=== PATIENT | male | born 1970 | race Hispanic/Latino ===

== ENCOUNTER 2018-10-13 21:24 | Inpatient (IN) | payer OTHER ==
[~2018-10-13] VITALS: Ht 177.8 cm; Wt 108.9 kg
--- OUTSIDE RECORDS SUMMARY | 2018-10-13 21:26 | XMS REPORT | Clinical Summary ---
Author Author KEVIN [facility] Address Unknown Phone Unavailable Care Team Providers Care Music Artist Name Role Phone PCP Unavailable Allergies No Known Allergies Medications End Date Status Medication Sig Dispensed Refills Start Date Active insulin glargine Inject 100 0 (BASAGLAR KWIKPEN U-100 Units INSULIN) 100 unit/mL (3 subcutaneousl mL) InPn y nightly. Active insulin aspart U-100 Inject 0 (NOVOLOG) 100 unit/mL (3 subcutaneousl mL) InPn y 3 (three) times daily before meals 20-50 Units DAILY . Active simvastatin (ZOCOR) 40 MG Take 40 mg by 0 tablet mouth daily. Active HYDROCHLOROTHIAZIDE ORAL Take 25 mg by 0 mouth daily. Active aspirin 81 MG EC tablet Take 81 mg by 0 mouth daily. Active amLODIPine (NORVASC) 10 Take 10 mg by 0 MG tablet mouth daily. Active Problems Not on file Encounters Care Team Description Date Type Specialty Ephraim Horton MD 09/08/2018 Hospital Encounter 09/08/2018 Orders Only General Internal Medicine after 10/12/2017 Social History Date Tobacco Use Types Packs/Day Years Used Never Smoker Smokeless Tobacco: Never Used Alcohol Use Drinks/Week oz/Week Comments Yes 2 Cans of 1.2 Occasional beer Alcohol Habits Answer Date Recorded How often do you have a drink containing alcohol? Never 09/08/2018 How many drinks containing alcohol do you have on Not asked a typical day when you are drinking? How often do you have six or more drinks on one Not asked occasion? Sex Assigned at Date Recorded Not on file Industry Job Start Date Occupation Not on file Not on file Not on file Travel End Travel History Travel Start No recent travel history available. Last Filed Vital Signs Time Taken Vital Sign Reading 09/08/2018 11:05 AM CDT Blood Pressure 175/79 09/08/2018 11:05 AM CDT Pulse 83 09/08/2018 11:05 AM CDT Temperature 36.4 C (97.5 F) 09/08/2018 11:05 AM CDT Respiratory Rate 16 09/08/2018 11:05 AM CDT Oxygen Saturation 99% - Inhaled Oxygen - Concentration 09/08/2018 11:05 AM CDT Weight 106 kg (233 lb 11.2 oz) 09/08/2018 11:05 AM CDT Height 177.8 cm (5' 10") 09/08/2018 11:05 AM CDT Body Mass Index 33.53 Plan of Treatment Not on file Procedures Comments Procedure Name Priority Date/Time Associated Diagnosis CBC W/PLT COUNT & AUTO Routine 09/08/2018 DIFFERENTIAL 11:22 AM CDT BASIC METABOLIC PANEL (7) Routine 09/08/2018 11:22 AM CDT CBC W/PLT COUNT & AUTO Routine 09/08/2018 DIFFERENTIAL 11:22 AM CDT ECG 12-LEAD Routine 09/08/2018 11:05 AM CDT Procedure Note - Interface, External Ris In - 09/08/2018 12:17 PM CDT Ventricula r Rate 83 BPM Atrial Rate 83 BPM P-R Interval 180 ms QRS Duration 84 ms Q-T Interval 374 ms QTC Calculatio n(Bazett) [address] [place] 31 degrees R [place] 17 degrees T [place] -41 degrees Normal sinus rhythm Left ventricula r hypertroph y with repolariza tion abnormalit y Abnormal ECG When compared with ECG of 1 14:55, T wave inversion more evident in Lateral leads ECG 12-LEAD Routine 09/08/2018 11:05 AM CDT after 10/12/2017 Results * CBC with platelet count + automated diff (09/08/2018 11:22 AM CDT) WBC 6.7 3.5 - 10.5 K/L [facility] RBC 5.59 4.63 - 6.08 M/L [facility] Hemoglobin 14.3 13.7 - 17.5 GM/DL [facility] Hematocrit 45.2 40.1 - 51.0 % [facility] MCV 80.9 79.0 - 92.2 fL [facility] MCH 25.6 (L) 25.7 - 32.2 pg [facility] MCHC 31.6 (L) 32.3 - 36.5 GM/DL [facility] RDW 13.4 11.6 - 14.4 % [facility] Platelets 125 (L) 150 - 450 K/CU MM [facility] MPV 13.4 (H) 9.4 - 12.4 fL [facility] nRBC 0 0 - 0 /100 WBC [facility] % Neutros 70 % [facility] % Lymphs 22 % [facility] % Monos 6 % [facility] % Eos 2 % [facility] % Baso 0 % [facility] # Neutros 4.68 1.78 - 5.38 K/L [facility] # Lymphs 1.46 1.32 - 3.57 K/L [facility] # Monos 0.41 0.30 - 0.82 K/L [facility] # Eos 0.11 0.04 - 0.54 K/L [facility] # Baso 0.01 0.01 - 0.08 K/L [facility] Immature 0 0 - 1 % [facility] Granulocytes-[facility] Specimen Blood Performing Organization Address City/State/Zipcode Phone Number [facility] [address] [place] [address] MEDICAL CENTER * Basic Metabolic Panel (09/08/2018 11:22 AM CDT) Sodium 135 (L) 136 - 145 meq/L [facility] Potassium 4.6 3.5 - 5.1 meq/L [facility] Chloride 100 98 - 107 meq/L [facility] CO2 29 22 - 29 meq/L [facility] BUN 11 7 - 21 mg/dL [facility] Creatinine 1.03 0.57 - 1.25 mg/dL [facility] Glucose 446 (HH) 70 - 105 mg/dL [facility] Calcium 9.0 8.4 - 10.2 mg/dL [facility] EGFR 77Comment: ESTIMATED GFR IS mL/min/1.73 sq m [facility] NOT ACCURATE CREATININE [facility] CLEARANCE IN PREDICTING GLOMERULAR FILTRATION RATE. ESTIMATED GFR IS NOT APPLICABLE FOR DIALYSIS PATIENTS. Specimen Blood Performing Organization Address City/State/Zipcode Phone Number [facility] [address] [place] [address] [facility] * ECG 12 lead (09/08/2018 11:05 AM CDT) Specimen Narrative Performed At Ventricular Rate 83 BPM GE MUSE Atrial Rate 83 BPM P-R Interval 180 ms QRS Duration 84 ms Q-T Interval 374 ms QTC Calculation(Bazett) [address] [place] 31 degrees R [place] 17 degrees T [place] -41 degrees Normal sinus rhythm Left ventricular hypertrophy with repolarization abnormality Abnormal ECG When compared with ECG of 29-JAN-2011 14:55, T wave inversion more evident in Lateral leads Confirmed by MD Gauthier Roberto ([id number]) on 09/08/2018 1:48:30 PM Procedure Note Interface, External Ris In - 09/08/2018 1:48 PM CDT Ventricular Rate 83 BPM Atrial Rate 83 BPM P-R Interval 180 ms QRS Duration 84 ms Q-T Interval 374 ms QTC Calculation(Bazett) 439 ms [address] [place] 31 degrees R [place] 17 degrees T [place] -41 degrees Normal sinus rhythm Left ventricular hypertrophy with repolarization abnormality Abnormal ECG When compared with ECG of 29-JAN-2011 14:55, T wave inversion more evident in Lateral leads Confirmed by MD Gauthier Roberto ([id number]) on 09/08/2018 1:48:30 PM Performing Organization Address City/State/Zipcode Phone Number GE MUSE after 10/12/2017 Insurance Payer Benefit Subscriber ID Type Phone Address Plan / Group AETNA - [employer]GD CARE AETNA xxxxxxxxxx HMO/POS [employer] ACCESS
--- OUTSIDE RECORDS SUMMARY | 2018-10-13 21:27 | XMS REPORT ---
Author Author [facility] Address Unknown Phone Unavailable Care Team Providers Care Sales And Production Manager Name Role Phone ANGEL KIDD Unavailable Unavailable Problems This patient has no known problems. Allergies, Adverse Reactions, Alerts This patient has no known allergies or adverse reactions. Medications This patient has no known medications. Results Test Description Test Time Test Comments Text Results Atomic Results Result Comments BASIC METABOLIC PANEL 2018-09-08 12:14:00 SODIUM (BEAKER) (test wzqn=070) 135 meq/L 136-145 POTASSIUM (BEAKER) (test fryq=106) 4.6 meq/L 3.5-5.1 CHLORIDE (BEAKER) (test sbaw=659) 100 meq/L 98-107 CO2 (BEAKER) (test feks=343) 29 meq/L 22-29 BLOOD UREA NITROGEN (BEAKER) (test bzlt=996) 11 mg/dL 7-21 CREATININE (BEAKER) (test rdsd=779) 1.03 mg/dL 0.57-1.25 GLUCOSE RANDOM (BEAKER) (test lmfg=394) 446 mg/dL 70-105 CALCIUM (BEAKER) (test lasl=121) 9.0 mg/dL 8.4-10.2 EGFR (BEAKER) (test uugs=6020) 77 mL/min/1.73 sq m ESTIMATED GFR IS NOT ACCURATE CREATININE CLEARANCE IN PREDICTING GLOMERULAR FILTRATION RATE. ESTIMATED GFR IS NOT APPLICABLE FOR DIALYSIS PATIENTS. CBC W/PLT COUNT & AUTO [id number] 11:35:00* Test Item Value Reference Range Comments WHITE BLOOD CELL COUNT (BEAKER) (test ftcs=744) 6.7 K/ L 3.5-10.5 RED BLOOD CELL COUNT (BEAKER) (test zenn=230) 5.59 M/ L 4.63-6.08 HEMOGLOBIN (BEAKER) (test vvrn=809) 14.3 GM/DL 13.7-17.5 HEMATOCRIT (BEAKER) (test noum=642) 45.2 % 40.1-51.0 MEAN CORPUSCULAR VOLUME (BEAKER) (test iuhl=145) 80.9 fL 79.0-92.2 MEAN CORPUSCULAR HEMOGLOBIN (BEAKER) (test oajq=947) 25.6 pg 25.7-32.2 MEAN CORPUSCULAR HEMOGLOBIN CONC (BEAKER) (test cxjw=665) 31.6 GM/DL 32.3-36.5 RED CELL DISTRIBUTION WIDTH (BEAKER) (test pghy=179) 13.4 % 11.6-14.4 PLATELET COUNT (BEAKER) (test xkhq=061) 125 K/CU MM 150-450 MEAN PLATELET VOLUME (BEAKER) (test mkjb=155) 13.4 fL 9.4-12.4 NUCLEATED RED BLOOD CELLS (BEAKER) (test ymuz=883) 0 /100 WBC 0-0 NEUTROPHILS RELATIVE PERCENT (BEAKER) (test xwed=827) 70 % LYMPHOCYTES RELATIVE PERCENT (BEAKER) (test nrmj=794) 22 % MONOCYTES RELATIVE PERCENT (BEAKER) (test jzvq=122) 6 % EOSINOPHILS RELATIVE PERCENT (BEAKER) (test poou=426) 2 % BASOPHILS RELATIVE PERCENT (BEAKER) (test tans=801) 0 % NEUTROPHILS ABSOLUTE COUNT (BEAKER) (test dvbj=877) 4.68 K/ L 1.78-5.38 LYMPHOCYTES ABSOLUTE COUNT (BEAKER) (test vlyw=322) 1.46 K/ L 1.32-3.57 MONOCYTES ABSOLUTE COUNT (BEAKER) (test saor=960) 0.41 K/ L 0.30-0.82 EOSINOPHILS ABSOLUTE COUNT (BEAKER) (test lygm=124) 0.11 K/ L 0.04-0.54 BASOPHILS ABSOLUTE COUNT (BEAKER) (test rgru=200) 0.01 K/ L 0.01-0.08 IMMATURE GRANULOCYTES-RELATIVE PERCENT (BEAKER) (test vgfw=4772) 0 % 0-1
[2018-10-13] MEDS ORDERED: CLONIDINE HCL 0.2 MG TAB PO ONE (21:45)
[2018-10-13] MEDS ORDERED: AMLODIPINE BESYLATE 10 MG TAB PO ONE (21:45)
[2018-10-13 21:54] LABS: BASOPHILS % 0.3 % (0.0-1.0); EOSINOPHILS # (AUTO) 0.1 (0.0-0.4); EOSINOPHILS % 1.5 % (0.0-6.0); HEMOGLOBIN 13.7 g/dL (14.0-18.0); LYMPHOCYTES # (AUTO) 1.4 (1.0-3.2); LYMPHOCYTES % 22.3 % (18.0-39.1); MEAN CORPUSCULAR HEMOGLOBIN 25.4 pg (28-32); MEAN CORPUSCULAR HGB CONC 32.6 g/dL (31-35); MEAN CORPUSCULAR VOLUME 77.8 fL (81-99); MONOCYTES # (AUTO) 0.4 (0.2-0.8); MONOCYTES % 6.2 % (4.4-11.3); NEUTROPHILS # (AUTO) 4.2 (2.1-6.9); NEUTROPHILS % 69.4 % (38.7-80.0); PLATELET COUNT 154 x10e3/uL (140-360); RED CELL DISTRIBUTION WIDTH 14.3 % (11.7-14.4)
--- NOTE | 2018-10-13 21:58 | NUR ---
RADIOLOGY AT BEDSIDE FOR CXR AT THIS TIME.
[2018-10-13 22:10] LABS: ALANINE AMINOTRANSFERASE 21 IU/L (0-55); ALBUMIN 3.1 g/dL (3.5-5.0); ALBUMIN/GLOBULIN RATIO 0.9 (0.8-2.0); ALKALINE PHOSPHATASE 68 IU/L (40-150); ANION GAP 14.3 mmol/L (8-16); BLOOD UREA NITROGEN 14 mg/dL (7-26); BUN/CREATININE RATIO 12 (6-25); CALCIUM 9.1 mg/dL (8.4-10.2); CARBON DIOXIDE 26 mmol/L (22-29); CHLORIDE 97 mmol/L (98-107); CREATINE KINASE 80 IU/L (30-200); CREATININE, SERUM 1.15 mg/dL (0.72-1.25); EST GLOMERULAR FILTRATION RATE > 60 ML/MIN (60-); POTASSIUM 4.3 mmol/L (3.5-5.1); SODIUM 133 mmol/L (136-145)
[2018-10-13 22:11] LABS: GLUCOSE 548 mg/dL (74-118)
--- NOTE | 2018-10-13 22:13 | NUR ---
DR. VILLALTA AND RN NOTIFIED AND AWARE OF CRIAL LAB VALUE; GLUCOSE 548.
[2018-10-13] MEDS ORDERED: INSULIN REGULAR, HUMAN 100 UNIT/1 ML 3ML VIAL SQ ONE (22:15)
--- NOTE | 2018-10-13 22:29 | Diagnostic Imaging Report ---
Examination: Single AP view of the chest. COMPARISON: None. INDICATION: Shortness of breath DISCUSSION: Lines/tubes: Sternotomy wires. Lungs: Pulmonary edema. Pleura: There is no pleural effusion or pneumothorax. Heart and mediastinum: Cardiomegaly. Bones and soft tissues: No acute bony abnormalities. IMPRESSION: 1. Cardiomegaly with edema Signed by: Dr. Jaden Sahni M.D. on 10/13/2018 10:25 PM
--- NOTE | 2018-10-13 22:40 | NUR ---
DR. VILLALTA AT BEDSIDE UPDATING PATIENT AND FAMILY ON PLAN OF CARE, BASED ON DIAGNOSTICS AND ASSESSMENT, AND INTENT TO ADMIT PT FOR MANAGEMENT OF CARE. PT VERBALIZES UNDERSTANDING, NO NEEDS VOICED AT THIS TIME.
[2018-10-13] MEDS ORDERED: FUROSEMIDE INJ 10 MG/ML 4 ML VIAL IV ONE (22:45)
--- NOTE | 2018-10-13 22:45 | NUR ---
PT GIVEN URINAL FOR VOIDING AND I&O.
[2018-10-13] MEDS: NITROGLYCERIN 2% OINT 1 GM PKT TOP SCH (22:52)
--- OUTSIDE RECORDS SUMMARY | 2018-10-13 22:59 | XMS REPORT | Clinical Summary ---
Author Author KEVIN [facility] Address Unknown Phone Unavailable Care Team Providers Care Fiberglass Model Maker Name Role Phone PCP Unavailable Allergies No [...] ms QTC Calculatio n(Bazett) 439 ms P [place] 31 degrees R [place] 17 degrees T [place] -41 degrees Normal sinus rhythm Left ventricula r hypertroph y with repolariza tion abnormalit y Abnormal ECG When compared with ECG of 1 14:55, T wave inversion more evident in Lateral leads ECG 12-LEAD Routine 09/08/2018 11:05 AM CDT after 10/12/2017 Results * CBC with platelet count + automated diff (09/08/2018 11:22 AM CDT) WBC 6.7 3.5 - 10.5 K/L [facility] RBC 5.59 4.63 - 6.08 M/L [facility] Hemoglobin 14.3 13.7 - 17.5 GM/DL [facility] Hematocrit 45.2 40.1 - 51.0 % [facility] MCV 80.9 79.0 - 92.2 fL [facility] MCH 25.6 (L) 25.7 - 32.2 pg [facility] MCHC 31.6 (L) 32.3 - 36.5 GM/DL [facility] RDW 13.4 11.6 - 14.4 % [facility] Platelets 125 (L) 150 - 450 K/CU MM [facility] MPV 13.4 (H) 9.4 - 12.4 fL [facility] nRBC 0 0 - 0 /100 WBC [facility] % Neutros 70 % [facility] % Lymphs 22 % [facility] % Monos 6 % [facility] % Eos 2 % [facility] % Baso 0 % [facility] # Neutros 4.68 1.78 - 5.38 K/L [facility] # Lymphs 1.46 1.32 - 3.57 K/L [facility] # Monos 0.41 0.30 - 0.82 K/L [facility] # Eos 0.11 0.04 - 0.54 K/L [facility] # Baso 0.01 0.01 - 0.08 K/L [facility] Immature 0 0 - 1 % [facility] Granulocytes-[facility] Specimen Blood Performing Organization Address City/State/Zipcode Phone Number [facility] [address] [place] [address] MEDICAL CENTER * Basic Metabolic Panel (09/08/2018 11:22 AM CDT) Sodium 135 (L) 136 - 145 meq/L [facility] Potassium 4.6 3.5 - 5.1 meq/L [facility] Chloride 100 98 - 107 meq/L [facility] CO2 29 22 - 29 meq/L [facility] BUN 11 7 - 21 mg/dL [facility] Creatinine 1.03 0.57 - 1.25 mg/dL [facility] Glucose 446 (HH) 70 - 105 mg/dL [facility] Calcium 9.0 8.4 - 10.2 mg/dL [facility] EGFR 77Comment: ESTIMATED GFR IS mL/min/1.73 sq m [facility] NOT ACCURATE CREATININE [facility] CLEARANCE IN PREDICTING GLOMERULAR FILTRATION RATE. ESTIMATED GFR IS NOT APPLICABLE FOR DIALYSIS PATIENTS. Specimen Blood Performing Organization Address City/State/Zipcode Phone Number [facility] [address] [place] [address] [facility] * ECG 12 lead (09/08/2018 11:05 AM CDT) Specimen Narrative Performed At Ventricular Rate 83 BPM GE MUSE Atrial Rate 83 BPM P-R Interval 180 ms QRS Duration 84 ms Q-T Interval 374 ms QTC Calculation(Bazett) 439 ms P [place] 31 degrees R Sebastian 17 degrees T [place] -41 degrees Normal sinus rhythm Left ventricular [...] 374 ms QTC Calculation(Bazett) 439 ms P [place] 31 degrees R Sebastian 17 degrees T [place] -41 degrees Normal sinus rhythm Left ventricular [...]
[2018-10-13] MEDS ORDERED: HYDRALAZINE HCL 20 MG/ML VIAL IV PRN (23:00)
[2018-10-13] MEDS ORDERED: DEXTROSE 50% SYRINGE 50 ML IV PRN (23:00)
[2018-10-14] VITALS (10 sets, daily range): BP systolic 153–204; BP diastolic 72–97
[2018-10-14] MEDS ORDERED: SIMVASTATIN40 MG PO (00:40)
[2018-10-14] MEDS ORDERED: NOVOLOG100 UNIT/1 SQ (00:40)
[2018-10-14] MEDS ORDERED: HYDROCHLOROTHIA25 MG (00:40)
[2018-10-14] MEDS ORDERED: basaglar SQ (00:40)
[2018-10-14] MEDS ORDERED: AMLODIPINE BESY10 MG PO (00:40)
--- NOTE | 2018-10-14 01:17 | NUR ---
I checked the blood pressure for the patient when he arrived to the unit and it was 183/81. Patient stated he started feeling a little dizzy and told him it was a common side effect of the blood pressure medication that were administered earlier in ER. I checked the blood pressure again at 0115 and it decrease to 169/78. Blood glucose decreased from 385 (reported by ER Nurse after insulin was administered) to 359. I advice the patient to use call light and to notify me of any changes in his condition. Will continue monitoring.
[2018-10-14] MEDS ORDERED: ONDANSETRON HCL INJ 2MG/ML 2ML 2 MG/ML VIAL IV PRN (03:00)
[2018-10-14] MEDS ORDERED: ACETAMINOPHEN 325 MG TAB PO PRN (03:00)
[2018-10-14 05:59] LABS: BASOPHILS % 0.2 % (0.0-1.0); EOSINOPHILS # (AUTO) 0.1 (0.0-0.4); EOSINOPHILS % 0.8 % (0.0-6.0); HEMATOCRIT 41.8 % (38.2-49.6); HEMOGLOBIN 13.8 g/dL (14.0-18.0); LYMPHOCYTES # (AUTO) 1.3 (1.0-3.2); LYMPHOCYTES % 14.6 % (18.0-39.1); MEAN CORPUSCULAR HEMOGLOBIN 25.9 pg (28-32); MEAN CORPUSCULAR VOLUME 78.6 fL (81-99); MONOCYTES # (AUTO) 0.6 (0.2-0.8); MONOCYTES % 6.4 % (4.4-11.3); NEUTROPHILS # (AUTO) 6.8 (2.1-6.9); NEUTROPHILS % 77.5 % (38.7-80.0); PLATELET COUNT 178 x10e3/uL (140-360); RED BLOOD COUNT 5.32 x10e6/uL (4.3-5.7); RED CELL DISTRIBUTION WIDTH 14.3 % (11.7-14.4)
[2018-10-14 06:15] LABS: CREATINE KINASE MB 1.8 ng/mL (0-5.0)
[2018-10-14] MEDS: NITROGLYCERIN 2% OINT 1 GM PKT TOP SCH ×3 (06:15→17:27)
[2018-10-14 06:36] LABS: ALANINE AMINOTRANSFERASE 21 IU/L (0-55); ALBUMIN 3.1 g/dL (3.5-5.0); ALBUMIN/GLOBULIN RATIO 0.9 (0.8-2.0); ALKALINE PHOSPHATASE 66 IU/L (40-150); ANION GAP 14.6 mmol/L (8-16); BLOOD UREA NITROGEN 19 mg/dL (7-26); BUN/CREATININE RATIO 16 (6-25); CALCIUM 9.4 mg/dL (8.4-10.2); CARBON DIOXIDE 28 mmol/L (22-29); CHLORIDE 96 mmol/L (98-107); CREATININE, SERUM 1.16 mg/dL (0.72-1.25); EST GLOMERULAR FILTRATION RATE > 60 ML/MIN (60-); GLUCOSE 354 mg/dL (74-118); POTASSIUM 4.6 mmol/L (3.5-5.1); SODIUM 134 mmol/L (136-145)
--- NOTE | 2018-10-14 06:36 | NUR ---
The patient is sleeping on the recliner as he starts experiencing SOB when laying flat. Reports no pain/discomfort at this time. Room air at the moment, but has O2 protocol. RAC IV intact. Nitro patch placed on his left upper arm. Recliner wheels locked. awaiting for Lab results/cardiac markers.
--- NOTE | 2018-10-14 07:33 | NUR ---
RECEIVED PATIENT RESTING IN RECLINER. NO SIGNS OF DISTRESS. RECLINER WHEELS LOCKED, CALL LIGHT IN REACH, WILL CONTINUE TO MONITOR PATIENT.
[2018-10-14] MEDS: FAMOTIDINE 20 MG TAB PO SCH ×2 (08:16→17:27)
[2018-10-14] MEDS: FUROSEMIDE INJ 10 MG/ML 4 ML VIAL IV SCH ×2 (08:16→17:27)
[2018-10-14] MEDS: LORATADINE 10 MG TAB PO SCH (08:16)
[2018-10-14] MEDS: HYDROCHLOROTHIAZIDE 25 MG TAB PO SCH (08:16)
[2018-10-14] MEDS: INSULIN REGULAR, HUMAN 100 UNIT/1 ML 3ML VIAL SQ SCH ×4 (08:36→20:03)
[2018-10-14] MEDS ORDERED: AMLODIPINE BESYLATE 10 MG TAB PO SCH (09:00)
--- NOTE | 2018-10-14 09:57 | NUR ---
PATIENT A/O X3, EVEN RESPIRATIONS ON RA. BOWEL SOUNDS ACTIVE, SKIN INTACT, 2+ PITTING BLE EDEMA. PATIENT AMBULATES AND VOIDS VIA TOILET. RIGHT AC 18 [address]. IV INTACT AND PATENT. NO PAIN OR DISCOMFORT AT THIS TIME. CALL LIGHT IN REACH WILL CONTINUE TO MONITOR PATIENT.
[2018-10-14] MEDS: HYDRALAZINE HCL 20 MG/ML VIAL IV PRN ×3 (11:36→21:40)
--- NOTE | 2018-10-14 12:40 | NUR ---
NOTIFIED NEURO OPHTHALMOLOGIST СЕРГЕЙ OF BP 202/92 AFTER PRN HYDRALAZINE GIVEN. ORDER TO DC AMLODIPINE AND START NIFEDIPINE 30 MG DAILY. NEW ORDERS IMPLEMENTED.
[2018-10-14] MEDS ORDERED: NIFEDIPINE CR 30 MG TAB PO ONE (13:00)
--- NOTE | 2018-10-14 19:29 | NUR ---
Report taken from am rn .walking rounds done.lyeing quietly in the bed.
[2018-10-14] MEDS ORDERED: BASAGLAR SQ SCH (21:00)
[2018-10-14] MEDS: BASAGLAR SQ SCH (21:00)
[2018-10-14] MEDS: SIMVASTATIN 40 MG TAB PO SCH (21:19)
--- NOTE | 2018-10-14 23:34 | NUR ---
Assessment done.no resp.distress.no pain voiced.voided.bed locked and in lowest position.phone and call light within reach.instructed to call for assistance as needed.
[2018-10-15] VITALS (8 sets, daily range): BP systolic 132–175; BP diastolic 61–79
[2018-10-15] MEDS: NITROGLYCERIN 2% OINT 1 GM PKT TOP SCH ×4 (00:18→17:44)
--- NOTE | 2018-10-15 03:18 | NUR ---
Blood main and sent to the lab.pt tolerated well.
[2018-10-15 03:30] LABS: BASOPHILS % 0.2 % (0.0-1.0); EOSINOPHILS # (AUTO) 0.1 (0.0-0.4); HEMATOCRIT 43.2 % (38.2-49.6); HEMOGLOBIN 14.3 g/dL (14.0-18.0); LYMPHOCYTES # (AUTO) 1.3 (1.0-3.2); LYMPHOCYTES % 14.2 % (18.0-39.1); MEAN CORPUSCULAR HEMOGLOBIN 25.6 pg (28-32); MEAN CORPUSCULAR HGB CONC 33.1 g/dL (31-35); MEAN CORPUSCULAR VOLUME 77.3 fL (81-99); MONOCYTES # (AUTO) 0.6 (0.2-0.8); NEUTROPHILS # (AUTO) 7.3 (2.1-6.9); NEUTROPHILS % 78.3 % (38.7-80.0); PLATELET COUNT 169 x10e3/uL (140-360); RED BLOOD COUNT 5.59 x10e6/uL (4.3-5.7); RED CELL DISTRIBUTION WIDTH 14.5 % (11.7-14.4)
[2018-10-15 03:47] LABS: ANION GAP 15.1 mmol/L (8-16); CALCIUM 9.1 mg/dL (8.4-10.2); CARBON DIOXIDE 27 mmol/L (22-29); CHLORIDE 96 mmol/L (98-107); CREATININE, SERUM 0.83 mg/dL (0.72-1.25); EST GLOMERULAR FILTRATION RATE > 60 ML/MIN (60-); GLUCOSE 199 mg/dL (74-118); MAGNESIUM 1.8 MG/DL (1.3-2.1); SODIUM 135 mmol/L (136-145)
[2018-10-15 04:07] LABS: POTASSIUM 3.1 mmol/L (3.5-5.1)
[2018-10-15 04:14] LABS: BLOOD UREA NITROGEN 18 mg/dL (7-26); BUN/CREATININE RATIO 22 (6-25)
[2018-10-15] MEDS ORDERED: POTASSIUM CHLORIDE 20 MEQ TAB CR PO STA (04:18)
[2018-10-15 04:27] LABS: CHOL/HDL RATIO 3.6 (3.9-4.7)
[2018-10-15 04:47] LABS: FREE T4 (FREE THYROXINE) 1.1 ng/dL (0.8-1.8); THYROID STIMULATING HORMONE 1.598 uIU/mL (0.350-4.940)
--- NOTE | 2018-10-15 06:19 | NUR ---
Certified Activities Director Delia into the unit.ordered consults with .informed to .
--- NOTE | 2018-10-15 07:00 | NUR ---
BEDSIDE REPORT RECEIVED FROM KORI AU. PT DENIES NEEDS AT THIS TIME.
[2018-10-15] MEDS: FAMOTIDINE 20 MG TAB PO SCH ×2 (08:25→16:40)
[2018-10-15] MEDS: LORATADINE 10 MG TAB PO SCH (08:25)
[2018-10-15] MEDS: HYDROCHLOROTHIAZIDE 25 MG TAB PO SCH (08:25)
[2018-10-15] MEDS: FUROSEMIDE INJ 10 MG/ML 4 ML VIAL IV SCH ×2 (08:25→16:40)
[2018-10-15] MEDS: INSULIN REGULAR, HUMAN 100 UNIT/1 ML 3ML VIAL SQ SCH ×4 (08:27→20:46)
[2018-10-15] MEDS ORDERED: LOSARTAN POTASSIUM 25 MG TAB PO SCH (09:00)
[2018-10-15] MEDS ORDERED: NIFEDIPINE CR 30 MG TAB PO SCH ×2 (09:00)
--- NOTE | 2018-10-15 13:48 | NUR ---
Nutrition Screen Note RD Recommendation for Physician: 1.Continue with ADA diet , add cardiac restrictions Plan of Care: RD following, monitoring for tolerance and adequacy, diet education Nutrition reason for involvement: New CHF diagnosis Primary Diagnose(s): CHF, Dyspnea, and Diabetes Type 2 PMH: CHF, Dyspnea, Diabetes Type 2 Ht: 70 in Wt: 240 lbs BMI: 34.5 kg/m2 IBW: 166lbs RD Assessment: (10/15) Chart reviewed. Labs and meds reviewed. Pt is a 48 y/o M with PMH of DM2 x 10 years. Reports new dx of CHF per MD. Noted no previous medical hx of heart failure. Patient reports good appetite and intake. Denies any N/V/D/C and any difficulties chewing or swallowing. Per pt, no recent significant weight changes . Noted following diabetic diet at home. Agreed to dietary education. Current Diet: ADA diet Malnutrition Evaluation (10/15) The patient does not meet criteria for a specified degree of malnutrition at this time. Will re-evaluate at follow-up as appropriate. Diet Education Needs Assessment: Diet education indicated, pt was agreeable Learner(s): pt Time spent: 15-20 min Barriers: No barriers identified. Cultural/Language Modifications: No cultural/language modifications noted. Readiness: Pt eager to learn. Method:Verbal and written education provided Topics: Choosing low sodium foods, limited added sodium in diet, fluid restriction, limiting carbohydrate rich foods with diabetic MyPlate method Understanding/Compliance: Expect good understanding from pt. Will benefit from reinforcement. All questions have been answered. Nutrition Care Level: Low Signed: Mary Anne Simpson MS, RDN, LD
[2018-10-15] MEDS: POTASSIUM CHLORIDE 20 MEQ TAB CR PO SCH (16:41)
[2018-10-15] MEDS: CARVEDILOL 12.5 MG TAB PO SCH (16:41)
--- NOTE | 2018-10-15 19:00 | Consultation ---
DATE OF CONSULTATION: 10/15/2018 Cardiology Consultation HISTORY OF PRESENT ILLNESS: This is a 48-year-old man with history of coronary artery disease, status post coronary artery bypass graft surgery in 2011/2012, hypertension, hyperlipidemia, diabetes mellitus, and obesity. The patient presented with progressively worsening shortness of breath, dyspnea on exertion, and lower extremity swelling, symptoms were moderate intensity, progressively worsening, worse with exertion, associated with some congestion in his chest. No typical angina. REVIEW OF SYSTEMS: Twelve-point review of system was conducted, is negative otherwise as stated above in the HPI. PAST MEDICAL HISTORY: As stated above in the HPI. PAST SURGICAL HISTORY: Coronary artery bypass graft surgery. PAST FAMILY HISTORY: No premature coronary artery disease and cardiac . SOCIAL HISTORY: No illicit drug, alcohol, or tobacco use. ALLERGIES: NO KNOWN DRUG ALLERGIES. MEDICATIONS: See medications reconciliation form. PHYSICAL EXAMINATION: VITAL SIGNS: Temperature is 97.3, heart rate is 82, respirations are 18, blood pressure is 165/72, and oxygen saturation is 96% on room air. GENERAL: He is a well-appearing, well-built, in no apparent distress. Alert and oriented x3. HEAD: Normocephalic, atraumatic. Eyes, extraocular muscles are intact. Conjunctivae clear. NECK: No JVD. No bruits. CARDIOVASCULAR: Regular rate and rhythm. LUNGS: Clear to auscultation. ABDOMEN: Soft, nontender, nondistended. EXTREMITIES: No clubbing, cyanosis, 1+ pitting edema. NEUROLOGIC: No focal deficits noted. CARDIOVASCULAR MEDICATIONS: Reviewed. LABORATORY DATA: Hemoglobin is 14. Creatinine 0.8 and potassium 3.1. Total cholesterol 226. Hemoglobin A1c is 14. RADIOGRAPHIC DATA: Echocardiogram showed left ventricular ejection fraction of 35% to 40%. Chest x-ray shows cardiomegaly with pulmonary edema. IMPRESSION: 1. Acute systolic congestive heart failure. 2. Coronary artery disease, status post prior coronary artery bypass graft surgery. 3. Uncontrolled diabetes mellitus. 4. Hypertension. RECOMMENDATIONS: Discontinue nifedipine. Increase losartan to 50 mg daily. Start carvedilol. Continue Lasix 40 mg IV b.i.d. for diuresis. Start aspirin and continue high-dose statin. The patient will require cardiac catheterization with possible intervention. Philipp [place], DO BM/JAREDL /[id number]
[2018-10-15] MEDS: SIMVASTATIN 40 MG TAB PO SCH (20:45)
[2018-10-15] MEDS: BASAGLAR SQ SCH (20:45)
[2018-10-16] VITALS (12 sets, daily range): BP systolic 124–161; BP diastolic 59–73
[2018-10-16] MEDS: NITROGLYCERIN 2% OINT 1 GM PKT TOP SCH ×4 (00:16→17:30)
[2018-10-16 03:46] LABS: BASOPHILS % 0.1 % (0.0-1.0); EOSINOPHILS # (AUTO) 0.1 (0.0-0.4); HEMOGLOBIN 13.6 g/dL (14.0-18.0); LYMPHOCYTES # (AUTO) 1.3 (1.0-3.2); LYMPHOCYTES % 18.5 % (18.0-39.1); MEAN CORPUSCULAR HEMOGLOBIN 25.3 pg (28-32); MEAN CORPUSCULAR HGB CONC 32.4 g/dL (31-35); MEAN CORPUSCULAR VOLUME 78.1 fL (81-99); MONOCYTES # (AUTO) 0.6 (0.2-0.8); MONOCYTES % 8.8 % (4.4-11.3); NEUTROPHILS # (AUTO) 4.9 (2.1-6.9); NEUTROPHILS % 70.3 % (38.7-80.0); PLATELET COUNT 180 x10e3/uL (140-360); RED BLOOD COUNT 5.38 x10e6/uL (4.3-5.7); RED CELL DISTRIBUTION WIDTH 14.5 % (11.7-14.4)
[2018-10-16 04:06] LABS: ANION GAP 15.2 mmol/L (8-16); BLOOD UREA NITROGEN 21 mg/dL (7-26); BUN/CREATININE RATIO 25 (6-25); CARBON DIOXIDE 28 mmol/L (22-29); CHLORIDE 99 mmol/L (98-107); CREATININE, SERUM 0.85 mg/dL (0.72-1.25); EST GLOMERULAR FILTRATION RATE > 60 ML/MIN (60-); GLUCOSE 104 mg/dL (74-118); POTASSIUM 3.2 mmol/L (3.5-5.1); SODIUM 139 mmol/L (136-145)
[2018-10-16] MEDS ORDERED: POTASSIUM CHLORIDE 20 MEQ TAB CR PO STA (04:43)
--- NOTE | 2018-10-16 06:54 | NUR ---
RECEIVED PATIENT RESTING IN BED. NO ACUTE DISTRESS NOTED. DENIES PAIN OR DISCOMFORT AT THIS TIME. CALL LIGHT WITHIN REACH. BED IN THE LOWEST POSITION.
[2018-10-16] MEDS: FUROSEMIDE INJ 10 MG/ML 4 ML VIAL IV SCH ×2 (08:36→16:37)
[2018-10-16] MEDS: LORATADINE 10 MG TAB PO SCH (08:36)
[2018-10-16] MEDS: FAMOTIDINE 20 MG TAB PO SCH ×2 (08:36→16:37)
[2018-10-16] MEDS: CARVEDILOL 12.5 MG TAB PO SCH ×2 (08:37→16:37)
[2018-10-16] MEDS: INSULIN REGULAR, HUMAN 100 UNIT/1 ML 3ML VIAL SQ SCH ×4 (08:37→20:44)
[2018-10-16] MEDS: HYDROCHLOROTHIAZIDE 25 MG TAB PO SCH (08:37)
[2018-10-16] MEDS: POTASSIUM CHLORIDE 20 MEQ TAB CR PO SCH ×2 (08:38→16:38)
[2018-10-16] MEDS ORDERED: LOSARTAN POTASSIUM 25 MG TAB PO SCH (09:00)
[2018-10-16] MEDS ORDERED: ONDANSETRON HCL 4 MG ORAL DISINTEGRATING TAB PO PRN (11:00)
[2018-10-16] MEDS ORDERED: LOSARTAN POTASSIUM 25 MG TAB PO NR (14:30)
--- NOTE | 2018-10-16 17:28 | Progress Note ---
DATE: 10/16/2018 Cardiology Progress Note SUBJECTIVE: The patient is feeling better, still with some lower extremity swelling. OBJECTIVE: VITAL SIGNS: Temperature is 97.2, heart rate 74, respirations are 19, blood pressure is 161/73, and oxygen saturation is 97% on room air. GENERAL: Well appearing, well built, in no apparent distress. CARDIOVASCULAR: Regular rate and rhythm. LUNGS: Clear to auscultation. ABDOMEN: Soft, nontender, and nondistended. EXTREMITIES: 1+ edema. CARDIOVASCULAR MEDICATIONS: Reviewed. LABORATORY DATA: Reviewed. TELEMETRY: Monitoring revealed normal sinus rhythm. IMPRESSION: 1. Acute systolic congestive heart failure. 2. Coronary artery disease, status post prior coronary artery bypass graft surgery. 3. Uncontrolled diabetes mellitus. 4. Hypertension. RECOMMENDATIONS: Increase losartan to 100 mg daily. Continue carvedilol. Continue Lasix intravenously for diuresis. Continue aspirin and statin. The patient will require cardiac catheterization tomorrow with possible intervention. Philipp Shelley DO BM/MODL /[id number]
--- NOTE | 2018-10-16 19:05 | NUR ---
REPORT GIVEN TO ONCOMING NURSE. PATIENT IS IN STABLE CONDITION. PATIENT DENIES PAIN OR DISCOMFORT AT THIS TIME. CALL LIGHT WITHIN REACH. BED IN THE LOWEST POSITION.
[2018-10-16] MEDS: BASAGLAR SQ SCH (20:43)
[2018-10-16] MEDS: SIMVASTATIN 40 MG TAB PO SCH (20:43)
[2018-10-17] VITALS (7 sets, daily range): BP systolic 127–173; BP diastolic 60–83
[2018-10-17] MEDS: NITROGLYCERIN 2% OINT 1 GM PKT TOP SCH ×4 (00:06→18:28)
[2018-10-17 04:17] LABS: BASOPHILS % 0.3 % (0.0-1.0); EOSINOPHILS # (AUTO) 0.2 (0.0-0.4); EOSINOPHILS % 2.6 % (0.0-6.0); HEMATOCRIT 41.6 % (38.2-49.6); HEMOGLOBIN 13.4 g/dL (14.0-18.0); LYMPHOCYTES # (AUTO) 1.7 (1.0-3.2); LYMPHOCYTES % 27.5 % (18.0-39.1); MEAN CORPUSCULAR HEMOGLOBIN 25.4 pg (28-32); MEAN CORPUSCULAR HGB CONC 32.2 g/dL (31-35); MEAN CORPUSCULAR VOLUME 78.9 fL (81-99); MONOCYTES # (AUTO) 0.6 (0.2-0.8); MONOCYTES % 9.2 % (4.4-11.3); NEUTROPHILS # (AUTO) 3.7 (2.1-6.9); NEUTROPHILS % 60.1 % (38.7-80.0); PLATELET COUNT 178 x10e3/uL (140-360); RED BLOOD COUNT 5.27 x10e6/uL (4.3-5.7); RED CELL DISTRIBUTION WIDTH 14.3 % (11.7-14.4)
[2018-10-17 04:35] LABS: ANION GAP 10.4 mmol/L (8-16); BLOOD UREA NITROGEN 22 mg/dL (7-26); BUN/CREATININE RATIO 25 (6-25); CALCIUM 9.1 mg/dL (8.4-10.2); CARBON DIOXIDE 30 mmol/L (22-29); CHLORIDE 98 mmol/L (98-107); CREATININE, SERUM 0.87 mg/dL (0.72-1.25); EST GLOMERULAR FILTRATION RATE > 60 ML/MIN (60-); GLUCOSE 177 mg/dL (74-118); MAGNESIUM 1.8 MG/DL (1.3-2.1); POTASSIUM 3.4 mmol/L (3.5-5.1); SODIUM 135 mmol/L (136-145)
[2018-10-17] MEDS ORDERED: POTASSIUM CHLORIDE 20 MEQ TAB CR PO STA (05:27)
--- NOTE | 2018-10-17 07:08 | NUR ---
Pt received resting in bed. Alert and oriented x3. Pt is NPO for Angiogram. Oriented to staff and surroundings. Encouraged to press call varela if help needed. Pt verbalized understanding of teaching. Will monitor
[2018-10-17] MEDS: INSULIN REGULAR, HUMAN 100 UNIT/1 ML 3ML VIAL SQ SCH ×4 (07:30→21:23)
[2018-10-17] MEDS: FUROSEMIDE INJ 10 MG/ML 4 ML VIAL IV SCH ×2 (08:46→18:28)
[2018-10-17] MEDS ORDERED: MIDAZOLAM HCL 2 MG/2 ML VIAL ONE (10:36)
[2018-10-17] MEDS ORDERED: IOPAMIDOL 300MG/ML 100 ML INFUS..BTL IV ONE (10:37)
[2018-10-17] MEDS ORDERED: HEPARIN SOD/SOD CHLORIDE 0 ML ONE (10:37)
[2018-10-17] MEDS ORDERED: FENTANYL CITRATE/PF 100MCG/2 ML INJ ONE (10:37)
[2018-10-17] MEDS ORDERED: SODIUM CHLORIDE 0.9% 1000ML 1,000 ML ONE (10:37)
[2018-10-17] MEDS ORDERED: LIDOCAINE HCL 1% LOCAL INJ 20 ML VIAL ONE (10:38)
--- NOTE | 2018-10-17 10:45 | NUR ---
Pt left for [facility] in laboratory technology teacher
[2018-10-17] MEDS ORDERED: LIDOCAINE HCL 2% LOCAL 20 ML VIAL ONE (10:47)
[2018-10-17] MEDS ORDERED: HEPARIN SOD/SOD CHLORIDE 2,000 ML ONE (10:47)
[2018-10-17] MEDS ORDERED: IOPAMIDOL 370 MG/ML 200 ML INFUS..BTL INJ ONE ×2 (10:47→11:31)
[2018-10-17] MEDS ORDERED: HYDRALAZINE HCL 20 MG/ML VIAL ONE (11:23)
--- NOTE | 2018-10-17 11:51 | NUR ---
Pt returned from [facility] via right groin. Emotional support given. Call varela within reach. Will monitor
[2018-10-17] MEDS: FAMOTIDINE 20 MG TAB PO SCH ×2 (13:27→18:28)
[2018-10-17] MEDS: HYDROCHLOROTHIAZIDE 25 MG TAB PO SCH (13:27)
[2018-10-17] MEDS: CARVEDILOL 12.5 MG TAB PO SCH ×2 (13:27→18:28)
[2018-10-17] MEDS: LOSARTAN POTASSIUM 100 MG TAB PO SCH (13:27)
[2018-10-17] MEDS: POTASSIUM CHLORIDE 20 MEQ TAB CR PO SCH ×2 (13:27→18:28)
[2018-10-17] MEDS: LORATADINE 10 MG TAB PO SCH (13:27)
--- NOTE | 2018-10-17 13:32 | Progress Note ---
DATE: 10/17/2018 SUBJECTIVE: The patient is feeling better. Denies any chest pain or shortness of breath. OBJECTIVE: VITAL SIGNS: Temperature is 96.8, heart rate is 70, respirations are 18, blood pressure is 138/65, oxygen saturation is 98% on room air. GENERAL: Well appearing, well built, no apparent distress. CARDIOVASCULAR: Regular rate and rhythm. LUNGS: Clear to auscultation. ABDOMEN: Soft, nontender, nondistended. EXTREMITIES: 1+ edema. MEDICATIONS: Cardiovascular medications reviewed. LABORATORY DATA: Reviewed. Hemoglobin 13.4. Creatinine is 0.87. IMPRESSION: 1. Coronary artery disease, status post coronary artery bypass graft surgery. 2. Acute systolic congestive heart failure. 3. Uncontrolled diabetes mellitus. 4. Hypertension. RECOMMENDATIONS: Coronary angiography and graft angiography were performed today. No intervention was needed. Continue aggressive medical management. Continue optimal medical therapy for his heart failure including losartan and carvedilol. The patient's left ventricular end-diastolic pressure was elevated still today, so we will continue intravenous Lasix for 1 more day. Philipp Shelley DO BM/MODL /[id number]
--- NOTE | 2018-10-17 14:38 | Operative Report ---
DATE OF PROCEDURE: 10/17/2018 SURGEON: Philipp Shelley DO PROCEDURES PERFORMED: 1. Conscious sedation, 30 minutes. 2. Selective coronary angiography x2. 3. Left heart catheterization. 4. Selective graft angiography x3. PREPROCEDURE DIAGNOSES: 1. Congestive heart failure. 2. Coronary artery disease, status post coronary artery bypass graft surgery. POSTPROCEDURE DIAGNOSES: 1. Congestive heart failure. 2. Coronary artery disease, status post coronary artery bypass graft surgery. ESTIMATED BLOOD LOSS: Less than 20 mL. SPECIMENS REMOVED: None. PROCEDURE IN DETAIL: After informed consent was obtained, the patient was brought to the cardiac catheterization laboratory in a fasting and nonsedated state. Bilateral groins were prepped and draped in the usual sterile fashion. A 2% lidocaine was infiltrated over the right anterior groin for local anesthesia. Using micropuncture needle, the right common femoral artery was accessed via modified Seldinger technique and a 5-Lao sheath was placed. Next, diagnostic coronary angiography and selective graft angiography was performed using a JL4 and JR4 catheters. The same JR catheter was used to enter the left ventricle and hemodynamic parameters were obtained. The patient tolerated the procedure well with no immediate complications, transported back to his room in stable condition. Hemostasis was achieved via Vascade device. PROCEDURE FINDINGS: 1. Left main coronary artery is patent with luminal irregularities. 2. The proximal LAD is patent and provides flow into a small 1st diagonal vessel. After the takeoff of the first diagonal, the LAD is 100% occluded. 3. Left circumflex coronary artery is a small vessel and provides flow into a 1st obtuse marginal vessel. The OM itself has a 70% stenosis. The caliber of this vessel is approximately 1.5 mm. Just after the takeoff of this OM, the circumflex is occluded. 4. Right coronary artery is a dominant vessel and provides the posterior descending coronary artery. The RCA itself has mild diffuse disease. 5. There is one saphenous vein graft anastomosed to the 2nd obtuse marginal vessel and is patent. 6. There is a saphenous vein graft attached to the 2nd diagonal branch with mild diffuse disease distally. The SVG itself is patent. 7. The left internal mammary artery is seen anastomosed to the mid LAD and is patent. 8. Left ventricular end-diastolic pressure is 38 mmHg with no aortic valve gradient present upon pullback. IMPRESSION: Coronary artery disease with patent grafts. RECOMMENDATIONS: Continue aggressive medical therapy. DO JOSEP Guajardo/EMMA /[id number]
--- NOTE | 2018-10-17 15:38 | NUR ---
CM SPOKE TO ERICA WITH [facility] REGARDING PATIENT PLAN OF CARE AND DISCHARGE PLAN. ERICA INFORMED OF PATIENT LACE SCORE OF 16 AND HISTORY OF CHF, DIABETES AND COPD. PATIENT NEEDS EDUCATION BUT MAY NOT BE A CANDIDATE FOR HOME HEALTH DUE TO NOT BEING HOME BOUND. CM TO FOLLOW UP WITH PATIENT PRIOR TO DISCHARGE AND GIVE HIM INSURANCE CM NAME AND NUMBER [employer] IF HE DOES NOT QUALIFY FOR HOME HEALTH. ERICA TO FOLLOW UP WITH COURT ONCE PATIENT IS DISCHARGED. ERICA WITH [facility]: [phone]
--- NOTE | 2018-10-17 15:42 | NUR ---
YOU HAVE A DESIGNATED SHAFT SINKER THAT HANDLES YOUR CASE THROUGH YOUR INSURANCE. BELOW IS HER NAME AND PHONE NUMBER SO YOU CAN CONTACT HER WHEN YOU HAVE QUESTIONS OR NEEDING RESOURCES WHEN AT HOME. ERICA RAMOS INSURANCE: [phone]
--- NOTE | 2018-10-17 19:31 | NUR ---
Pt resting comfortably in bed. Handoff given to oncoming nurse.
[2018-10-17] MEDS: SIMVASTATIN 40 MG TAB PO SCH (20:41)
[2018-10-17] MEDS: BASAGLAR SQ SCH (21:00)
[2018-10-18] VITALS: BP 137/65
[2018-10-18] MEDS: NITROGLYCERIN 2% OINT 1 GM PKT TOP SCH ×2 (00:41→06:44)
[2018-10-18 02:24] VITALS: BP 137/65
[2018-10-18 04:00] VITALS: BP 150/67
[2018-10-18] MEDS ORDERED: FUROSEMIDE40 MG PO (04:54)
[2018-10-18] MEDS ORDERED: COREG12.5 MG PO (04:54)
[2018-10-18] MEDS ORDERED: COZAAR100 MG PO (04:54)
[2018-10-18] MEDS ORDERED: KLOR-CON M2020 MEQ PO (04:54)
[2018-10-18] MEDS ORDERED: ASPIRIN325 MG PO (04:57)
--- NOTE | 2018-10-18 07:07 | NUR ---
pt alert resp even and unlabored at this time no distress noted, pt able to make needs known,no c/o pain when asked,pt call light in reach. will cont to monitor.
[2018-10-18 09:04] VITALS: BP 154/72
[2018-10-18] MEDS: FUROSEMIDE INJ 10 MG/ML 4 ML VIAL IV SCH (09:07)
[2018-10-18] MEDS: LORATADINE 10 MG TAB PO SCH (09:07)
[2018-10-18] MEDS: LOSARTAN POTASSIUM 100 MG TAB PO SCH (09:08)
[2018-10-18] MEDS: HYDROCHLOROTHIAZIDE 25 MG TAB PO SCH (09:08)
[2018-10-18] MEDS: CARVEDILOL 12.5 MG TAB PO SCH (09:08)
[2018-10-18] MEDS: POTASSIUM CHLORIDE 20 MEQ TAB CR PO SCH (09:08)
[2018-10-18] MEDS: FAMOTIDINE 20 MG TAB PO SCH (09:12)
--- NOTE | 2018-10-18 10:18 | Progress Note ---
DATE: 10/18/2018 Cardiology Progress Note SUBJECTIVE: Mr. Bay has no further chest pain. He feels much better since admission. PHYSICAL EXAMINATION: VITAL SIGNS: Heart rate 67, blood pressure 154/72, and O2 saturation 98%. CARDIOVASCULAR: Regular rhythm, S3 gallop, systolic murmur. LUNGS: Clear to auscultation bilaterally. TELEMETRY: Telemetry shows sinus rhythm. MEDICATIONS: Reviewed. DIAGNOSTIC DATA: Coronary angiography was reviewed. ASSESSMENT: 1. Coronary artery disease. 2. Acute systolic heart failure. RECOMMENDATIONS: Current medical therapy is appropriate. The patient is well compensated. He can be discharged home with close followup in the office. MD MAGGY Rodriguez/EMMA /[id number]
--- NOTE | 2018-10-18 10:31 | NUR ---
pt discharged home with family member, pt and family member where educated on his medication and new prescription, pt verbalized understanding. pt iv site removed cath tip intact, no swelling no redness to site.
--- NOTE | 2018-10-19 21:10 | Discharge Summary ---
ADMISSION DIAGNOSES: Hypertensive urgency, elevated BNP with no known congestive heart failure history, hyperlipidemia, uncontrolled type 2 diabetes, obesity. DISCHARGE DIAGNOSES: Hypertensive urgency, elevated BNP with no known congestive heart failure history, hyperlipidemia, uncontrolled type 2 diabetes, obesity, systolic congestive heart failure. HISTORY: The patient has a history of hypertension, hyperlipidemia, type 2 diabetes, CVA. 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 FAMILY HISTORY: Grandmother and aunt had diabetes. SOCIAL HISTORY: Occasional alcohol use. HOSPITAL COURSE: A 48-year-old male, complains of orthopnea, shortness of breath, dyspnea on exertion, bilateral lower extremity edema, dry cough, and chest congestion x3 days. He denies fever, productive cough, and sick contacts. His blood pressure was 230/122 in the ER. The patient says he forgot to take his home medications including his insulin, so his blood sugar was also 548 in the ER. On admission, the patient's home medicines were resumed. Due to the elevated BNP, an echo was ordered. The patient also resumed his home medications for diabetes. Chest x-ray on admission showed cardiomegaly with edema. BNP on admission was 572. The patient was started on Lasix. The echo came back with EF of around 35% to 40%. Cardiology was consulted for newly diagnosed CHF. The patient then had a heart catheterization on 10/17/2018, which showed coronary artery disease with patent grafts. Medical management will continue per Cardiology. The patient will now discharge home with aspirin, Coreg, Lasix, losartan, potassium, and his home medicines. He was instructed to keep better control of his diabetes as his A1c was elevated. He was also instructed to monitor his fluid intake to manage his CHF. He will follow up with primary care in 1 to 2 weeks and Cardiology as discussed. The patient understands discharge instructions and agrees to plan. Vital signs stable, the patient afebrile. Dictated by Delia Flores NP MD CLEOPATRA Woodward/EMMA /[id number]
== END 2018-10-18 10:25 | disposition home or self-care (01) | DRG 286 ==
LOC: ER 21:24 → ERHOLD 22:56 → MED/SURG 10-14 00:05
PROVIDERS: ADMIT Internal Medicine; ATTEND Internal Medicine
PROC: 4A023N7 Measurement of Cardiac Sampling and Pressure, Left Heart, Percutaneous Approach (ICD-10-PCS; principal; 2018-10-17)
PROC: B2111ZZ Fluoroscopy of Multiple Coronary Arteries using Low Osmolar Contrast (ICD-10-PCS; 2018-10-17)
PROC: B2131ZZ Fluoroscopy of Multiple Coronary Artery Bypass Grafts using Low Osmolar Contrast (ICD-10-PCS; 2018-10-17)
PROC: B2181ZZ Fluoroscopy of Left Internal Mammary Bypass Graft using Low Osmolar Contrast (ICD-10-PCS; 2018-10-17)
DX: I11.0 Hypertensive heart disease with heart failure (principal); I50.21 Acute systolic (congestive) heart failure; E78.5 Hyperlipidemia, unspecified; E11.65 Type 2 diabetes mellitus with hyperglycemia; E66.9 Obesity, unspecified; Z68.32 Body mass index [BMI] 32.0-32.9, adult; I25.10 Atherosclerotic heart disease of native coronary artery without angina pectoris; I25.82 Chronic total occlusion of coronary artery; Z95.1 Presence of aortocoronary bypass graft; Z86.73 Personal history of transient ischemic attack (TIA), and cerebral infarction without residual deficits; Z89.421 Acquired absence of other right toe(s); Z83.3 Family history of diabetes mellitus; T38.3X6A Underdosing of insulin and oral hypoglycemic [antidiabetic] drugs, initial encounter; Z91.138 Patient's unintentional underdosing of medication regimen for other reason; Z79.82 Long term (current) use of aspirin; Z79.4 Long term (current) use of insulin
CPT/HCPCS: 36415; 71045; 80048; 80053; 80061; 82550; 82553; 82948; 83036; 83735; 83880; 84439; 84443; 84484; 85025; 93005; 93306; 93459; 99285; C1760; C1769; J0360; J1817; J1940; J2001; J2250; J3010; J7030; Q9967

== ENCOUNTER 2019-06-07 20:55 | Emergency (ER) | payer OTHER ==
[~2019-06-07] VITALS: Ht 177.8 cm; Wt 108.9 kg
[~2019-06-07 20:55] MED LIST: AMLODIPINE BESY10 MG PO; ASPIRIN325 MG PO; COREG12.5 MG PO; COZAAR100 MG PO; FUROSEMIDE40 MG PO; HYDROCHLOROTHIA25 MG; KLOR-CON M2020 MEQ PO; NOVOLOG100 UNIT/1 SQ; SIMVASTATIN40 MG PO; basaglar SQ
[2019-06-07 21:26] LABS: BASOPHILS % 0.5 % (0.0-1.0); EOSINOPHILS # (AUTO) 0.2 (0.0-0.4); EOSINOPHILS % 2.5 % (0.0-6.0); HEMATOCRIT 47.4 % (38.2-49.6); HEMOGLOBIN 14.9 g/dL (14.0-18.0); LYMPHOCYTES # (AUTO) 1.3 (1.0-3.2); LYMPHOCYTES % 22.1 % (18.0-39.1); MEAN CORPUSCULAR HGB CONC 31.4 g/dL (31-35); MEAN CORPUSCULAR VOLUME 79.5 fL (81-99); MONOCYTES # (AUTO) 0.3 (0.2-0.8); MONOCYTES % 5.6 % (4.4-11.3); NEUTROPHILS # (AUTO) 4.2 (2.1-6.9); NEUTROPHILS % 69.1 % (38.7-80.0); PLATELET COUNT 191 x10e3/uL (140-360); RED BLOOD COUNT 5.96 x10e6/uL (4.3-5.7); RED CELL DISTRIBUTION WIDTH 14.4 % (11.7-14.4)
[2019-06-07 21:42] LABS: ALBUMIN 3.7 g/dL (3.5-5.0); ALBUMIN/GLOBULIN RATIO 0.9 (0.8-2.0); ANION GAP 13.7 mmol/L (8-16); CALCIUM 10.1 mg/dL (8.4-10.2); CREATININE, SERUM 1.32 mg/dL (0.72-1.25); POTASSIUM 4.7 mmol/L (3.5-5.1)
[2019-06-07 21:48] LABS: CREATINE KINASE MB 2.6 ng/mL (0-5.0)
[2019-06-07] MEDS ORDERED: SODIUM CHLORIDE 0.9% 1000ML 1,000 ML ONE (22:09)
[2019-06-07] MEDS ORDERED: INSULIN REGULAR, HUMAN 100 UNIT/1 ML 3ML VIAL ONE (22:12)
[2019-06-07] MEDS ORDERED: SODIUM CHLORIDE 0.9% 100 ML ONE (22:12)
[2019-06-07] MEDS ORDERED: IOPAMIDOL 370 MG/ML 200 ML INFUS..BTL INJ ONE (22:12)
[2019-06-07] MEDS ORDERED: INSULIN REGULAR, HUMAN 100 UNIT/1 ML 3ML VIAL IV ONE (22:15)
[2019-06-07] MEDS ORDERED: SODIUM CHLORIDE 0.9% 1000ML 1,000 ML IV SCH (22:15)
--- NOTE | 2019-06-07 22:39 | Diagnostic Imaging Report ---
EXAMINATION: Head CT HISTORY: Lightheadedness, weakness, history of prior CVA. COMPARISON: None. TECHNIQUE: Multidetector axial images were obtained without contrast from the foramen magnum to the vertex . The images were reconstructed using brain and bone algorithms. Thin section brain images were reformatted into coronal and sagittal planes. Image quality: Motion/streaking artifact limits the evaluation of the skull base and posterior cranial fossa. Dose modulation, iterative reconstruction, and/or weight based adjustment of the mA/kV was utilized to reduce the radiation dose to as low as reasonably achievable. FINDINGS: Parenchyma: 1. Cortico-subcortical encephalomalacia in the left medial occipital lobe along the lingual gyrus, right inferior cerebellum and right medial frontal lobe/genu of the corpus callosum, consistent with chronic infarcts. Tiny chronic lacunar infarct in the left putamen, right superior cerebellum and left paramedian cesar. 2. Few scattered white matter hypodensities, most likely nonspecific chronic microvascular ischemic changes. 3. No mass or hemorrhage. No CT evidence of acute territorial vascular insult. Extra-axial spaces:No abnormal density. No extra-axial fluid collections Brain volume: Normal for age. Ventricles: No hydrocephalus or displacement. Arteries: No density suggestive of thrombus. Dural sinuses: No abnormal density. Foramen magnum: No mass, Chiari malformation, or basilar invagination. Sella: No obvious mass. Paranasal/mastoid sinuses: Imaged portions unremarkable. Skull/Scalp: No lytic or blastic lesions. No fractures. Right frontoparietal scalp swelling. IMPRESSION: 1. No acute intracranial abnormalities, particularly no hemorrhage or cortical infarcts. 2. Multiple chronic infarcts as detailed above. Signed by: Dr. Leah Richards M.D. on 06/07/2019 10:36 PM
--- NOTE | 2019-06-08 00:37 | Diagnostic Imaging Report ---
EXAMINATION: CT angiogram of the [place] and neck with contrast CLINICAL HISTORY: Left-sided numbness, lightheadedness, weakness, mini stroke. COMPARISON: Head CT performed earlier on the same day TECHNIQUE: The head and neck was scanned utilizing a multidetector helical scanner from the thoracic inlet to the vertex after the I.V contrast administration of 100 mL of Isovue-370. Multiplanar sagittal and coronal reconstructions were performed as well. For optimization of of anatomic evaluation, multi-planar reconstructions, maximum intensity projections, and advanced 3D off-line post-processing was obtained and performed on a dedicated stand-alone workstation under the direct supervision of the interpreting physician. Dose modulation, iterative reconstruction, and/or weight based adjustment of the mA/kV was utilized to reduce the radiation dose to as low as reasonably achievable. CT ANGIOGRAM OF THE [place] FINDINGS: Atherosclerotic calcification of the bilateral cavernous ICAs with mild to moderate narrowing. The right intracranial vertebral artery is not visualized, likely related to chronic occlusion. The right PICA is not visualized either. Atherosclerotic calcification of the left intracranial vertebral artery with moderate stenoses near the foramen magnum level. Otherwise the internal carotid artery segments as well as the middle cerebral and anterior cerebral arteries are normal in caliber. The vertebro-basilar circulation is otherwise normal. No vascular malformation or aneurysmal dilatation is seen. The draining venous structures are normal and patent. Anatomic variation: Anterior Communicating Artery: Patent. Posterior Communicating Arteries: Not well visualized. Vertebral arteries: The left is dominant and patent. The right vertebral artery is occluded. CT ANGIOGRAM OF THE NECK FINDINGS: If present, stenosis of the carotid bulbs is measured based on NASCET criteria i.e area of maximum stenosis compared to the cervical ICA distal to the bulb. Nonspecific partially visualized linear hyperdensities, probable contrast material anterior to the aortic arch may correspond to artifact versus draining veins, less likely contrast extravasation. Atherosclerotic calcification of the origin of the left vertebral artery without significant stenoses. Otherwise the origin of the vessels is patent bilaterally. Right Carotid Artery: Soft and calcified atherosclerotic plaque at the carotid bifurcation without associated stenoses. Otherwise the common carotid, internal and external carotid arteries at the level of the neck are normal in caliber, and patent, no evidence of stenoses. Left carotid artery: Soft and calcified plaque at the carotid bifurcation without significant stenoses. Otherwise the common carotid, internal and external carotid arteries at the level of the neck are normal in caliber, and patent, no evidence of stenoses. Vertebral Arteries: Complete occlusion of the right vertebral artery. The left vertebral artery is patent and normal in caliber in the neck. IMPRESSION: 1. 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 2. Prominent atherosclerosis of the left intracranial vertebral artery with moderate stenosis. 3. Otherwise the carotid arteries are patent bilaterally and the head and neck. 4. Partially visualized nonspecific linear hyperdensities anterior to the aortic arch as detailed above, if clinically indicated consider chest CT with contrast for further evaluation. Signed by: Dr. Leah Richards M.D. on 06/08/2019 12:34 AM
[2019-06-08] MEDS ORDERED: HYDRALAZINE HCL 20 MG/ML VIAL IV STA (01:00)
[2019-06-08] MEDS ORDERED: HYDRALAZINE HCL 20 MG/ML VIAL ONE (01:05)
== END 2019-06-08 01:25 | disposition home or self-care (01) ==
LOC: ER 20:55
DX: R42 Dizziness and giddiness (principal); R53.1 Weakness; I10 Essential (primary) hypertension; E11.9 Type 2 diabetes mellitus without complications; I25.10 Atherosclerotic heart disease of native coronary artery without angina pectoris; E78.5 Hyperlipidemia, unspecified; Z95.1 Presence of aortocoronary bypass graft; Z86.73 Personal history of transient ischemic attack (TIA), and cerebral infarction without residual deficits; Z79.82 Long term (current) use of aspirin; Z79.4 Long term (current) use of insulin
CPT/HCPCS: 36415; 70450; 70496; 70498; 80053; 82550; 82553; 84484; 85025; 93005; 99284; J0360; J1817; J7030; J7050; Q9967

== ENCOUNTER 2019-09-18 05:30 | Inpatient (IN) | payer OTHER ==
[~2019-09-18] VITALS: Ht 177.8 cm; Wt 113.4 kg
--- OUTSIDE RECORDS SUMMARY | 2019-09-18 05:32 | XMS REPORT | Clinical Summary ---
Author Author [facility] Address Unknown Phone Unavailable Care Team Providers Care Epidemiology Internship Name Role Phone PCP Unavailable Allergies No [...] mouth daily. Active Problems Not on file Social History Date Tobacco Use Types Packs/Day Years Used Never Smoker Smokeless Tobacco: Never Used Alcohol Use Drinks/Week oz/Week Comments Yes 2 Cans of 1.2 Occasional beer Alcohol Habits Answer Date Recorded How often do you have a drink containing alcohol? Never 09/08/2018 How many drinks containing alcohol do you have on No t asked a typical day when you are drinking? How often do you have six or more drinks on one Not asked occasion? Sex Assigned at Date Recorded Not on file Industry Job Start Date Occupation Not on file Not on file Not on file Travel End Travel History Travel Start No recent travel history available. Last Filed Vital Signs Not on file Plan of Treatment Not on file Results Not on fileafter 09/17/2018 Insurance Payer Benefit Subscriber ID Type Phone Address Plan / Group [employer] - [employer] C[employer] xxxxxxxxxx HMO/POS [place] [id number]
--- OUTSIDE RECORDS SUMMARY | 2019-09-18 05:33 | XMS REPORT ---
Author Author [facility] t Organization [facility] Address [address] [place] [address] Phone Unavailable Care Team Providers Care Administrative Services Director Name Role Phone Shamir MOSELEY DO PCP MARY CLARKE Attphys Unavailable Jerod VILLALTA Attphys Unavailable ANGEL KIDD Attphys Unavailable Payers Payer Name Policy Type Policy Number Effective Date Expiration Date Damion Patterson [facility] [id number] 2011 00:00:00 [facility] Problems Condition Name Condition Details Condition Category Status Onset Date Resolution Date Last Treatment Date Treating Clinician Comments Source Congestive heart failure CHF (congestive heart failure) Problem Active [facility] Dyspnea Dyspnea Problem Active [facility] Allergies, Adverse Reactions, Alerts This patient has no known allergies or adverse reactions. Medications Ordered Medication Name Filled Medication Name Start Date Stop Da te Current Medication? Ordering Clinician Indication Dosage Frequency Signature (SIG) Comments Components Source Aspirin 325 Mg Tablet Aspirin 325 Mg Tablet 2018-10-18 00:00:00 Yes Delia M Mark Carpenter Mold 325 Daily [facility] Carvedilol (Coreg) 12.5 Mg Tab Carvedilol (Coreg) 12.5 Mg Ta b 2018-10-18 00:00:00 Yes Delia M Hughson Carpenter Mold 12.5 Twice A Day [facility] Furosemide 40 Mg Tablet Furosemide 40 Mg Tablet 2018-10-18 00:00:00 Yes Delia M Mark Carpenter Mold 40 Twice A Day [facility] Losartan Potassium (Cozaar) 100 Mg Tablet Losartan Pot assium (Cozaar) 100 Mg Tablet 2018-10-18 00:00:00 Yes Delia M Hughson Carpenter Mold 100 Daily [facility] Potassium Chloride (Klor-Con M20) 20 Meq Tabcr Potassi um Chloride (Klor-Con M20) 20 Meq Tabcr 2018-10-18 00:00:00 Yes Delia Khan Mark Carpenter Mold 20 Twice A Day [facility] Basaglar Basaglar Yes 100 Bedtime [facility] Hydrochlorothiazide 25 Mg Tablet Hydrochlorothiazide 25 Mg Tablet Yes 25 Daily [facility] Insulin Aspart (Novolog) 100 Unit/1 Ml Cartridge Insul in Aspart (Novolog) 100 Unit/1 Ml Cartridge Yes 20 Daily [facility] Simvastatin 40 Mg Tablet Simvastatin 40 Mg Tablet Yes 40 Today At 9:00PM [facility] Amlodipine Besylate 10 Mg Tablet, 10 Mg Oral Amlodipin e Besylate 10 Mg Tablet, 10 Mg Oral 2018-10-18 00:00:00 No 10 Daily [facility] Procedures Procedure Date / Time Performed Performing Clinician [facility] e Computed tomography of brain without radiopaque contrast 00:00:00 VINCE [facility] Computed tomography angiography of brain 2019-06-07 00:00:00 MARILYN BLACKMAN [facility] CT angiography of neck 2019-06-07 00:00:00 [facility] MEASURE OF CARDIAC SAMPL & PRESSURE, L HEART, PERC APPROACH 2018-10-17 00:00:00 SHANTEL MAC [facility] FLUOROSCOPY OF MULT COR ART USING L OSM CONTRAST 2018-10-17 00:00:00 SHANTEL MAC [facility] FLUOROSCOPY OF MULT COR A GRAFT USING L OSM CONTRAST 2018-10 00:00:00 SHANTEL MAC [facility] FLUOROSCOPY OF L INT MAMM GRAFT USING L OSM CONTRAST 2018-10 00:00:00 ESTEFANIA [facility] Encounters Start Date/Time End Date/Time Encounter Type Admission Type [facility] Facility Care Department Encounter ID Source 2019-06-07 20:55:00 2019-06-08 01:25:00 Departed Emergency Room 1 MARY CLARKE [facility] [id number] [facility] 2018-10-13 22:56:00 2018-10-18 10:25:00 Discharged Inpatient 1 RIRI VILLALTA [facility] [id number] [facility] Results Test Description Test Time Test Comments Results Result Comments Source CTA NECK 2019-06-08 00:17:00 [facility] [address] [address] Patient Name: SHOAIB JOHANSEN MR #: [id number] : 1970 Age/Sex: 48/M Req #: [id number] Adm Physician: Ordered by: MARY CLARKE DO Report #: [id number] Location: ER Room/Bed: Procedure: [id number] CT/CTA NECK Exam Date: Exam Time: REPORT STATUS: Signed EXAMINATION: CT angiogram of the pilot station of [place] and neck with contrast CLINICAL HISTORY: Left-sided numbness, lightheadedness, weakness, mini stroke. COMPARISON: Head CT performed earlier on the same day TECHNIQUE: The head and neck was scanned utilizing a multidetector helical scanner from the thoracic inlet to the vertex after the I.V contrast administration of 100 mL of Isovue-370. Multiplanar sagittal and coronal reconstructions were performed as well. For optimization of of anatomic evaluation, multi-planar reconstructions, maximum intensity projections, and advanced 3D off-line post-processing was obtained and performed on a dedicated stand-alone workstation under the direct supervision of the interpreting physician. Dose modulation, iterative reconstruction, and/or weight based adjustment of the mA/kV was utilized to reduce the radiation dose to as low as reasonably achievable. CT ANGIOGRAM OF [place] FINDINGS: Atherosclerotic calcification of the bilateral cavernous ICAs with mild to moderate narrowing. The right intracranial vertebral artery is not visualized, likely related to chronic occlusion. The right PICA is not visualized either. Atherosclerotic calcification of the left intracranial vertebral artery with moderate stenoses near the foramen magnum level. Otherwise the internal carotid artery segments as well as the middle cerebral and anterior cerebral arteries are normal in caliber. The vertebro-basilar circulation is otherwise normal. No vascular malformation or aneurysmal dilatation is seen. The draining venous structures are normal and patent. Anatomic variation: Anterior Communicating Artery: Patent. Posterior Communicating Arteries: Not well visualized. Vertebral arteries: The left is dominant and patent. The right vertebral artery is occluded. CT ANGIOGRAM OF THE NECK FINDINGS: If present, stenosis of the carotid bulbs is measured based on NASCET criteria i.e area of maximum stenosis compared to the cervical ICA distal to the bulb. Nonspecific partially visualized linear hyperdensities, probable contrast material anterior to the aortic arch may correspond to artifact versus draining veins, less likely contrast extravasati on. Atherosclerotic calcification of the origin of the left vertebral artery without significant stenoses. Otherwise the origin of the vessels is patent bilaterally. Right Carotid Artery: Soft and calcified atherosclerotic plaque at the carotid bifurcation without associated stenoses. Otherwise the common carotid, internal and external carotid arteries at the level of the neck are normal in caliber, and patent, no evidence of stenoses. Left carotid artery: Soft and calcified plaque at the carotid bifurcation without significant stenoses. Otherwise the common carotid, internal and external carotid arteries at the level of the neck are normal in caliber, and patent, no evidence of stenoses. Vertebral Arteries: Complete occlusion of the right vertebral artery. The left vertebral artery is patent and normal in caliber in the neck. IMPRESSION: 1. 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 2. Prominent atherosclerosis of the left intracranial vertebral artery with moderate stenosis. 3. Otherwise the carotid arteries are patent bilaterally and the head and neck. 4. Partially visualized nonspecific linear hyperdensities anterior to the aortic arch as detailed above, if clinically indicated consider chest CT with contrast for further evaluation. Signed by: Dr. Juan Richards M.D. on 06/08/2019 12:34 AM Dictated By: JUAN RICHARDS MD Transcribed By: JUAN on 06/08/1934 COPY TO: MARY CLARKE DO CTA BRAIN 2019-06-08 00:17:[address] [address] Patient Name: SHOAIB JOHANSEN MR #: [id number] : 1970 Age/Sex: 48/M Req #: [id number] Adm Physician: Ordered by: MARY CLARKE DO Report #: [id number] Location: ER Room/Bed: Procedure: [id number] CT/CTA BRAIN Exam Date: Exam Time: REPORT STATUS: Signed EXAMINATION: CT angiogram of the pilot station of [place] and neck with contrast CLINICAL HISTORY: Left-sided numbness, lightheadedness, weakness, mini stroke. COMPARISON: Head CT performed earlier on the same day TECHNIQUE: The head and neck was scanned utilizing a multidetector helical scanner from the thoracic inlet to the vertex after the I.V contrast administration of 100 mL of Isovue-370. Multiplanar sagittal and coronal reconstructions were performed as well. For optimization of of anatomic evaluation, multi-planar reconstructions, maximum intensity projections, and advanced 3D off-line post-processing was obtained and performed on a dedicated stand-alone workstation under the direct supervision of the interpreting physician. Dose modulation, iterative reconstruction, and/or weight based adjustment of the mA/kV was utilized to reduce the radiation dose to as low as reasonably achievable. CT ANGIOGRAM OF THE [place] FINDINGS: Atherosclerotic calcification of the bilateral cavernous ICAs with mild to moderate narrowing. The right intracranial vertebral artery is not visualized, likely related to chronic occlusion. The right PICA is not visualized either. Atherosclerotic calcification of the left intracranial vertebral artery with moderate stenoses near the foramen magnum level. Otherwise the internal carotid artery segments as well as the middle cerebral and anterior cerebral arteries are normal in caliber. The vertebro-basilar circulation is otherwise normal. No vascular malformation or aneurysmal dilatation is seen. The draining venous structures are normal and patent. Anatomic variation: Anterior Communicating Artery: Patent. Posterior Communicating Arteries: Not well visualized. Vertebral arteries: The left is dominant and patent. The right vertebral artery is occluded. CT ANGIOGRAM OF THE NECK FINDINGS: If present, stenosis of the carotid bulbs is measured based on NASCET criteria i.e area of maximum stenosis compared to the cervical ICA distal to the bulb. Nonspecific partially visualized linear hyperdensities, probable contrast material anterior to the aortic arch may correspond to artifact versus draining veins, less likely contrast extravasat ion. Atherosclerotic calcification of the origin of the left vertebral artery without significant stenoses. Otherwise the origin of the vessels is patent bilaterally. Right Carotid Artery: Soft and calcified atherosclerotic plaque at the carotid bifurcation without associated stenoses. Otherwise the common carotid, internal and external carotid arteries at the level of the neck are normal in caliber, and patent, no evidence of stenoses. Left carotid artery: Soft and calcified plaque at the carotid bifurcation without significant stenoses. Otherwise the common carotid, internal and external carotid arteries at the level of the neck are normal in caliber, and patent, no evidence of stenoses. Vertebral Arteries: Complete occlusion of the right vertebral artery. The left vertebral artery is patent and normal in caliber in the neck. IMPRESSION: 1. 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 2. Prominent atherosclerosis of the left intracranial vertebral artery with moderate stenosis. 3. Otherwise the carotid arteries are patent bilaterally and the head and neck. 4. Partially visualized nonspecific linear hyperdensities anterior to the aortic arch as detailed above, if clinically indicated consider chest CT with contrast for further evaluation. Signed by: Dr. Juan Richards M.D. on 06/08/2019 12:34 AM Dictated By: JUAN RICHARDS MD Transcribed By: JUAN on 06/08/1934 COPY TO: MARY CLARKE DO CT BRAIN WO 2019-06-07 22:26:[address] [address] Patient Name: SHOAIB JOHANSEN MR #: [id number] : 1970 Age/Sex: 48/M Req #: [id number] [facility] Physician: Ordered by: MARY CLARKE DO Report #: [id number] Location: Room/Bed: Procedure: [id number] CT/CT BRAIN WO Exam Date: 06/07/19 Exam Time: 2135 REPORT STATUS: Signed EXAMINATION: Head CT HISTORY: Lightheadedness, weakness, history of prior CVA. COMPARISON: None. TECHNIQUE: Multidetector axial images were obtained without contrast from the foramen magnum to the vertex . The images were reconstructed using brain and bone algorithms. Thin section brain images were reformatted into coronal and sagittal planes. Image quality: Motion/streaking artifact limits the evaluation of the skull base and posterior cranial fossa. Dose modulation, iterative reconstruction, and/or weight based adjustment of the mA/kV was utilized to reduce the radiation dose to as low as reasonably achievable. FINDINGS: Parenchyma: 1. Cortico-subcortical encephalomalacia in the left medial occipital lobe along the lingual gyrus, right inferior cerebellum and right medial frontal lobe/genu of the corpus callosum, consistent with chronic infarcts. Tiny chronic lacunar infarct in the left putamen, right superior cerebellum and left paramedian cesar. 2. Few scattered white matter hypodensities, most likely nonspecific chronic microvascular ischemic changes. 3. No mass or hemorrhage. No CT evidence of acute territorial vascular insult. Extra-axial spaces:No abnormal density. No extra-axial fluid collections Brain volume: Normal for age. Ventricles: No hydrocephalus or displacement. Arteries: No density suggestive of thrombus. Dural sinuses: No abnormal density. Foramen magnum: No mass, Chiari malformation, or basilar invagination. Sella: No obvious mass. Paranasal/mastoid sinuses: Imaged portions unremarkable. Skull/Scalp: No lytic or blastic lesions. No fractures. Right frontoparietal scalp swelling. IMPRESSION: 1. No acute intracranial abnormalities, particularly no hemorrhage or cortical infarcts. 2. Multiple chronic infarcts as detailed above. Signed by: Dr. Juan Richards M.D. on 06/07/2019 10:36 PM Dictated By: JUAN RICHARDS MD 35 Transcribed By: JUAN on 06/07/192235 COPY TO: MARY CLARKE DO Creatine Kinase MB 2019-06-07 21:49:00 Test Item Creatine Kinase MB (test code = 99116-8) 2.60 0-5.0 [facility]roponin [id number] 21:49:00* Test Item Value Reference Range Interpretation Comments Troponin I (test code = XBY7022) 0.007 0-0.300 [facility] Yhbst3449-04-18 21:47:00* Test Item Value Reference Range Interpretation Comments Sodium Level (test code = 2951-2) 136 136-145 [facility]hamPotassium Sxmkb1829-85-52 21:47:00* Test Item Value Reference Range Interpretation Comments Potassium Level (test code = 2823-3) 4.7 3.5-5.1 [facility]hamChloride Husap2229-20-85 21:47:00* Test Item Value Reference Range Interpretation Comments Chloride Level (test code = 2075-0) 96 98-107 L [facility]hamCarbon Dioxide Dqfad0844-12-48 21:47:00* Test Item Value Reference Range Interpretation Comments Carbon Dioxide Level (test code = 2028-9) 31 22-29 H [facility]hamAnion Dph7673-59-81 21:47:00* Test Item Value Reference Range Interpretation Comments Anion Gap (test code = 21500-6) 13.7 8-16 [facility]hamBlood Urea Rrolewth6174-30-30 21:47:00* Test Item Value Reference Range Interpretation Comments Blood Urea Nitrogen (test code = 3094-0) 15 7-26 [facility]hamCreatinine2020-02-19 21:47:00* Test Item Value Reference Range Interpretation Comments Creatinine (test code = 2160-0) 1.32 0.72-1.25 H [facility]hamBUN/Creatinine Zhvri6302-04-28 21:47:00* Test Item Value Reference Range Interpretation Comments BUN/Creatinine Ratio (test code = 3097-3) 11 6-25 [facility] BrenhamEstimat Glomerular Filtration Rate 2019-06-07 21:47:00* Test Item Value Reference Range Interpretation Comments Estimat Glomerular Filtration Rate (test code = 818548103) 58 >60 L Ranges were taken from the National Kidney Disease Education Program and the [facility] literature.Reference ranges:60 or greater: Tiwzip15-81 ( for 3 consecutive months): Chronic kidney disease 15 or less: Kidney failureBaylor Scott & White Medical Center – BrenhamGlucose Qabms8740-17-31 21:47:00* Test Item Value Reference Range Interpretation Comments Glucose Level (test code = WMN5767) 472 74118 Results repeated and called to DAIN VELARDE at 2146 on 06/07/19 by Cliff ruvalcaba. Read back and verified.[facility]hamCalcium Nzbzc4779-55-09 21:47:00* Test Item Value Reference Range Interpretation Comments Calcium Level (test code = 69661-6) 10.1 8.4-10.2 [facility] BrenhamTotal Buyuwfsxh3687-87-95 21:47:00* Test Item Value Reference Range Interpretation Comments Total Bilirubin (test code = 1975-2) 0.6 0.2-1.2 [facility] BrenhamAspartate Amino Transf (AST/SGOT) 2019-06-07 21:47:00* Test Item Value Reference Range Interpretation Comments Aspartate Amino Transf (AST/SGOT) (test code = Aspartate Amino Transf (AST/SGOT)) 17 5-34 [facility]hamAlanine Aminotransferase (ALT/SGPT) 2019-06-07 21:47:00* Test Item Value Reference Range Interpretation Comments Alanine Aminotransferase (ALT/SGPT) (test code = 1742-6) 23 0-55 [facility] BrenhamTotal Cglbvow7631-03-00 21:47:00* Test Item Value Reference Range Interpretation Comments Total Protein (test code = 2885-2) 8.0 6.5-8.1 [facility] BrenhamAlbumin2020-02-19 21:47:00* Test Item Value Reference Range Interpretation Comments Albumin (test code = 1751-7) 3.7 3.5-5.0 [facility]hamGlobulin2020-02-19 21:47:00* Test Item Value Reference Range Interpretation Comments Globulin (test code = 41987-3) 4.3 2.3-3.5 H [facility] BrenhamAlbumin/Globulin Kqzcn0397-01-48 21:47:00 * Test Item Value Reference Range Interpretation Comments Albumin/Globulin Ratio (test code = 1759-0) 0.9 0.8-2.0 [facility]hamAlkaline Dxfqnxxdmmm5519-27-57 21:47:00* Test Item Value Reference Range Interpretation Comments Alkaline Phosphatase (test code = 6768-6) 90 40-150 [facility]hamCreatine Ssnfjc6813-06-41 21:47:00* Test Item Value Reference Range Interpretation Comments Creatine Kinase (test code = 2157-6) 112 30-200 [facility] BrenhamWhite Blood Dmvju8292-58-15 21:26:00* Test Item Value Reference Range Interpretation Comments White Blood Count (test code = 6690-2) 6.03 4.8-10.8 [facility]hamRed Blood Pnoqn0356-14-67 21:26:00* Test Item Value Reference Range Interpretation Comments Red Blood Count (test code = 789-8) 5.96 4.3-5.7 H [facility]hamHemoglobin2020-02-19 21:26:00* Test Item Value Reference Range Interpretation Comments Hemoglobin (test code = 00516-9) 14.9 14.0-18.0 [facility]hamHematocrit2020-02-19 21:26:00* Test Item Value Reference Range Interpretation Comments Hematocrit (test code = 4544-3) 47.4 38.2-49.6 [facility] BrenhamMean Corpuscular Fhtxfq3201-98-28 21:26:00* Test Item Value Reference Range Interpretation Comments Mean Corpuscular Volume (test code = 787-2) 79.5 81-99 L [facility] BrenhamMean Corpuscular Dcmtezaikw4195-44-58 21:26:00* Test Item Value Reference Range Interpretation Comments Mean Corpuscular Hemoglobin (test code = 785-6) 25.0 28-32 L [facility] BrenhamMean Corpuscular Hemoglobin Concent 2019-06-07 21:26:00* Test Item Value Reference Range Interpretation Comments Mean Corpuscular Hemoglobin Concent (test code = 786-4) 31.4 31-35 [facility] BrenhamRed Cell Distribution Fszsp0012-67-48 21:26:00* Test Item Value Reference Range Interpretation Comments Red Cell Distribution Width (test code = 60202-1) 14.4 11.7 -14.4 [facility] BrenhamPlatelet Bxlgf4596-94-45 21:26:00* Test Item Value Reference Range Interpretation Comments Platelet Count (test code = 777-3) 191 140-360 [facility]hamNeutrophils (%) (Auto)2019-06-07 21:26:00 * Test Item Value Reference Range Interpretation Comments Neutrophils (%) (Auto) (test code = 40969-9) 69.1 38.7-80.0 [facility]hamLymphocytes (%) (Auto)2019-06-07 21:26:00 * Test Item Value Reference Range Interpretation Comments Lymphocytes (%) (Auto) (test code = 736-9) 22.1 18.0-39.1 [facility]hamMonocytes (%) (Auto)2019-06-07 21:26:00* Test Item Value Reference Range Interpretation Comments Monocytes (%) (Auto) (test code = 5905-5) 5.6 4.4-11.3 [facility]hamEosinophils (%) (Auto)2019-06-07 21:26:00 * Test Item Value Reference Range Interpretation Comments Eosinophils (%) (Auto) (test code = 713-8) 2.5 0.0-6.0 [facility]hamBasophils (%) (Auto)2019-06-07 21:26:00* Test Item Value Reference Range Interpretation Comments Basophils (%) (Auto) (test code = 706-2) 0.5 0.0-1.0 [facility] BrenhamIM GRANULOCYTES %2019-06-07 21:26:00* Test Item Value Reference Range Interpretation Comments IM GRANULOCYTES % (test code = IM GRANULOCYTES %) 0.2 0.0- 1.0 [facility]hamNeutrophils # (Auto)2019-06-07 21:26:00* Test Item Value Reference Range Interpretation Comments Neutrophils # (Auto) (test code = 751-8) 4.2 2.1-6.9 [facility]hamLymphocytes # (Auto)2019-06-07 21:26:00* Test Item Value Reference Range Interpretation Comments Lymphocytes # (Auto) (test code = 16949-1) 1.3 1.0-3.2 [facility]hamMonocytes # (Auto)2019-06-07 21:26:00* Test Item Value Reference Range Interpretation Comments Monocytes # (Auto) (test code = 742-7) 0.3 0.2-0.8 [facility]hamEosinophils # (Auto)2019-06-07 21:26:00* Test Item Value Reference Range Interpretation Comments Eosinophils # (Auto) (test code = 711-2) 0.2 0.0-0.4 [facility]hamBasophils # (Auto)2019-06-07 21:26:00* Test Item Value Reference Range Interpretation Comments Basophils # (Auto) (test code = 704-7) 0.0 0.0-0.1 [facility] BrenhamAbsolute Immature Granulocyte (auto 2019-06-07 21:26:00* Test Item Value Reference Range Interpretation Comments Absolute Immature Granulocyte (auto (audra t code = Absolute Immature Granulocyte (auto) 0.01 0-0.1 [facility] BrenhamBedside Auysnen4698-70-15 08:32:00* Test Item Value Reference Range Interpretation Comments Bedside Glucose (test code = 38053-3) 161 70-120 H Meter ID: [id number] Scott & [facility] Glucose 2018-10-18 08:32:00* Test Item Value Reference Range Interpretation Comments Bedside Glucose (test code = 35641-0) 161 70-120 H Meter ID: [id number] Scott & White Medical Center – BrenhamB-Type Natriuretic Rktdxns2070-30-68 04:49:00* Test Item Value Reference Range Interpretation Comments B-Type Natriuretic Peptide (test code = 22414-2) 178.5 0-100 H [facility] BrenhamB-Type Natriuretic Zhqxotl4312-88-24 04:49:00* Test Item Value Reference Range Interpretation Comments B-Type Natriuretic Peptide (test code = 72809-1) 178.5 0-100 [facility]odium Ftgpb6411-77-39 04:35:00* Test Item Value Reference Range Interpretation Comments Sodium Level (test code = 2951-2) 135 136-145 L [facility]hamPotassium Buhal5731-51-20 04:35:00* Test Item Value Reference Range Interpretation Comments Potassium Level (test code = 2823-3) 3.4 3.5-5.1 L [facility]hamChloride Nnblo8107-44-10 04:35:00* Test Item Value Reference Range Interpretation Comments Chloride Level (test code = 2075-0) 98 98-107 [facility]hamCarbon Dioxide Vtiwp7012-70-63 04:35:00* Test Item Value Reference Range Interpretation Comments Carbon Dioxide Level (test code = 2028-9) 30 22-29 H [facility] BrenhamAnion Lja3570-57-02 04:35:00* Test Item Value Reference Range Interpretation Comments Anion Gap (test code = 48963-4) 10.4 8-16 [facility] BrenhamBlood Urea Scyvwiaj6659-40-79 04:35:00* Test Item Value Reference Range Interpretation Comments Blood Urea Nitrogen (test code = 3094-0) 22 7-26 [facility]hamCreatinine2019-07-01 04:35:00* Test Item Value Reference Range Interpretation Comments Creatinine (test code = 2160-0) 0.87 0.72-1.25 [facility]hamBUN/Creatinine Pgazj6845-57-67 04:35:00* Test Item Value Reference Range Interpretation Comments BUN/Creatinine Ratio (test code = 3097-3) 25 6-25 [facility] BrenhamEstimat Glomerular Filtration Rate 2018-10-17 04:35:00* Test Item Value Reference Range Interpretation Comments Estimat Glomerular Filtration Rate (test code = 246010546) > 60 >60 Ranges were taken from the National Kidney Disease Education Program and the [facility] Kidney Foundation literature.Reference ranges:60 or greater: Uwjtti03-14 ( for 3 consecutive months): Chronic kidney disease 15 or less: Kidney failureBaylor Scott & [facility] – BrenhamGlucose Phqki7545-18-37 04:35:00* Test Item Value Reference Range Interpretation Comments Glucose Level (test code = TRG8095) 177 74-118 H [facility]hamCalcium Pxocd8502-53-03 04:35:00* Test Item Value Reference Range Interpretation Comments Calcium Level (test code = 72189-2) 9.1 8.4-10.2 [facility]hamMagnesium Aybmv7272-60-13 04:35:00* Test Item Value Reference Range Interpretation Comments Magnesium Level (test code = 22465-2) 1.8 1.3-2.1 [facility]hamMagnesium Zbxoc2305-33-01 04:35:00* Test Item Value Reference Range Interpretation Comments Magnesium Level (test code = 32830-4) 1.8 1.3-2.1 [facility]hamWhite Blood Xnigw0632-37-12 04:23:00* Test Item Value Reference Range Interpretation Comments White Blood Count (test code = 6690-2) 6.11 4.8-10.8 [facility]hamRed Blood Bzxtf6455-05-21 04:23:00* Test Item Value Reference Range Interpretation Comments Red Blood Count (test code = 789-8) 5.27 4.3-5.7 [facility]hamHemoglobin2019-07-01 04:23:00* Test Item Value Reference Range Interpretation Comments Hemoglobin (test code = 86476-0) 13.4 14.0-18.0 L [facility]hamHematocrit2019-07-01 04:23:00* Test Item Value Reference Range Interpretation Comments Hematocrit (test code = 4544-3) 41.6 38.2-49.6 [facility] BrenhamMean Corpuscular Snrubw0749-72-39 04:23:00* Test Item Value Reference Range Interpretation Comments Mean Corpuscular Volume (test code = 787-2) 78.9 81-99 L [facility]hamMean Corpuscular Mjnrvitbdj9406-49-21 04:23:00* Test Item Value Reference Range Interpretation Comments Mean Corpuscular Hemoglobin (test code = 785-6) 25.4 28-32 L [facility] BrenhamMean Corpuscular Hemoglobin Concent 2018-10-17 04:23:00* Test Item Value Reference Range Interpretation Comments Mean Corpuscular Hemoglobin Concent (test code = 786-4) 32.2 31-35 [facility]hamRed Cell Distribution Bablt4158-43-09 04:23:00* Test Item Value Reference Range Interpretation Comments Red Cell Distribution Width (test code = 84941-4) 14.3 11.7 -14.4 [facility] BrenhamPlatelet Hrqig0167-41-88 04:23:00* Test Item Value Reference Range Interpretation Comments Platelet Count (test code = 777-3) 178 140-360 [facility]hamNeutrophils (%) (Auto)2018-10-17 04:23:00 * Test Item Value Reference Range Interpretation Comments Neutrophils (%) (Auto) (test code = 61393-8) 60.1 38.7-80.0 [facility]hamLymphocytes (%) (Auto)2018-10-17 04:23:00 * Test Item Value Reference Range Interpretation Comments Lymphocytes (%) (Auto) (test code = 736-9) 27.5 18.0-39.1 [facility]hamMonocytes (%) (Auto)2018-10-17 04:23:00* Test Item Value Reference Range Interpretation Comments Monocytes (%) (Auto) (test code = 5905-5) 9.2 4.4-11.3 [facility]hamEosinophils (%) (Auto)2018-10-17 04:23:00 * Test Item Value Reference Range Interpretation Comments Eosinophils (%) (Auto) (test code = 713-8) 2.6 0.0-6.0 [facility]hamBasophils (%) (Auto)2018-10-17 04:23:00* Test Item Value Reference Range Interpretation Comments Basophils (%) (Auto) (test code = 706-2) 0.3 0.0-1.0 [facility] BrenhamIM GRANULOCYTES %2018-10-17 04:23:00* Test Item Value Reference Range Interpretation Comments IM GRANULOCYTES % (test code = IM GRANULOCYTES %) 0.3 0.0- 1.0 [facility]hamNeutrophils # (Auto)2018-10-17 04:23:00* Test Item Value Reference Range Interpretation Comments Neutrophils # (Auto) (test code = 751-8) 3.7 2.1-6.9 [facility] BrenhamLymphocytes # (Auto)2018-10-17 04:23:00* Test Item Value Reference Range Interpretation Comments Lymphocytes # (Auto) (test code = 14932-7) 1.7 1.0-3.2 [facility]hamMonocytes # (Auto)2018-10-17 04:23:00* Test Item Value Reference Range Interpretation Comments Monocytes # (Auto) (test code = 742-7) 0.6 0.2-0.8 [facility]hamEosinophils # (Auto)2018-10-17 04:23:00* Test Item Value Reference Range Interpretation Comments Eosinophils # (Auto) (test code = 711-2) 0.2 0.0-0.4 [facility]hamBasophils # (Auto)2018-10-17 04:23:00* Test Item Value Reference Range Interpretation Comments Basophils # (Auto) (test code = 704-7) 0.0 0.0-0.1 [facility] BrenhamAbsolute Immature Granulocyte (auto 2018-10-17 04:23:00* Test Item Value Reference Range Interpretation Comments Absolute Immature Granulocyte (auto (audra t code = Absolute Immature Granulocyte (auto) 0.02 0-0.1 [facility] BrenhamFr Xwrbjnedo1181-78-23 04:58:00* Test Item Value Reference Range Interpretation Comments Free Thyroxine (test code = 3024-7) 1.10 0.8-1.8 [facility] BrenhamThyroid Stimulating Hormone (TSH) 2018-10-15 04:58:00* Test Item Value Reference Range Interpretation Comments Thyroid Stimulating Hormone (TSH) (test code = 53985-6) 1.598 0.350-4.940 [facility] BrenhamFr Rnwaurywn2849-59-93 04:58:00* Test Item Value Reference Range Interpretation Comments Free Thyroxine (test code = 3024-7) 1.10 0.8-1.8 [facility] BrenhamThyroid Stimulating Hormone (TSH) 2018-10-15 04:58:00* Test Item Value Reference Range Interpretation Comments Thyroid Stimulating Hormone (TSH) (test code = 81322-7) 1.598 0.350-4.940 [facility] BrenhamTriglycerides Bsowf1916-94-03 04:42:00* Test Item Value Reference Range Interpretation Comments Triglycerides Level (test code = 2571-8) 87 0-149 [facility] BrenhamCholesterol Uofcl9134-46-63 04:42:00* Test Item Value Reference Range Interpretation Comments Cholesterol Level (test code = 2093-3) 226 0-199 H Less than 200 mg/dL Low Qfhl201 - 239 mg/dL Borderline Lqia031 m g/dl and greater High Risk [facility] BrenhamLDL Cqpomdxacaa6897-31-11 04:42:00* Test Item Value Reference Range Interpretation Comments LDL Cholesterol (test code = 2089-1) 146 60-130 H [facility] BrenhamHDL Awuvzvxwqks3925-75-66 04:42:00* Test Item Value Reference Range Interpretation Comments HDL Cholesterol (test code = 2085-9) 63 40-60 H [facility]hamCholesterol/HDL Krwwt5548-81-23 04:42:00 * Test Item Value Reference Range Interpretation Comments Cholesterol/HDL Ratio (test code = 9830-1) 3.6 3.9-4.7 L [facility] BrenhamTriglycerides Fyike6962-55-93 04:42:00* Test Item Value Reference Range Interpretation Comments Triglycerides Level (test code = 2571-8) 87 0-149 [facility]hamCholesterol Zxuaf9326-07-62 04:42:00* Test Item Value Reference Range Interpretation Comments Cholesterol Level (test code = 2093-3) 226 0-199 H Less than 200 mg/dL Low Xbxk618 - 239 mg/dL Borderline Cbbv795 m g/dl and greater High Risk [facility] BrenhamLDL Ttirdoicftg1101-22-78 04:42:00* Test Item Value Reference Range Interpretation Comments LDL Cholesterol (test code = 2089-1) 146 60-130 [facility] Niqmyyuebfm6035-43-79 04:42:00* Test Item Value Reference Range Interpretation Comments HDL Cholesterol (test code = 2085-9) 63 40-60 H [facility]hamCholesterol/HDL Aasod7010-99-98 04:42:00 * Test Item Value Reference Range Interpretation Comments Cholesterol/HDL Ratio (test code = 9830-1) 3.6 3.9-4.7 L [facility]hamHemoglobin A1c Bmlhhgg6998-68-71 04:08:00 * Test Item Value Reference Range Interpretation Comments Hemoglobin A1c Percent (test code = Hemoglobin A1c Percent) 14.4 4.0-7.0 H [facility]hamHemoglobin A1c Gasgmef4930-18-54 04:08:00 * Test Item Value Reference Range Interpretation Comments Hemoglobin A1c Percent (test code = Hemoglobin A1c Percent) 14.4 4.0-7.0 H [facility] BrenhamCreatine Vkvrqi6406-48-46 22:58:00* Test Item Value Reference Range Interpretation Comments Creatine Kinase (test code = 2157-6) 63 30-200 [facility] BrenhamTotal Twoyypjke7152-06-47 06:50:00* Test Item Value Reference Range Interpretation Comments Total Bilirubin (test code = 1975-2) 0.7 0.2-1.2 [facility] BrenhamAspartate Amino Transf (AST/SGOT) 2018-10-14 06:50:00* Test Item Value Reference Range Interpretation Comments Aspartate Amino Transf (AST/SGOT) (test code = Aspartate Amino Transf (AST/SGOT)) 16 5-34 [facility] BrenhamAlanine Aminotransferase (ALT/SGPT) 2018-10-14 06:50:00* Test Item Value Reference Range Interpretation Comments Alanine Aminotransferase (ALT/SGPT) (test code = 1742-6) 21 0-55 [facility] BrenhamTotal Lbtwprz4202-69-60 06:50:00* Test Item Value Reference Range Interpretation Comments Total Protein (test code = 2885-2) 6.4 6.5-8.1 L [facility] BrenhamAlbumin2019-06-28 06:50:00* Test Item Value Reference Range Interpretation Comments Albumin (test code = 1751-7) 3.1 3.5-5.0 L [facility] BrenhamGlobulin2019-06-28 06:50:00* Test Item Value Reference Range Interpretation Comments Globulin (test code = 42351-8) 3.3 2.3-3.5 [facility] BrenhamAlbumin/Globulin Svnud1838-67-41 06:50:00 * Test Item Value Reference Range Interpretation Comments Albumin/Globulin Ratio (test code = 1759-0) 0.9 0.8-2.0 [facility] BrenhamAlkaline Iawzpvketpn2814-90-37 06:50:00* Test Item Value Reference Range Interpretation Comments Alkaline Phosphatase (test code = 6768-6) 66 40-150 [facility] BrenhamCreatine Kinase IU0188-12-35 06:25:00* Test Item Value Reference Range Interpretation Comments Creatine Kinase MB (test code = 69722-7) 1.80 0-5.0 [facility] BrenhamTroponin W0282-90-93 06:25:00* Test Item Value Reference Range Interpretation Comments Troponin I (test code = PAM1180) 0.013 0-0.300 [facility] BrenhamCHES SINGLE (PORTABLE)2018-10-13 22:24:00 [place] [id number] Patient Name: SHOAIB JOHANSEN MR #: [id number] : 1970 Age/Sex: 48/M Req #: [id number] Adm Physician: Ordered by: RIRI VILLALTA MD Report #: [id number] Location: ER Room/Bed: Procedure: [id number] DX/CHEST SINGLE (PORTABLE) Exam Date: 10/13/18 Exam Time: 2199 REPORT STATUS: Si gned Examination: Single AP view of the chest. COMPARISON: None. IN DICATION: Shortness of breath DISCUSSION: Lines/tubes: Sternotom y wires. Lungs: Pulmonary edema. Pleura: There is no pleural effusio n or pneumothorax. Heart and mediastinum: Cardiomegaly. Bones and sof t tissues: No acute bony abnormalities. IMPRESSION: 1. Cardio megaly with edema Signed by: Dr. Uma Shaffer M.D. on 10/13/2018 10:25 PM Dictated By: UMA SHAFFER MD 24 Transcribed By: JUAN on 10/13/182224 COPY TO : RIRI VILLALTA MD BASIC METABOLIC GEXNJ4217-94-65 12:14:00* Test Item Value Reference Range Interpretation Comments SODIUM (BEAKER) (test code = 381) 135 meq/L 136-145 L POTASSIUM (BEAKER) (test code = 379) 4.6 meq/L 3.5-5.1 CHLORIDE (BEAKER) (test code = 382) 100 meq/L 98-107 CO2 (BEAKER) (test code = 355) 29 meq/L 22-29 BLOOD UREA NITROGEN (BEAKER) (test code = 354) 11 mg/dL 7-21 CREATININE (BEAKER) (test code = 358) 1.03 mg/dL 0.57-1.25 GLUCOSE RANDOM (BEAKER) (test code = 652) 446 mg/dL 70-105 HH CALCIUM (BEAKER) (test code = 697) 9.0 mg/dL 8.4-10.2 EGFR (BEAKER) (test code = 1092) 77 mL/min/1.73 sq m ESTIMATED GFR IS NOT ACCURATE CREATININE CLEARANCE IN PREDICTING GLOMERULAR FILTRATION RATE. ESTIMATED GFR IS NOT APPLICABLE FOR DIALYSIS PATIENTS. CBC W/PLT COUNT & AUTO DCHGCXSMLHQP2232-51-84 11:35:00* Test Item Value Reference Range Interpretation Comments WHITE BLOOD CELL COUNT (BEAKER) (test code = 775) 6.7 K/ L 3.5- 10.5 RED BLOOD CELL COUNT (BEAKER) (test code = 761) 5.59 M/ L 4.63-6 .08 HEMOGLOBIN (BEAKER) (test code = 410) 14.3 GM/DL 13.7-17.5 HEMATOCRIT (BEAKER) (test code = 411) 45.2 % 40.1-51.0 MEAN CORPUSCULAR VOLUME (BEAKER) (test code = 753) 80.9 fL 79. 0-92.2 MEAN CORPUSCULAR HEMOGLOBIN (BEAKER) (test code = 751) 25.6 pg 25.7-32.2 L MEAN CORPUSCULAR HEMOGLOBIN CONC (BEAKER) (test code = 752) 31.6 GM/DL 32.3-36.5 L RED CELL DISTRIBUTION WIDTH (BEAKER) (test code = 412) 13.4 % 11.6-14.4 PLATELET COUNT (BEAKER) (test code = 756) 125 K/CU MM 150-450 L MEAN PLATELET VOLUME (BEAKER) (test code = 754) 13.4 fL 9.4-12 .4 H NUCLEATED RED BLOOD CELLS (BEAKER) (test code = 413) 0 /100 WBC 0 -0 NEUTROPHILS RELATIVE PERCENT (BEAKER) (test code = 429) 70 % LYMPHOCYTES RELATIVE PERCENT (BEAKER) (test code = 430) 22 % MONOCYTES RELATIVE PERCENT (BEAKER) (test code = 431) 6 % EOSINOPHILS RELATIVE PERCENT (BEAKER) (test code = 432) 2 % BASOPHILS RELATIVE PERCENT (BEAKER) (test code = 437) 0 % NEUTROPHILS ABSOLUTE COUNT (BEAKER) (test code = 670) 4.68 K/ L 1.78-5.38 LYMPHOCYTES ABSOLUTE COUNT (BEAKER) (test code = 414) 1.46 K/ L 1.32-3.57 MONOCYTES ABSOLUTE COUNT (BEAKER) (test code = 415) 0.41 K/ L 0. 30-0.82 EOSINOPHILS ABSOLUTE COUNT (BEAKER) (test code = 416) 0.11 K/ L 0.04-0.54 BASOPHILS ABSOLUTE COUNT (BEAKER) (test code = 417) 0.01 K/ L 0. 01-0.08 IMMATURE GRANULOCYTES-RELATIVE PERCENT (BEAKER) (test code = 2801) 0 % 0-1
[2019-09-18] MEDS ORDERED: SODIUM CHLORIDE 0.9% 1000ML 1,000 ML IV STA (05:43)
[2019-09-18] MEDS ORDERED: LORAZEPAM INJ 2 MG/ML VIAL IV STA (05:43)
[2019-09-18] MEDS ORDERED: LEVETIRACETAM 500MG/5ML VIAL 500 MG in SODIUM CHLORIDE 0.9% 100 ML 100 ML IV SCH (05:45)
[2019-09-18 05:57] LABS: BASOPHILS % 0.2 % (0.0-1.0); EOSINOPHILS # (AUTO) 0.3 (0.0-0.4); EOSINOPHILS % 2.6 % (0.0-6.0); HEMATOCRIT 46.9 % (38.2-49.6); HEMOGLOBIN 14.9 g/dL (14.0-18.0); LYMPHOCYTES # (AUTO) 2.5 (1.0-3.2); LYMPHOCYTES % 25.2 % (18.0-39.1); MEAN CORPUSCULAR HEMOGLOBIN 24.9 pg (28-32); MEAN CORPUSCULAR HGB CONC 31.8 g/dL (31-35); MEAN CORPUSCULAR VOLUME 78.3 fL (81-99); MONOCYTES # (AUTO) 0.7 (0.2-0.8); MONOCYTES % 7.3 % (4.4-11.3); NEUTROPHILS # (AUTO) 6.4 (2.1-6.9); NEUTROPHILS % 63.9 % (38.7-80.0); PLATELET COUNT 191 x10e3/uL (140-360); RED BLOOD COUNT 5.99 x10e6/uL (4.3-5.7); RED CELL DISTRIBUTION WIDTH 14.4 % (11.7-14.4)
[2019-09-18] MEDS ORDERED: LEVETIRACETAM 500 MG/5 ML VIAL IV ONE (05:59)
[2019-09-18] MEDS ORDERED: SODIUM CHLORIDE 0.9% 100 ML ONE (06:01)
[2019-09-18 06:13] LABS: ALANINE AMINOTRANSFERASE 20 IU/L (0-55); ALBUMIN 3.4 g/dL (3.5-5.0); ALBUMIN/GLOBULIN RATIO 0.8 (0.8-2.0); ALKALINE PHOSPHATASE 94 IU/L (40-150); ANION GAP 19.6 mmol/L (8-16); BLOOD UREA NITROGEN 22 mg/dL (7-26); BUN/CREATININE RATIO 15 (6-25); CALCIUM 9.6 mg/dL (8.4-10.2); CARBON DIOXIDE 21 mmol/L (22-29); CHLORIDE 97 mmol/L (98-107); CREATINE KINASE 94 IU/L (30-200); CREATININE, SERUM 1.46 mg/dL (0.72-1.25); EST GLOMERULAR FILTRATION RATE 51 ML/MIN (60-); LIPASE 25 U/L (8-78); POTASSIUM 4.6 mmol/L (3.5-5.1); SODIUM 133 mmol/L (136-145)
--- NOTE | 2019-09-18 06:13 | Emergency Department Note ---
History of Present Illnes History of Present Illness History of Present Illness This is a 49 year old male brought by EMS for "seizure" like activity for 2 days. Per EMS and family patient with ocular and left cervical rotation to the left during the events. 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 Upon arrival patient conversant in the ambulance truck but witnessed to abruptly turn head to the left with rhymic smacking of lips. Upon transport into the ED patient with GTC event and unconscious. Brought to ED bed 1 for resucitatoin. . Historian: Patient, Edi Coordinator/EMS Arrival Mode: [employer] Manager Required: No Onset (how long ago): day(s) (2) Severity: severe Onset quality: sudden Timing of current episode: constant Progression: worsening Chronicity: new Relieving factors: none Exacerbating factors: none Associated symptoms: confusion Treatments prior to arrival: none (ANGIE YBARRA DO) Past Medical/Family History Physician Review I have reviewed the patient's past medical and family history. Any updates have been documented here. 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 (ANGIE YBARRA DO) Physical Exam Related Data Allergies: Coded Allergies: No Known Drug Allergies (Verified Allergy, Unknown, 10/13/18) Physical Exam CONSTITUTIONAL Constitutional: morbidly obese, distressed, ill appearing HENT HENT: normocephalic, atraumatic, oropharynx clear/moist, nose normal HENT L/R: left ext ear normal, right ext ear normal EYES Eyes: PERRL, conjunctivae normal NECK Neck: ROM normal PULMONARY Pulmonary: effort normal, breath sounds normal CARDIOVASCULAR Cardiovascular: regular rhythm, heart sounds normal, capillary refill normal, normal rate GASTROINTESTINAL Abdominal: soft, nontender, bowel sounds normal GENITOURINARY Genitourinary: exam deferred SKIN Skin: other (dry full thickness ulcer R foot singular toe 6-8 cm ) MUSCULOSKELETAL Musculoskeletal: ROM normal NEUROLOGICAL Neurological: alert, oriented x 3, no gross motor or sensory deficits PSYCHOLOGICAL Psychological: mood/affect normal, judgement normal (ANGIE YBARRA DO) Results Laboratory Laboratory Laboratory Tests Test 09/18/19 05:49 09/18/19 05:40 Urine Color Yellow (YELLOW) Urine Clarity Clear (CLEAR) Urine pH 5 (5 - 7) Urine Specific [place] 1.015 (1.010-1.025) Urine Protein >=300 (NEGATIVE) Urine Glucose (UA) 2+ (NEGATIVE) Urine Ketones Negative (NEGATIVE) Urine Blood Moderate (NEGATIVE) Urine Nitrite Negative (NEGATIVE) Urine Bilirubin Negative (NEGATIVE) Urine Urobilinogen 0.2 mg/dL (0.2 - 1) Urine Leukocyte Esterase Negative (NEGATIVE) Urine RBC 11-20 /HPF (0-5) Urine WBC 0-5 /HPF (0-5) Urine Epithelial Cells Rare /LPF (NONE) Urine Bacteria Rare /HPF (NONE) Urine Sperm Present (NONE) Urine Opiates Screen Negative (NEGATIVE) Urine Methadone Screen Negative (NEGATIVE) Urine Barbiturates Screen Negative (NEGATIVE) Urine Phencyclidine Screen Negative (NEGATIVE) Urine Amphetamines Screen Negative (NEGATIVE) Urine Methamphetamines Screen Negative (NEGATIVE) Urine Benzodiazepines Screen Negative (NEGATIVE) Urine Cocaine Screen Negative (NEGATIVE) Urine Cannabinoids Screen Negative (NEGATIVE) White Blood Count 10.08 x10e3/uL (4.8-10.8) Red Blood Count 5.99 x10e6/uL (4.3-5.7) Hemoglobin 14.9 g/dL (14.0-18.0) Hematocrit 46.9 % (38.2-49.6) Mean Corpuscular Volume 78.3 fL (81-99) Mean Corpuscular Hemoglobin 24.9 pg (28-32) Mean Corpuscular Hemoglobin Concent 31.8 g/dL (31-35) Red Cell Distribution Width 14.4 % (11.7-14.4) Platelet Count 191 x10e3/uL (140-360) Neutrophils (%) (Auto) 63.9 % (38.7-80.0) Lymphocytes (%) (Auto) 25.2 % (18.0-39.1) Monocytes (%) (Auto) 7.3 % (4.4-11.3) Eosinophils (%) (Auto) 2.6 % (0.0-6.0) Basophils (%) (Auto) 0.2 % (0.0-1.0) Neutrophils # (Auto) 6.4 (2.1-6.9) Lymphocytes # (Auto) 2.5 (1.0-3.2) Monocytes # (Auto) 0.7 (0.2-0.8) Eosinophils # (Auto) 0.3 (0.0-0.4) Basophils # (Auto) 0.0 (0.0-0.1) Absolute Immature Granulocyte (auto 0.08 x10e3/uL (0-0.1) Sodium Level 133 mmol/L (136-145) Potassium Level 4.6 mmol/L (3.5-5.1) Chloride Level 97 mmol/L (98-107) Carbon Dioxide Level 21 mmol/L (22-29) Anion Gap 19.6 mmol/L (8-16) Blood Urea Nitrogen 22 mg/dL (7-26) Creatinine 1.46 mg/dL (0.72-1.25) Estimat Glomerular Filtration Rate 51 ML/MIN (60-) BUN/Creatinine Ratio 15 (6-25) Glucose Level 496 mg/dL (74-118) Calcium Level 9.6 mg/dL (8.4-10.2) Total Bilirubin 0.5 mg/dL (0.2-1.2) Aspartate Amino Transf (AST/SGOT) 17 IU/L (5-34) Alanine Aminotransferase (ALT/SGPT) 20 IU/L (0-55) Alkaline Phosphatase 94 IU/L (40-150) Creatine Kinase 94 IU/L (30-200) Creatine Kinase MB 2.20 ng/mL (0-5.0) Troponin I 0.018 ng/mL (0-0.300) B-Type Natriuretic Peptide 984.8 pg/mL (0-100) Total Protein 7.9 g/dL (6.5-8.1) Albumin 3.4 g/dL (3.5-5.0) Globulin 4.5 g/dL (2.3-3.5) Albumin/Globulin Ratio 0.8 (0.8-2.0) Lipase 25 U/L (8-78) Salicylates Level < 5.0 mg/dL (0-30) Acetaminophen Level < 3.0 ug/mL (10-30) Ethyl Alcohol Level < 10.0 mg/dL (0.0-10.0) Lab results reviewed: Yes (ANGIE YBARRA DO) Imaging Imaging results reviewed: Yes Impressions [place] [address] Patient Name: SHOAIB JOHANSEN MR #: [id number] : 1970 Age/Sex: 49/M Req #: [id number] Adm Physician: Ordered by: ANGIE YBARRA DO Report #: [id number] Location: ER Room/Bed: Procedure: [id number] CT/CT BRAIN WO Exam Date: 09/18/19 Exam Time: 604 REPORT STATUS: Signed EXAMINATION: Head CT without contrast. HISTORY:Seizure. COMPARISON:CT brain from 06/07/2019. TECHNIQUE: Multidetector axial images were obtained from the foramen magnum to the vertex without contrast. The images were reconstructed using brain and bone algorithms. Thin section brain images were reformatted into coronal and sagittal planes. Dose modulation, iterative reconstruction, and/or weight based adjustment of the mA/kV was utilized to reduce the radiation dose to as low as reasonably achievable. Intravenous contrast: None IMAGE QUALITY: Suboptimal evaluation particularly at the level of skull base and posterior fossa structures due to streak artifacts. FINDINGS: Skull/scalp: Unchanged soft tissue thickening in right frontal scalp may represents scar. Parenchyma: Unchanged cortical-based hypodensity in left medial occipital lobe along the lingual gyrus, right inferior cerebellum and right medial frontal lobe/genu of the corpus callosum represents chronic encephalomalacia from prior vascular insult. Unchanged chronic lacunar infarct in left putamen, right superior cerebellum and left paramedian cesar. Nonspecific few, scattered supratentorial white matter hypodensity are likely related to small vessel ischemic changes. No acute hemorrhage, mass or acute major vascular territorial infarct. Arteries: No density suggestive of thrombosis. Dural sinuses: No abnormal density suggestive of thrombosis. Ventricles: No hydrocephalus or displacement. Extra-axial spaces: No abnormal density. Brain volume: Normal for age. Craniocervical junction: No mass, Chiari malformation, or basilar invagination. Sella: No mass. Paranasal/mastoid sinuses: Imaged portions unremarkable. IMPRESSION: No acute intracranial abnormality. No change since CT head from 06/07/2019. Unchanged multifocal chronic infarcts as detailed above. Signed by: Dr. Bisi Connelly M.D. on 09/18/2019 6:35 AM Dictated By: BISI CONNELLY MD 4 Transcribed By: JUAN on 09/18/19634 COPY TO: ANGIE YBARRA DO~ (ANGIE YBARRA DO) Procedures 12 Lead ECG Interpretation Poultry Barn Manager: Interpreted by ED physician Date: Sep 18, 2019 Time: 05:51 Prior LIGHT BULB REPLACER tracings: reviewed Rhythm: sinus rhythm BPM: 86 QRS axis: normal ST segments depression: V4, V5, V6 T waves normal: Yes Other findings: LVH with strain, prolonged QTc interval Clinical Impression: non-specific ECG (ANGIE YBARRA DO) Central Line Placement Central Line Location: left femoral Time out performed: Yes Patient Placed on Monitor/Puls: Yes Prep: mask, gown, gloves Central Line Prep: Chlorhexidine scrub, sterile drapes applied Ultrasound Used for Placement: No Central Line Lumen Inserted: triple Post Procedure: sutured in place, good blood return, all ports aspirated/flushed/capped, sterile dressing applied Post Procedure X-ray: tip of catheter in good condition Patient tolerated procedure: well Complications: none Additional comments approximately 0530 on 09/18/2019 (ANGIE YBARRA DO) Critical Care Time Total Critical Care Time (min): 40 Critcal care necessary due to: FINISH MENDER failure or compromise Critcal care time spent by me: discussion w consultants, discussion w primary provider, evaluation patient response to tx, order/perform tx or interventions, order/review laboratory studies, order/review radiographic studies, pulse oximetry, re-evaluation of patient condition Subsequent provider I assumed direction of critical care for this patient from another provider of my specialty. Comments Patient signed out to DR Mary Clarke at 0730 on 09/18/2019 (ANGIE YBARRA DO) Assessment & Plan Reassessment Reassessment time: 07:00 Reassessment patient re-assessed at 09/18/19 at 0700 AM , arousable and AO X 3 and able to answer questions (ANGIE YBARRA DO) Assessment & Plan Final Impression: (1) GEN IDIOPATHIC EPILEPSY, NOT INTRACTABLE, W STAT EPI (2) PERSONAL HISTORY OF DIABETIC FOOT ULCER (3) HYPERTENSIVE ENCEPHALOPATHY (4) DIABETES DUE TO UNDERLYING CONDITION W KETOACIDOSIS W COMA Assessment & Plan Patient with new onset seizure and elevated blood sugar. GTC event witnessed in ED. Labs reviewed. Patient requires admission for further evaluatoin (ANGIE YBARRA DO) Depart Disposition: ADMITTED Home Meds Active Scripts Aspirin (ASPIRIN) 325 Mg Tablet, 325 MG PO DAILY, #30 TAB Prov:СЕРГЕЙ ROSEN PULLMAN CLERK 10/18/18 Furosemide (FUROSEMIDE) 40 Mg Tablet, 40 MG PO BID for 30 Days, TAB Prov:СЕРГЕЙ ROSEN PULLMAN CLERK 10/18/18 Potassium Chloride (KLOR-CON M20) 20 Meq Tabcr, 20 MEQ PO BID for 30 Days Prov:СЕРГЕЙ ROSEN NP 10/18/18 Losartan Potassium (COZAAR) 100 Mg Tablet, 100 MG PO DAILY for 30 Days Prov:СЕРГЕЙ ROSEN NP 10/18/18 Carvedilol (COREG) 12.5 Mg Tab, 12.5 MG PO BID for 30 Days, TAB Prov:СЕРГЕЙ ROSEN PULLMAN CLERK 10/18/18 Reported Medications Hydrochlorothiazide (HYDROCHLOROTHIAZIDE) 25 Mg Tablet, 25 MG DAILY, #30 TAB 10/14/18 Simvastatin (SIMVASTATIN) 40 Mg Tablet, 40 MG PO 2100, #30 TAB 10/14/18 Insulin Aspart (NOVOLOG) 100 Unit/1 Ml Cartridge, 20 SQ DAILY 10/14/18 Medications in the ED Levetiracetam 500 mg/Sodium Chloride 105 ml @ 420 mls/hr Q12H IV ; Start 09/18/19 at 05:45; Stop 10/18/19 at 05:44; Status UNV Nicardipine/ Sodium Chloride 200 ml @ 0 mls/hr TITRATE PRN IV ELEVATED BLOOD PRESSURE; Start 09/18/19 at 05:45; Stop 10/18/19 at 05:44; Status UNV Lorazepam 2 mg ONCE STAT IV ; Start 09/18/19 at 05:43; Stop 09/18/19 at 05:44; Status UNV Sodium Chloride 1,000 ml @ 0 mls/hr Q0M STAT IV ; Start 09/18/19 at 05:43; Stop 09/18/19 at 05:44 (ANGIE YBARRA DO) ANGIE YBARRA DO Sep 18, 2019 06:13 MARY CLARKE DO Sep 26, 2019 00:35
[2019-09-18 06:15] LABS: GLUCOSE 496 mg/dL (74-118)
[2019-09-18 06:17] LABS: CLARITY,URINE CLEAR (CLEAR); COLOR,URINE YELLOW (YELLOW)
[2019-09-18 06:18] LABS: AMPHETAMINES SCREEN,URINE NEGATIVE (NEGATIVE); BENZODIAZEPINES SCREEN,URINE NEGATIVE (NEGATIVE); BILIRUBIN,URINE NEGATIVE (NEGATIVE); KETONES,URINE NEGATIVE (NEGATIVE); LEUKOCYTE ESTERASE ,URINE NEGATIVE (NEGATIVE); NITRITE,URINE NEGATIVE (NEGATIVE); PHENCYCLIDINE SCREEN,URINE NEGATIVE (NEGATIVE); PROTEIN,URINE DIPSTICK >=300 (NEGATIVE); URINE UROBILINOGEN 0.2 mg/dL (0.2 - 1)
[2019-09-18] MEDS: LEVETIRACETAM 500MG/5ML VIAL 500 MG in SODIUM CHLORIDE 0.9% 100 ML 100 ML IV SCH ×2 (06:20→18:05)
[2019-09-18 06:31] LABS: WBC,URINE (MAN) 0-5 /HPF (0-5)
[2019-09-18 06:32] LABS: BACTERIA,URINE RARE /HPF; EPITHELIAL CELLS,URINE RARE /LPF
[2019-09-18] MEDS: NICARDIPINE 20MG/200ML PREMIX 200 ML IV PRN ×2 (06:32→07:04)
[2019-09-18 06:34] LABS: SALICYLATE < 5.0 mg/dL (0-30)
--- NOTE | 2019-09-18 06:39 | Diagnostic Imaging Report ---
EXAMINATION: Head CT without contrast. HISTORY:Seizure. COMPARISON:CT brain from 06/07/2019. TECHNIQUE: Multidetector axial images were obtained from the foramen magnum to the vertex without contrast. The images were reconstructed using brain and bone algorithms. Thin section brain images were reformatted into coronal and sagittal planes. Dose modulation, iterative reconstruction, and/or weight based adjustment of the mA/kV was utilized to reduce the radiation dose to as low as reasonably achievable. Intravenous contrast: None IMAGE QUALITY: Suboptimal evaluation particularly at the level of skull base and posterior fossa structures due to streak artifacts. FINDINGS: Skull/scalp: Unchanged soft tissue thickening in right frontal scalp may represents scar. Parenchyma: Unchanged cortical-based hypodensity in left medial occipital lobe along the lingual gyrus, right inferior cerebellum and right medial frontal lobe/genu of the corpus callosum represents chronic encephalomalacia from prior vascular insult. Unchanged chronic lacunar infarct in left putamen, right superior cerebellum and left paramedian cesar. Nonspecific few, scattered supratentorial white matter hypodensity are likely related to small vessel ischemic changes. No acute hemorrhage, mass or acute major vascular territorial infarct. Arteries: No density suggestive of thrombosis. Dural sinuses: No abnormal density suggestive of thrombosis. Ventricles: No hydrocephalus or displacement. Extra-axial spaces: No abnormal density. Brain volume: Normal for age. Craniocervical junction: No mass, Chiari malformation, or basilar invagination. Sella: No mass. Paranasal/mastoid sinuses: Imaged portions unremarkable. IMPRESSION: No acute intracranial abnormality. No change since CT head from 06/07/2019. Unchanged multifocal chronic infarcts as detailed above. Signed by: Dr. Bisi Connelly M.D. on 09/18/2019 6:35 AM
--- NOTE | 2019-09-18 06:55 | NUR ---
pt responding to voice at this time. noted lethargic, oriented x 3. pt answers questions appropriately. no distress noted. resp even and unlabored on o2 3l nc.
[2019-09-18] MEDS ORDERED: POTASSIUM CHLORIDE 20MEQ/100ML 200 ML IV PRN (07:15)
[2019-09-18] MEDS ORDERED: DEXTROSE 5%/0.45% SOD CHL 1,000 ML IV SCH (07:15)
[2019-09-18] MEDS ORDERED: SODIUM CHLORIDE 0.9% 1000ML 1,000 ML IV SCH (07:15)
[2019-09-18] MEDS ORDERED: MAGNESIUM SULF 1GRAM/DEXTROSE 100 ML IV PRN (07:15)
--- NOTE | 2019-09-18 07:15 | NUR ---
REPORT GIVEN TO NEIL IQBAL RN
[2019-09-18] MEDS ORDERED: INSULIN REGULAR, HUMAN 3ML VL 100 UNIT in SODIUM CHLORIDE 0.9% 100 ML 99 ML IV SCH ×2 (07:30)
[2019-09-18 08:46] LABS: STREPTOCOCCUS GRP A ANTIGEN NEGATIVE (NEGATIVE)
[2019-09-18 08:49] LABS: INFLUENZAE A&B ANTIGEN (RAPID) NEGATIVE (NEGATIVE)
[2019-09-18 09:03] LABS: ANION GAP 13.7 mmol/L (8-16); BLOOD UREA NITROGEN 19 mg/dL (7-26); BUN/CREATININE RATIO 17 (6-25); CALCIUM 8.4 mg/dL (8.4-10.2); CARBON DIOXIDE 22 mmol/L (22-29); CHLORIDE 101 mmol/L (98-107); CREATININE, SERUM 1.13 mg/dL (0.72-1.25); EST GLOMERULAR FILTRATION RATE > 60 ML/MIN (60-); POTASSIUM 3.7 mmol/L (3.5-5.1); SODIUM 133 mmol/L (136-145)
[2019-09-18 09:09] LABS: GLUCOSE 406 mg/dL (74-118)
--- NOTE | 2019-09-18 09:25 | Diagnostic Imaging Report ---
EXAM: CHEST SINGLE (PORTABLE) DATE: 09/18/2019 6:05 AM INDICATION: Seizure COMPARISON: None FINDINGS: There are postsurgical changes from prior median sternotomy. The trachea is midline. Mildly prominent interstitial markings noted. The lungs are otherwise symmetrically expanded without evidence for large focal consolidation, pneumothorax, or significant pleural effusion. The cardiac mediastinal silhouette appears magnified by technique but otherwise unremarkable. No acute osseous abnormality is identified. IMPRESSION: Mildly prominent interstitial markings which are nonspecific but can be seen in setting of interstitial edema. Otherwise, no acute cardiopulmonary process identified Signed by: Dr. Gabriel Perkins MD on 09/18/2019 9:21 AM
[2019-09-18] MEDS ORDERED: SODIUM CHLORIDE 0.9% 1000ML 1,000 ML IV ONE (09:30)
--- NOTE | 2019-09-18 10:27 | NUR ---
PER MD RESTART PT HOME MEDS OF CARVEDILOL 12.5 MG PO BID, LASIX 40 MG PO BID, HCTZ 25 MG PO QDAILY, AND LOSARTAN 100 MG PO QDAILY; ORDER REPEATED BACK AND CONFIRMED
[2019-09-18] MEDS: FUROSEMIDE 40 MG TAB PO SCH ×2 (11:00→17:48)
[2019-09-18] MEDS: CARVEDILOL 12.5 MG TAB PO SCH ×2 (11:00→17:48)
[2019-09-18] MEDS ORDERED: ACETAMINOPHEN 325 MG TAB PO PRN (12:00)
[2019-09-18] MEDS ORDERED: ONDANSETRON HCL INJ 2MG/ML 2ML 2 MG/ML VIAL IV PRN (12:00)
[2019-09-18] MEDS ORDERED: HYDRALAZINE HCL 20 MG/ML VIAL IV PRN (12:00)
[2019-09-18] MEDS ORDERED: DEXTROSE 50% SYRINGE 50 ML IV PRN (12:00)
[2019-09-18 12:23] LABS: ANION GAP 13.9 mmol/L (8-16); BLOOD UREA NITROGEN 19 mg/dL (7-26); BUN/CREATININE RATIO 17 (6-25); CALCIUM 8.3 mg/dL (8.4-10.2); CARBON DIOXIDE 23 mmol/L (22-29); CHLORIDE 103 mmol/L (98-107); CREATININE, SERUM 1.09 mg/dL (0.72-1.25); EST GLOMERULAR FILTRATION RATE > 60 ML/MIN (60-); GLUCOSE 314 mg/dL (74-118); POTASSIUM 3.9 mmol/L (3.5-5.1); SODIUM 136 mmol/L (136-145)
[2019-09-18] MEDS ORDERED: INSULIN REGULAR, HUMAN 100 UNIT/1 ML 3ML VIAL IV ONE (12:30)
--- NOTE | 2019-09-18 13:43 | Consultation ---
DATE OF CONSULTATION: Pulmonary Critical Care Consultation CHIEF COMPLAINT: Possible seizure. HISTORY OF PRESENT ILLNESS: The patient is a 49-year-old man. He has a history of diabetes and hypertension. Apparently, he had some seizure activity at home. He came into the emergency department and was found to have an elevated blood sugar as well as some acidosis. He was started on an insulin drip and received IV fluids. He now feels better. PAST MEDICAL HISTORY: 1. Hypertension. 2. Diabetes. 3. No prior history of seizure disorder. PAST SURGICAL HISTORY: History of coronary artery bypass grafting. FAMILY HISTORY: Family history is significant for coronary artery disease. SOCIAL HISTORY: There is no history of alcohol or drug use. The patient is not a smoker. ALLERGIES: THERE ARE NO KNOWN DRUG ALLERGIES. REVIEW OF SYSTEMS: The patient had no fever. The patient had no headache. He did have some seizure activity. He had no neck pain. There is no chest pain. He had no difficulty breathing. CARDIAC: Reveals a regular rate and rhythm with normal S1. He had no abdominal pain. He had no nausea or vomiting. He has no leg edema. PHYSICAL EXAMINATION: VITAL SIGNS: The patient is afebrile. The blood pressure is 144/60 and saturation is 98%. The respiratory rate was 18 and the pulse was 70. HEENT: Shows no facial swelling or erythema. CARDIAC: Reveals a regular rate and rhythm with normal S1 and S2. LUNGS: Auscultation of lungs reveals clear breath sounds bilaterally. There is no wheezing. ABDOMEN: Soft and nontender. There is no rebound or guarding. EXTREMITIES: Shows no leg edema or calf tenderness. There is no cyanosis or clubbing. SKIN: Shows no rashes. LABORATORY DATA: White blood cell count is 10 and the hemoglobin is 14.9. The platelet count is 191. The BUN to creatinine ratio is 19 to 1.09. Other electrolytes are within normal limits. The blood sugar is 314. RADIOGRAPHIC DATA: Chest x-ray shows no active disease. CT scan of the head shows no acute cranial abnormality. IMPRESSION: 1. New onset seizure. 2. Acidosis secondary to seizure activity. 3. Hyperglycemia. 4. Coronary artery disease. 5. 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 PLAN: 1. Switch the patient to subcutaneous insulin and monitor blood sugars. 2. Urology consultation. 3. Continue IV fluids. MD RISA Cassidy/EMMA /[id number]
[2019-09-18 15:53] LABS: ANION GAP 13.6 mmol/L (8-16); BLOOD UREA NITROGEN 16 mg/dL (7-26); BUN/CREATININE RATIO 16 (6-25); CALCIUM 8.2 mg/dL (8.4-10.2); CARBON DIOXIDE 23 mmol/L (22-29); CHLORIDE 104 mmol/L (98-107); CREATININE, SERUM 0.97 mg/dL (0.72-1.25); EST GLOMERULAR FILTRATION RATE > 60 ML/MIN (60-); GLUCOSE 252 mg/dL (74-118); MAGNESIUM 1.9 MG/DL (1.3-2.1); POTASSIUM 3.6 mmol/L (3.5-5.1); SODIUM 137 mmol/L (136-145)
[2019-09-18] MEDS ORDERED: FAMOTIDINE 20 MG/2 ML VIAL IV SCH (17:00)
[2019-09-18] MEDS: INSULIN LISPRO 100 UNIT/1 ML 3ML VIAL SQ SCH ×2 (17:54→21:58)
--- NOTE | 2019-09-18 18:40 | Consultation ---
DATE OF CONSULTATION: 09/18/2019 Cardiology Consultation REQUESTING PHYSICIAN: Maksim Diamond MD REASON FOR CONSULTATION: Hypertension. HISTORY OF PRESENT ILLNESS: This is a 49-year-old man with history of coronary artery disease status post CABG, hypertension, hyperlipidemia, diabetes mellitus, who presented with suspected seizure activity. The patient reports that he has been having episodes where his eyes deviate to the left for the last couple of days. He denies any tongue biting or bowel or bladder incontinence. This apparently was witnessed by EMS on transportation to the ER. On arrival into the ER, the patient apparently had a witnessed seizure and lost consciousness. Evaluation in the ER revealed a glucose of 496 and blood pressure that was elevated to 235/97. The patient was started on Keppra as well as insulin and nicardipine drips. Cardiology is consulted for further evaluation of his hypertension. The patient denies any cardiac complaints at this time. Denies any chest pain, shortness of breath, palpitations, edema, orthopnea or PND. REVIEW OF SYSTEMS: Negative except as per HPI. PAST MEDICAL HISTORY: 1. Coronary artery disease status post CABG. 2. Hypertension. 3. Hyperlipidemia. 4. Diabetes mellitus. PAST SURGICAL HISTORY: 1. CABG. 2. Knee surgery. 3. Toe amputation. ALLERGIES: PLEASE SEE EMR. MEDICATIONS: Please see medication list. SOCIAL HISTORY: No tobacco, alcohol or illicit drugs. FAMILY HISTORY: Noncontributory to current illness. PHYSICAL EXAMINATION: VITAL SIGNS: Temperature 98.3 degrees, pulse 66, respiratory rate 24, blood pressure 154/75, oxygen saturation 99%. GENERAL: Obese gentleman, in no acute distress. Awake and alert. HEENT: Normocephalic, atraumatic. Pupils equal. No scleral icterus. NECK: Supple. No thyromegaly or cervical lymphadenopathy. No carotid bruits. LUNGS: Clear to auscultation bilaterally. No wheezes or crackles. CARDIOVASCULAR: Normal rate. Regular rhythm. No murmur. Normal S1 and S2. ABDOMEN: Soft and nontender. EXTREMITIES: No edema. NEUROLOGIC: Nonfocal exam. LABORATORY DATA: Sodium 136, potassium 3.9, chloride 103, CO2 23, BUN 19, and creatinine 1.09. WBC 10.08, hemoglobin 14.9, hematocrit 46.9, platelets 191. Urine drug screen was negative. EKG, normal sinus rhythm, left atrial enlargement, LVH with repolarization abnormality. IMPRESSION: 1. Hypertensive urgency. 2. Seizure. 3. Coronary artery disease status post coronary artery bypass grafting. 4. Hyperlipidemia. 5. Diabetes mellitus. RECOMMENDATIONS: Resume home cardiac medications. Continue nicardipine drip for blood pressure control. Gradually wean off nicardipine as blood pressure improves. Goal blood pressure for today is less than 160/100 to prevent lowering blood pressure too rapidly. Monitor the patient on telemetry. Continue current cardiac medications otherwise including aspirin and statin. Evaluation of suspected seizure per Neurology. Treatment of hyperglycemia per primary. Thank you for this consult. We will continue to follow. Elizabeth Ferreira MD ABS/MODL /[id number]
[2019-09-18 20:27] VITALS: BP 187/71
[2019-09-18] MEDS ORDERED: SIMVASTATIN 40 MG TAB PO SCH (21:00)
--- NOTE | 2019-09-18 21:28 | NUR ---
SPOKE TO SYBIL RODRIGUEZ REGARDING BLOOD SUGAR CHECKS. MAINTAIN CURRENT ORDER Q2HR BLOOD SUGAR CHECKS.
[2019-09-18 21:38] LABS: ANION GAP 16.7 mmol/L (8-16); BLOOD UREA NITROGEN 16 mg/dL (7-26); BUN/CREATININE RATIO 17 (6-25); CALCIUM 8.2 mg/dL (8.4-10.2); CARBON DIOXIDE 20 mmol/L (22-29); CHLORIDE 104 mmol/L (98-107); CREATININE, SERUM 0.96 mg/dL (0.72-1.25); EST GLOMERULAR FILTRATION RATE > 60 ML/MIN (60-); GLUCOSE 247 mg/dL (74-118); MAGNESIUM 1.9 MG/DL (1.3-2.1); POTASSIUM 3.7 mmol/L (3.5-5.1); SODIUM 137 mmol/L (136-145)
[2019-09-19] VITALS: BP 161/51
--- NOTE | 2019-09-19 01:30 | NUR ---
CENTRAL LINE CARE PROVIDED. CHG BATH GIVEN.
[2019-09-19 01:39] LABS: ANION GAP 12.4 mmol/L (8-16); BLOOD UREA NITROGEN 14 mg/dL (7-26); BUN/CREATININE RATIO 15 (6-25); CALCIUM 8.4 mg/dL (8.4-10.2); CARBON DIOXIDE 25 mmol/L (22-29); CHLORIDE 104 mmol/L (98-107); CREATININE, SERUM 0.93 mg/dL (0.72-1.25); EST GLOMERULAR FILTRATION RATE > 60 ML/MIN (60-); GLUCOSE 213 mg/dL (74-118); POTASSIUM 3.4 mmol/L (3.5-5.1); SODIUM 138 mmol/L (136-145)
--- NOTE | 2019-09-19 02:16 | NUR ---
RECEIVED MRI RESULTS BY MD MORALES. INSTRUCTED TO NOTIFY MD ANSARI.
--- NOTE | 2019-09-19 02:21 | NUR ---
LEFT MESSAGE FOR MD ANSARI. AWAITING CALL BACK.
--- NOTE | 2019-09-19 02:25 | NUR ---
SPOKE TO MD ANSARI. NEW ORDERS RECEIVED TO TRANSFER TO ICU, AND BEGIN TRANSFER TO SURGICAL NEURO FACILITY. CONFIRM ORDERS WITH MD JOHNSON.
--- NOTE | 2019-09-19 02:27 | Diagnostic Imaging Report ---
History: Syncope, high blood pressure. Comparison studies: CT brain from earlier the same day. Technique: Sagittal T2; axial DWI, FLAIR, MPGR, T1, Coronal FLAIR. Intravenous contrast: None Findings: Scalp: Normal in signal . No masses . Bone marrow: Normal in signal intensity. Brain sulci: Appropriate for age. Ventricles: Normal in size . No hydrocephalus . Parenchyma: Focal area of cortical/subcortical T2/FLAIR hyperintensity represents edema without associated restricted diffusion in right precentral gyrus. There is focal linear FLAIR hyperintensity within the precentral sulci (image 27, series 3) which may represent subarachnoid hemorrhage or focal cortical venous thrombosis. Nonspecific bilateral frontoparietal T2/FLAIR hyperintense foci are likely related to small vessel ischemic changes. Chronic encephalomalacia in left medial occipital lobe involving the lingual gyrus, right inferior cerebellum, right paramedian aspect of frontal lobe/general of corpus callosum and left paramedian aspect of middle frontal gyrus from prior vascular insult. Chronic lacunar infarct in left putamen and right superior cerebellum. No mass. Suprasellar region: No abnormalities. Craniocervical junction: Patent foramen magnum. No Chiari malformation . Vessels: Normal flow-voids in the arteries and sinuses. IMPRESSION: 1. Focal, trace acute subarachnoid hemorrhage in right precentral sulcus with surrounding edema in right precentral gyrus. Differential consideration includes nontraumatic isolated acute subarachnoid hemorrhage related to known hypertensive emergency, cortical venous thrombosis,RCVS, leptomeningeal process (infection/inflammation) or underlying mass. 2. Multifocal chronic vascular insults as detailed above. 3. Mild supratentorial white matter microvascular ischemic changes. Findings were informed to ROE Garcia taking care of this patient and was told to inform the referring clinician at 2:00 AM on 09/19/2019. Signed by: Dr. Bisi Connelly M.D. on 09/19/2019 2:23 AM
--- NOTE | 2019-09-19 02:30 | NUR ---
SPOKE TO MD JOHNSON'S HOUSE SHORER SYBIL RODRIGUEZ CONCERNING MD ANSARI INSTRUCTION TO NOTIFY OF RECOMMENDATIONS FOR NEW ORDERS. SYBIL RODRIGUEZ NP AGREES WITH RECOMMENDED ORDERS. FILM CUTTER NOTIFIED.
[2019-09-19] MEDS ORDERED: SODIUM CHLORIDE 0.9% 100 ML ONE (03:20)
[2019-09-19] MEDS ORDERED: IOPAMIDOL 370 MG/ML 200 ML INFUS..BTL INJ ONE (03:21)
[2019-09-19 04:00] VITALS: BP 176/71
--- NOTE | 2019-09-19 04:24 | Diagnostic Imaging Report ---
History:Syncope, hypertensive emergency. , Comparison studies:CT head and MRI brain from 09/18/2019. Technique: Axial images were obtained from the skull base to the vertex. Coronal and sagittal images reconstructed from the axial data. Multi-planar and 3-D reconstructed images were obtained. Dose modulation, iterative reconstruction, and/or weight based adjustment of the mA/kV was utilized to reduce the radiation dose to as low as reasonably achievable. Intravenous contrast: 100 cc of Isovue 370. Findings: Internal carotid arteries: Severe atherosclerotic plaque in bilateral cavernous, clinoid and supraclinoid segment of the internal carotid arteries. 2.3 mm short segment of moderate stenosis of the distal M1 segment of left middle cerebral artery with the distal flow. Bilateral A1 segment of the anterior cerebral artery are patent. Focal short segment severe stenosis of A2 segment of bilateral anterior cerebral artery with distal flow. No discrete aneurysm or vascular malformation in the region of subarachnoid hemorrhage and edema in the right precentral gyrus. Vertebral arteries: Right vertebral artery is not visualized represents age indeterminate occlusion. Moderate focal hard atherosclerotic plaque of the V4 segment of left vertebral artery results in moderate focal stenosis with significant irregularity in the caliber of the distal vessel. Basilar artery: Independently formed by left vertebral artery. Irregularity in caliber of the basilar artery with mild stenosis in the proximal segment due to atherosclerosis. Posterior cerebral arteries: Diminutive bilateral posterior cerebral arteries but patent. Anatomical variants: Anterior communicating artery :Not visualized Posterior communicating arteries: Not visualized. Vertebral arteries: Dominant left vertebral artery. IMPRESSION: 1. 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 2. Severe atherosclerotic plaque in bilateral carotid siphon with short segment moderate stenosis of distal M1 segment of left middle cerebral artery with distal flow. 3. Focal short segment severe stenosis of A2 segment of bilateral anterior cerebral artery with distal flow due to atherosclerosis. 4. Moderate focal stenosis of left V4 segment of vertebral artery due to atherosclerotic plaque. 5. Mild focal stenosis in the proximal segment of the basilar artery with distal flow. 6. Diminutive and irregular caliber of bilateral posterior cerebral artery due to atherosclerosis. Signed by: Dr. Bisi Connelly M.D. on 09/19/2019 4:21 AM
--- NOTE | 2019-09-19 04:27 | NUR ---
CALL PLACED FOR MD ANSARI FOR PT TRANSFER TO CALL. LEFT MESSAGE WAITING FOR CALLBACK.
[2019-09-19 05:02] LABS: ANION GAP 14.3 mmol/L (8-16); BLOOD UREA NITROGEN 13 mg/dL (7-26); BUN/CREATININE RATIO 14 (6-25); CALCIUM 8.3 mg/dL (8.4-10.2); CARBON DIOXIDE 23 mmol/L (22-29); CHLORIDE 103 mmol/L (98-107); CREATININE, SERUM 0.93 mg/dL (0.72-1.25); EST GLOMERULAR FILTRATION RATE > 60 ML/MIN (60-); GLUCOSE 187 mg/dL (74-118); MAGNESIUM 1.9 MG/DL (1.3-2.1); POTASSIUM 3.3 mmol/L (3.5-5.1); SODIUM 137 mmol/L (136-145)
--- NOTE | 2019-09-19 05:11 | NUR ---
SPOKE WITH MD JOHNSON REGARDING PT TRANSFER BY AMBULANCE OR [facility]. OK TO TRANSFER BY AMBULANCE. NOTIFIED [employer] OFFICER.
[2019-09-19 06:02] LABS: BASOPHILS % 0.4 % (0.0-1.0); EOSINOPHILS # (AUTO) 0.2 (0.0-0.4); HEMATOCRIT 39.4 % (38.2-49.6); HEMOGLOBIN 12.5 g/dL (14.0-18.0); LYMPHOCYTES # (AUTO) 1.4 (1.0-3.2); LYMPHOCYTES % 18.9 % (18.0-39.1); MEAN CORPUSCULAR HEMOGLOBIN 24.8 pg (28-32); MEAN CORPUSCULAR HGB CONC 31.7 g/dL (31-35); MONOCYTES # (AUTO) 0.5 (0.2-0.8); MONOCYTES % 5.9 % (4.4-11.3); NEUTROPHILS # (AUTO) 5.5 (2.1-6.9); NEUTROPHILS % 72.5 % (38.7-80.0); PLATELET COUNT 167 x10e3/uL (140-360); RED BLOOD COUNT 5.05 x10e6/uL (4.3-5.7); RED CELL DISTRIBUTION WIDTH 14.5 % (11.7-14.4)
[2019-09-19 06:29] LABS: ALANINE AMINOTRANSFERASE 16 IU/L (0-55); ALBUMIN 2.7 g/dL (3.5-5.0); ALBUMIN/GLOBULIN RATIO 0.8 (0.8-2.0); ALKALINE PHOSPHATASE 72 IU/L (40-150); ANION GAP 13.3 mmol/L (8-16); BLOOD UREA NITROGEN 13 mg/dL (7-26); BUN/CREATININE RATIO 14 (6-25); CALCIUM 8.3 mg/dL (8.4-10.2); CARBON DIOXIDE 23 mmol/L (22-29); CHLORIDE 104 mmol/L (98-107); CHOL/HDL RATIO 5.4 (3.9-4.7); CHOLESTEROL 225 MD/DL (0-199); CREATININE, SERUM 0.94 mg/dL (0.72-1.25); EST GLOMERULAR FILTRATION RATE > 60 ML/MIN (60-); GLUCOSE 193 mg/dL (74-118); HDL CHOLESTEROL 42 MG/DL (40-60); LDL CHOLESTEROL 159 MG/DL (60-130); POTASSIUM 3.3 mmol/L (3.5-5.1); SODIUM 137 mmol/L (136-145); TRIGLYCERIDES 120 MG/DL (0-149)
[2019-09-19 06:30] LABS: THYROID STIMULATING HORMONE 1.556 uIU/mL (0.350-4.940)
--- NOTE | 2019-09-19 07:00 | NUR ---
[facility] PROVIDED VIA [facility] [employer]
--- NOTE | 2019-09-19 07:00 | NUR ---
received bedside report. pt is alert resting in bed, no s/s of distress. neuro checks every hour until pt transfers to [facility], next check at 0740. ambulance has been called and report has been given to nurse
[2019-09-19] MEDS: LEVETIRACETAM 500MG/5ML VIAL 500 MG in SODIUM CHLORIDE 0.9% 100 ML 100 ML IV SCH (07:08)
--- NOTE | 2019-09-19 07:18 | NUR ---
REPORT CALLED TO SUSANA BANERJEE RN AT [facility] FOR PT TRANSFERRING TO ROOM 430.
[2019-09-19 07:58] VITALS: BP 166/65
[2019-09-19] MEDS ORDERED: ASPIRIN 325 MG TAB PO SCH (09:00)
[2019-09-19] MEDS ORDERED: LOSARTAN POTASSIUM 100 MG TAB PO SCH (09:00)
[2019-09-19] MEDS ORDERED: HYDROCHLOROTHIAZIDE 25 MG TAB PO SCH (09:00)
--- NOTE | 2019-09-19 13:50 | Progress Note ---
DATE: 09/19/2019 SUBJECTIVE: The patient was transferred to the ICU overnight as his MRI brain shows right parietal hemorrhagic lesion with edema. Neurologically, he is just saying no known seizures. REVIEW OF SYSTEMS: A complete 14-point review of system is unremarkable otherwise. MEDICATIONS: Per medication list. A total of 106 minutes were spent today on this critically ill patient with seizures and right parietal hemorrhagic mass including the multiple calls for coordination of care and transfer to a facility with neurosurgical support as well as nursing staff and ICU staff. PHYSICAL EXAMINATION: VITAL SIGNS: Temperature 98, respiratory rate 16, pulse rate 80, and blood pressure 121/60. HEAD AND NECK: No meningeal signs. LUNGS: Fair air entry. ABDOMEN: Soft. EXTREMITIES: Pulses present. Edema not present. NEUROLOGIC: Alert. Follows commands. Mild left visual field defect noted. Decreased pinprick on the left side. Mild left fine motor movements noted. Gait abnormal tandem gait. IMAGING: MRI brain as above. ASSESSMENT: New onset seizure secondary to right parietal hemorrhagic lesion with edema. The patient needs neurosurgical evaluation and followup, which is not available here. Will be arranged for transfer to a facility with neurosurgical support. We will start and maintain him on Keppra for now SCDs for VTE prophylaxis. Case discussed in detail. Toni De Leon MD AM/EMMA /[id number]
--- NOTE | 2019-09-19 14:24 | Electroencephalogram ---
DATE OF STUDY: 09/18/2019 REQUESTING PHYSICIAN: PROCEDURE: EEG. TECHNIQUE: An 18 channels of 20-minute EEG recording utilizing international 10/20 system done today. EEG data were digitally acquired and analyzed. This is an awake and asleep EEG. BACKGROUND ACTIVITY: Background rhythm consists of 9 hertz rhythmic waveforms noted above both posterior quadrants. Intermixed with this mild amount of low to medium voltage polymorphic 4-6 hertz waveforms noted in the right parasagittal region. IMPRESSION: This EEG is abnormal showing a right parasagittal abnormality. No electrographic seizures recorded. This is a sleep and awake EEG. Toni De Leon MD AM/MODJerod /[id number]
--- NOTE | 2019-09-19 17:56 | Consultation ---
DATE OF CONSULTATION: 09/18/2019 REASON FOR REFERRAL: Evaluation for seizures. HISTORY OF PRESENT ILLNESS: A 49-year-old male with history of hypertension and diabetes, admitted with uncontrolled high blood pressure after having an episode of confusion and potential seizure and convulsion activity. The patient was found to be very hyperglycemic, so he was started on insulin drip and is on IV fluids. He is at this time with no definite neurological complaint. PAST MEDICAL HISTORY: Hypertension, diabetes. The patient denies any previous history of seizures. 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 PAST SURGICAL HISTORY: Coronary artery bypass. FAMILY HISTORY: Coronary artery disease. SOCIAL HISTORY: No alcohol or drug abuse. No smoke abuse. ALLERGIES: NO KNOWN DRUG ALLERGIES. A total of 106 minutes were spent today on this critically ill patient with seizures. Case discussed in detail with the patient and family, referring physician, other staff. REVIEW OF SYSTEMS: A 14-point review of system is negative other than what is mentioned above. PHYSICAL EXAMINATION: VITAL SIGNS: Temperature 98.1, respiratory rate 16, pulse rate 80, blood pressure 144/60, saturation is 98%. HEAD AND NECK: No meningeal signs. LUNGS: Fair air entry. ABDOMEN: Soft. EXTREMITIES: No edema. NEUROLOGIC: Alert. Follows commands, questionable left visual field defect noted. Pupils are equal, reactive bilaterally to light. Mild left facial asymmetry noted. Sensation normal on the face. Decreased pinprick noted on the left side of the body. Deep tendon reflexes are 3 on the left, 2 on the right. Plantars are flexor on the right, extensor on the left. Gait abnormal tandem gait. Minimal fine motor movement abnormality on the left noted. CT scan of the head shows no acute changes. X-ray with no acute disease. LABORATORY DATA: Show a white cell count of 10, blood sugar was 314. ASSESSMENT: 1. New onset seizure with findings suggestive of potentially right cortical lesion. We will start him on Keppra 750 b.i.d. and check MRI of the brain with and without contrast. We might have to also re-image his vasculature with CTAs of head and neck. Further recommendations will depend on the above. We will also check an EEG. 2. Hyperglycemia. 3. Acidosis. 4. Coronary artery disease. 5. History of severe intracranial atherosclerotic disease as well as coronary artery disease. Recommend management of hyperglycemia services. Keppra 750 b.i.d., VTE prophylaxis with SCDs. High dose Lipitor with target LDL less than 70. The patient was counseled that he should not drive or operate any machinery, and avoid any situations that compromise his well-being because of that. He understands [place] law as far as no driving for at least six months after the last seizure. Further recommendation will depend on above. In the meantime, we will keep him on neuro checks every 1 hour and seizure precautions. Toni De Leon MD AM/EMMA /[id number]
== END 2019-09-19 08:12 | disposition short-term general hospital (02) | DRG 64 ==
LOC: ER 05:30 → ERHOLD 07:44 → MED/SURG 20:23
PROVIDERS: ADMIT Internal Medicine; ATTEND Internal Medicine
PROC: 02HV33Z Insertion of Infusion Device into Superior Vena Cava, Percutaneous Approach (ICD-10-PCS; principal; 2019-09-18)
PROC: B548ZZA Ultrasonography of Superior Vena Cava, Guidance (ICD-10-PCS; 2019-09-18)
DX: I60.51 Nontraumatic subarachnoid hemorrhage from right vertebral artery (principal); E11.10 Type 2 diabetes mellitus with ketoacidosis without coma; I16.1 Hypertensive emergency; E87.2 Acidosis; G40.801 Other epilepsy, not intractable, with status epilepticus; I67.4 Hypertensive encephalopathy; N17.9 Acute kidney failure, unspecified; E11.65 Type 2 diabetes mellitus with hyperglycemia; E78.5 Hyperlipidemia, unspecified; R79.89 Other specified abnormal findings of blood chemistry; I10 Essential (primary) hypertension; I65.23 Occlusion and stenosis of bilateral carotid arteries; I25.10 Atherosclerotic heart disease of native coronary artery without angina pectoris; Z95.1 Presence of aortocoronary bypass graft; Z89.421 Acquired absence of other right toe(s); Z86.73 Personal history of transient ischemic attack (TIA), and cerebral infarction without residual deficits; Z83.3 Family history of diabetes mellitus; Z82.49 Family history of ischemic heart disease and other diseases of the circulatory system; E66.01 Morbid (severe) obesity due to excess calories; L97.511 Non-pressure chronic ulcer of other part of right foot limited to breakdown of skin; E11.621 Type 2 diabetes mellitus with foot ulcer
CPT/HCPCS: 36415; 36555; 51700; 70450; 70496; 70551; 71045; 80048; 80053; 80061; 80307; 80320; 80329; 81001; 82550; 82553; 82948; 83036; 83518; 83690; 83735; 83880; 84443; 84484; 85025; 87040; 87070; 87400; 87635; 93005; 93306; 99285; J0360; J1817; J2060; J7030; J7050; Q9967

== ENCOUNTER 2020-01-20 09:05 | Inpatient (IN) | payer OTHER ==
[~2020-01-20] VITALS: Ht 177.8 cm; Wt 112.7 kg
[2020-01-20] VITALS (14 sets, daily range): BP systolic 135–188; BP diastolic 46–143
[2020-01-20] MEDS ORDERED: FUROSEMIDE INJ 10 MG/ML 4 ML VIAL IV ONE (09:30)
[2020-01-20] MEDS ORDERED: NITROGLYCERIN 2% OINT 1 GM PKT TOP ONE (09:30)
[2020-01-20 09:50] LABS: BASOPHILS % 0.2 % (0.0-1.0); EOSINOPHILS % 0.4 % (0.0-6.0); HEMATOCRIT 36.2 % (38.2-49.6); HEMOGLOBIN 11.4 g/dL (14.0-18.0); LYMPHOCYTES # (AUTO) 0.9 (1.0-3.2); LYMPHOCYTES % 11.5 % (18.0-39.1); MEAN CORPUSCULAR HEMOGLOBIN 25.8 pg (28-32); MEAN CORPUSCULAR HGB CONC 31.5 g/dL (31-35); MEAN CORPUSCULAR VOLUME 81.9 fL (81-99); MONOCYTES # (AUTO) 0.5 (0.2-0.8); NEUTROPHILS # (AUTO) 6.6 (2.1-6.9); NEUTROPHILS % 81.5 % (38.7-80.0); PLATELET COUNT 154 x10e3/uL (140-360); RED BLOOD COUNT 4.42 x10e6/uL (4.3-5.7); RED CELL DISTRIBUTION WIDTH 15.9 % (11.7-14.4)
[2020-01-20 09:57] LABS: INR 1.21; PROTHROMBIN TIME 15.9 seconds (11.9-14.5)
[2020-01-20] MEDS ORDERED: FUROSEMIDE INJ 10 MG/ML 2 ML VIAL ONE (10:00)
[2020-01-20 10:04] LABS: ALBUMIN 3.3 g/dL (3.5-5.0); ALBUMIN/GLOBULIN RATIO 0.8 (0.8-2.0); ANION GAP 15.3 mmol/L (8-16); CALCIUM 8.9 mg/dL (8.4-10.2); CREATININE, SERUM 1.29 mg/dL (0.72-1.25); POTASSIUM 4.3 mmol/L (3.5-5.1)
[2020-01-20 10:10] LABS: CREATINE KINASE MB 6.6 ng/mL (0-5.0)
[2020-01-20] MEDS ORDERED: ASPIRIN 81 MG CHEW TAB PO ONE ×2 (10:15→15:45)
[2020-01-20] MEDS ORDERED: ONDANSETRON HCL INJ 2MG/ML 2ML 2 MG/ML VIAL IV PRN (10:30)
[2020-01-20] MEDS ORDERED: MORPHINE SULFATE 2 MG/ML SYR 1ML IV PRN (10:30)
[2020-01-20] MEDS ORDERED: CLOPIDOGREL BISULFATE 75 MG TAB PO ONE (10:30)
[2020-01-20] MEDS ORDERED: METOPROLOL TARTRATE 25 MG TAB PO SCH (10:30)
[2020-01-20] MEDS: ENOXAPARIN SODIUM INJ 100 MG/ML SYR SC SCH ×2 (10:54→22:16)
[2020-01-20 11:58] LABS: CREATINE KINASE MB 6.1 ng/mL (0-5.0)
[2020-01-20] MEDS: NITROGLYCERIN 2% OINT 1 GM PKT TOP SCH ×3 (12:00→23:00)
[2020-01-20 16:26] LABS: CREATINE KINASE MB 6.4 ng/mL (0-5.0)
[2020-01-20] MEDS ORDERED: DEXTROSE 50% SYRINGE 50 ML IV PRN (21:00)
[2020-01-20] MEDS: SIMVASTATIN 40 MG TAB PO SCH (21:29)
[2020-01-20] MEDS: FUROSEMIDE INJ 10 MG/ML 4 ML VIAL IV SCH (21:29)
[2020-01-20] MEDS: FAMOTIDINE 20 MG TAB PO SCH (21:29)
[2020-01-20] MEDS: LOSARTAN POTASSIUM 100 MG TAB PO SCH (22:16)
[2020-01-20] MEDS: INSULIN REGULAR, HUMAN 100 UNIT/1 ML 3ML VIAL SQ SCH (22:25)
[2020-01-21] VITALS (18 sets, daily range): BP systolic 101–152; BP diastolic 32–90
[2020-01-21 05:21] LABS: BASOPHILS % 0.5 % (0.0-1.0); EOSINOPHILS # (AUTO) 0.1 (0.0-0.4); HEMATOCRIT 33.6 % (38.2-49.6); HEMOGLOBIN 10.4 g/dL (14.0-18.0); LYMPHOCYTES # (AUTO) 1.4 (1.0-3.2); LYMPHOCYTES % 15.7 % (18.0-39.1); MEAN CORPUSCULAR HEMOGLOBIN 26.3 pg (28-32); MEAN CORPUSCULAR VOLUME 84.8 fL (81-99); MONOCYTES # (AUTO) 0.8 (0.2-0.8); MONOCYTES % 9.1 % (4.4-11.3); NEUTROPHILS # (AUTO) 6.3 (2.1-6.9); NEUTROPHILS % 73.4 % (38.7-80.0); PLATELET COUNT 156 x10e3/uL (140-360); RED BLOOD COUNT 3.96 x10e6/uL (4.3-5.7); RED CELL DISTRIBUTION WIDTH 15.9 % (11.7-14.4)
[2020-01-21] MEDS: NITROGLYCERIN 2% OINT 1 GM PKT TOP SCH ×3 (06:00→16:56)
[2020-01-21 06:39] LABS: CHOL/HDL RATIO 3.3 (3.9-4.7)
[2020-01-21 07:28] LABS: ALANINE AMINOTRANSFERASE 34 IU/L (0-55); ALBUMIN/GLOBULIN RATIO 0.8 (0.8-2.0); ALKALINE PHOSPHATASE 124 IU/L (40-150); ANION GAP 15.1 mmol/L (8-16); BLOOD UREA NITROGEN 33 mg/dL (7-26); BUN/CREATININE RATIO 29 (6-25); CALCIUM 8.9 mg/dL (8.4-10.2); CARBON DIOXIDE 23 mmol/L (22-29); CHLORIDE 105 mmol/L (98-107); CREATINE KINASE 186 IU/L (30-200); CREATININE, SERUM 1.13 mg/dL (0.72-1.25); EST GLOMERULAR FILTRATION RATE > 60 ML/MIN (60-); GLUCOSE 130 mg/dL (74-118); POTASSIUM 4.1 mmol/L (3.5-5.1); SODIUM 139 mmol/L (136-145)
[2020-01-21] MEDS: INSULIN REGULAR, HUMAN 100 UNIT/1 ML 3ML VIAL SQ SCH ×4 (07:30→20:48)
[2020-01-21] MEDS ORDERED: CARVEDILOL 12.5 MG TAB PO SCH ×2 (08:00→17:00)
[2020-01-21] MEDS: FUROSEMIDE INJ 10 MG/ML 4 ML VIAL IV SCH ×2 (08:13→20:17)
[2020-01-21] MEDS: FAMOTIDINE 20 MG TAB PO SCH ×2 (08:16→16:55)
[2020-01-21] MEDS: ASPIRIN 81 MG ENTERIC COATED PO SCH (08:17)
[2020-01-21] MEDS: CLOPIDOGREL BISULFATE 75 MG TAB PO SCH (08:17)
[2020-01-21] MEDS: ENOXAPARIN SODIUM INJ 100 MG/ML SYR SC SCH ×2 (10:37→20:17)
[2020-01-21] MEDS: CARVEDILOL 3.125 MG TAB PO SCH (17:04)
[2020-01-21] MEDS: SIMVASTATIN 40 MG TAB PO SCH (20:17)
[2020-01-21] MEDS ORDERED: MELATONIN 5 MG TABLET PO PRN (20:30)
[2020-01-22] VITALS (8 sets, daily range): BP systolic 111–152; BP diastolic 41–80
[2020-01-22] MEDS: NITROGLYCERIN 2% OINT 1 GM PKT TOP SCH ×4 (00:29→18:08)
[2020-01-22 05:29] LABS: BASOPHILS % 0.4 % (0.0-1.0); EOSINOPHILS # (AUTO) 0.1 (0.0-0.4); EOSINOPHILS % 1.7 % (0.0-6.0); HEMATOCRIT 36.7 % (38.2-49.6); HEMOGLOBIN 11.3 g/dL (14.0-18.0); LYMPHOCYTES # (AUTO) 1.4 (1.0-3.2); LYMPHOCYTES % 20.8 % (18.0-39.1); MEAN CORPUSCULAR HEMOGLOBIN 25.6 pg (28-32); MEAN CORPUSCULAR HGB CONC 30.8 g/dL (31-35); MONOCYTES # (AUTO) 0.4 (0.2-0.8); MONOCYTES % 5.7 % (4.4-11.3); NEUTROPHILS # (AUTO) 4.9 (2.1-6.9); NEUTROPHILS % 71.1 % (38.7-80.0); PLATELET COUNT 178 x10e3/uL (140-360); RED BLOOD COUNT 4.42 x10e6/uL (4.3-5.7); RED CELL DISTRIBUTION WIDTH 15.9 % (11.7-14.4)
[2020-01-22 05:54] LABS: ALBUMIN 3.3 g/dL (3.5-5.0); ALBUMIN/GLOBULIN RATIO 0.8 (0.8-2.0); ANION GAP 15.2 mmol/L (8-16); CREATININE, SERUM 1.45 mg/dL (0.72-1.25); POTASSIUM 4.2 mmol/L (3.5-5.1)
[2020-01-22 06:06] LABS: CREATINE KINASE MB 3.9 ng/mL (0-5.0)
[2020-01-22 06:55] LABS: INR 1.16; PROTHROMBIN TIME 15.4 seconds (11.9-14.5)
[2020-01-22] MEDS: FAMOTIDINE 20 MG TAB PO SCH ×2 (07:29→16:30)
[2020-01-22] MEDS: INSULIN REGULAR, HUMAN 100 UNIT/1 ML 3ML VIAL SQ SCH ×4 (07:29→21:00)
[2020-01-22] MEDS: ASPIRIN 81 MG ENTERIC COATED PO SCH (09:03)
[2020-01-22] MEDS: CLOPIDOGREL BISULFATE 75 MG TAB PO SCH (09:03)
[2020-01-22] MEDS: LOSARTAN POTASSIUM 100 MG TAB PO SCH (09:03)
[2020-01-22] MEDS: FUROSEMIDE INJ 10 MG/ML 4 ML VIAL IV SCH ×2 (09:03→22:25)
[2020-01-22] MEDS: CARVEDILOL 3.125 MG TAB PO SCH ×2 (09:03→17:00)
[2020-01-22] MEDS: ENOXAPARIN SODIUM INJ 100 MG/ML SYR SC SCH ×2 (10:15→22:26)
[2020-01-22] MEDS ORDERED: HEPARIN SOD/SOD CHLORIDE 2,000 ML ONE (11:30)
[2020-01-22] MEDS ORDERED: LIDOCAINE HCL 2% LOCAL 20 ML VIAL ONE (11:30)
[2020-01-22] MEDS ORDERED: IOPAMIDOL 370 MG/ML 200 ML INFUS..BTL INJ ONE (11:30)
[2020-01-22] MEDS ORDERED: FENTANYL CITRATE/PF 100MCG/2 ML INJ ONE (11:30)
[2020-01-22] MEDS ORDERED: MIDAZOLAM HCL 2 MG/2 ML VIAL ONE (11:30)
[2020-01-22] MEDS ORDERED: SODIUM CHLORIDE 0.9% 1000ML 1,000 ML ONE (11:30)
[2020-01-22] MEDS ORDERED: ASPIRIN 325 MG TAB ONE (17:13)
[2020-01-22] MEDS ORDERED: CLOPIDOGREL BISULFATE 75 MG TAB ONE (17:13)
[2020-01-22] MEDS: SIMVASTATIN 40 MG TAB PO SCH (22:25)
[2020-01-23] VITALS: BP 111/50
[2020-01-23] MEDS: NITROGLYCERIN 2% OINT 1 GM PKT TOP SCH ×4 (00:29→17:26)
[2020-01-23 04:00] VITALS: BP 144/54
[2020-01-23 04:55] LABS: BASOPHILS % 0.3 % (0.0-1.0); EOSINOPHILS # (AUTO) 0.1 (0.0-0.4); EOSINOPHILS % 1.2 % (0.0-6.0); HEMATOCRIT 31.5 % (38.2-49.6); HEMOGLOBIN 10.1 g/dL (14.0-18.0); LYMPHOCYTES # (AUTO) 0.7 (1.0-3.2); LYMPHOCYTES % 11.9 % (18.0-39.1); MEAN CORPUSCULAR HEMOGLOBIN 26.6 pg (28-32); MEAN CORPUSCULAR HGB CONC 32.1 g/dL (31-35); MEAN CORPUSCULAR VOLUME 83.1 fL (81-99); MONOCYTES # (AUTO) 0.5 (0.2-0.8); MONOCYTES % 7.4 % (4.4-11.3); NEUTROPHILS # (AUTO) 4.8 (2.1-6.9); NEUTROPHILS % 78.9 % (38.7-80.0); PLATELET COUNT 175 x10e3/uL (140-360); RED BLOOD COUNT 3.79 x10e6/uL (4.3-5.7)
[2020-01-23 05:18] LABS: ALANINE AMINOTRANSFERASE 29 IU/L (0-55); ALBUMIN/GLOBULIN RATIO 0.8 (0.8-2.0); ALKALINE PHOSPHATASE 115 IU/L (40-150); ANION GAP 13.7 mmol/L (8-16); BLOOD UREA NITROGEN 35 mg/dL (7-26); BUN/CREATININE RATIO 28 (6-25); CALCIUM 8.7 mg/dL (8.4-10.2); CARBON DIOXIDE 28 mmol/L (22-29); CHLORIDE 101 mmol/L (98-107); CREATININE, SERUM 1.25 mg/dL (0.72-1.25); EST GLOMERULAR FILTRATION RATE > 60 ML/MIN (60-); GLUCOSE 214 mg/dL (74-118); MAGNESIUM 1.7 MG/DL (1.3-2.1); POTASSIUM 3.7 mmol/L (3.5-5.1); SODIUM 139 mmol/L (136-145)
[2020-01-23] MEDS: INSULIN REGULAR, HUMAN 100 UNIT/1 ML 3ML VIAL SQ SCH ×3 (07:38→16:39)
[2020-01-23] MEDS: FAMOTIDINE 20 MG TAB PO SCH ×2 (07:42→16:33)
[2020-01-23 08:00] VITALS: BP 121/47
[2020-01-23] MEDS: FUROSEMIDE INJ 10 MG/ML 4 ML VIAL IV SCH (08:08)
[2020-01-23] MEDS: CARVEDILOL 3.125 MG TAB PO SCH ×2 (08:08→17:26)
[2020-01-23] MEDS: ASPIRIN 81 MG ENTERIC COATED PO SCH (08:08)
[2020-01-23] MEDS: LOSARTAN POTASSIUM 100 MG TAB PO SCH (08:09)
[2020-01-23] MEDS: CLOPIDOGREL BISULFATE 75 MG TAB PO SCH (08:10)
[2020-01-23 09:00] VITALS: BP 121/42
[2020-01-23] MEDS: ENOXAPARIN SODIUM INJ 100 MG/ML SYR SC SCH (10:15)
[2020-01-23 12:00] VITALS: BP 128/57
[2020-01-23] MEDS ORDERED: ASPIRIN EC81 MG PO (12:04)
[2020-01-23] MEDS ORDERED: PLAVIX75 MG PO (12:04)
[2020-01-23] MEDS ORDERED: COREG3.125 MG PO (12:04)
[2020-01-23] MEDS ORDERED: ONDANSETRON HCL 4 MG ORAL DISINTEGRATING TAB PO PRN (12:30)
[2020-01-23 16:00] VITALS: BP 108/56
[2020-01-23] MEDS ORDERED: LASIX80 MG PO (18:48)
[2020-01-23] MEDS ORDERED: K DUR10 MEQ PO (18:48)
[2020-01-23] MEDS ORDERED: FUROSEMIDE40 MG PO (18:48)
== END 2020-01-23 20:29 | disposition home or self-care (01) | DRG 248 ==
LOC: ER 09:12 → ERHOLD 10:32 → ICU 16:08 → IMCU 01-21 14:59
PROVIDERS: ADMIT Internal Medicine; ATTEND Internal Medicine
PROC: 02703DZ Dilation of Coronary Artery, One Artery with Intraluminal Device, Percutaneous Approach (ICD-10-PCS; principal; 2020-01-22)
PROC: 4A023N7 Measurement of Cardiac Sampling and Pressure, Left Heart, Percutaneous Approach (ICD-10-PCS; 2020-01-22)
PROC: B2111ZZ Fluoroscopy of Multiple Coronary Arteries using Low Osmolar Contrast (ICD-10-PCS; 2020-01-22)
PROC: B2131ZZ Fluoroscopy of Multiple Coronary Artery Bypass Grafts using Low Osmolar Contrast (ICD-10-PCS; 2020-01-22)
DX: I21.4 Non-ST elevation (NSTEMI) myocardial infarction (principal); I50.43 Acute on chronic combined systolic (congestive) and diastolic (congestive) heart failure; J96.01 Acute respiratory failure with hypoxia; I11.0 Hypertensive heart disease with heart failure; I25.10 Atherosclerotic heart disease of native coronary artery without angina pectoris; Z95.1 Presence of aortocoronary bypass graft; Z89.421 Acquired absence of other right toe(s); Z11.59 Encounter for screening for other viral diseases
CPT/HCPCS: 36415; 71045; 80053; 80061; 82550; 82553; 82948; 83735; 83880; 84443; 84484; 85025; 85610; 85730; 92928; 93005; 93306; 93459; 96372; 99152; 99153; 99284; C1725; C1760; C1769; C1874; J1650; J1940; J2001; J2250; J3010; J7030; Q9967; U0002

== ENCOUNTER 2020-07-16 16:17 | Inpatient (IN) | payer OTHER ==
[~2020-07-16] VITALS: Ht 175.3 cm; Wt 144.2 kg
[~2020-07-16 16:17] MED LIST changes: +ASPIRIN EC81 MG PO; +COREG3.125 MG PO; +K DUR10 MEQ PO; +LASIX80 MG PO; +PLAVIX75 MG PO
[2020-07-16] MEDS ORDERED: FUROSEMIDE INJ 10 MG/ML 4 ML VIAL IV ONE (16:30)
[2020-07-16 16:45] LABS: BASOPHILS # (AUTO) 0.1 (0.0-0.1); BASOPHILS % 0.6 % (0.0-1.0); EOSINOPHILS # (AUTO) 0.6 (0.0-0.4); EOSINOPHILS % 6.8 % (0.0-6.0); HEMATOCRIT 30.9 % (38.2-49.6); HEMOGLOBIN 8.8 g/dL (14.0-18.0); LYMPHOCYTES # (AUTO) 0.9 (1.0-3.2); LYMPHOCYTES % 10.8 % (18.0-39.1); MEAN CORPUSCULAR HEMOGLOBIN 23.4 pg (28-32); MEAN CORPUSCULAR HGB CONC 28.5 g/dL (31-35); MEAN CORPUSCULAR VOLUME 82.2 fL (81-99); MONOCYTES # (AUTO) 0.8 (0.2-0.8); MONOCYTES % 10.3 % (4.4-11.3); NEUTROPHILS # (AUTO) 5.8 (2.1-6.9); NEUTROPHILS % 71.1 % (38.7-80.0); PLATELET COUNT 242 x10e3/uL (140-360); RED BLOOD COUNT 3.76 x10e6/uL (4.3-5.7); RED CELL DISTRIBUTION WIDTH 20.1 % (11.7-14.4)
[2020-07-16] MEDS ORDERED: NITROGLYCERIN 2% OINT 1 GM PKT TOP ONE (16:45)
[2020-07-16 17:05] LABS: ALBUMIN 2.1 g/dL (3.5-5.0); ALBUMIN/GLOBULIN RATIO 0.4 (0.8-2.0); CALCIUM 8.2 mg/dL (8.4-10.2); CREATININE, SERUM 2.32 mg/dL (0.72-1.25)
[2020-07-16] MEDS ORDERED: INSULIN REGULAR, HUMAN 100 UNIT/1 ML 3ML VIAL SQ PRN (22:45)
[2020-07-16] MEDS ORDERED: DEXTROSE 50% SYRINGE 50 ML IV PRN (22:45)
[2020-07-16 23:15] VITALS: BP 171/75
[2020-07-17] VITALS (10 sets, daily range): BP systolic 131–171; BP diastolic 51–98
[2020-07-17 02:22] LABS: CREATINE KINASE MB 4.8 ng/mL (0-5.0)
[2020-07-17 07:12] LABS: BASOPHILS # (AUTO) 0.1 (0.0-0.1); BASOPHILS % 0.7 % (0.0-1.0); EOSINOPHILS # (AUTO) 0.2 (0.0-0.4); EOSINOPHILS % 2.8 % (0.0-6.0); HEMATOCRIT 31.4 % (38.2-49.6); HEMOGLOBIN 8.8 g/dL (14.0-18.0); LYMPHOCYTES # (AUTO) 0.6 (1.0-3.2); LYMPHOCYTES % 7.6 % (18.0-39.1); MEAN CORPUSCULAR HEMOGLOBIN 23.2 pg (28-32); MEAN CORPUSCULAR VOLUME 82.6 fL (81-99); MONOCYTES # (AUTO) 0.9 (0.2-0.8); MONOCYTES % 10.1 % (4.4-11.3); NEUTROPHILS # (AUTO) 6.6 (2.1-6.9); NEUTROPHILS % 78.4 % (38.7-80.0); PLATELET COUNT 227 x10e3/uL (140-360); RED CELL DISTRIBUTION WIDTH 20.2 % (11.7-14.4)
[2020-07-17] MEDS ORDERED: INSULIN REGULAR, HUMAN 100 UNIT/1 ML 3ML VIAL SQ SCH (07:30)
[2020-07-17 07:31] LABS: ALBUMIN 2.2 g/dL (3.5-5.0); ALBUMIN/GLOBULIN RATIO 0.5 (0.8-2.0); ANION GAP 17.4 mmol/L (8-16); CALCIUM 8.3 mg/dL (8.4-10.2); CREATININE, SERUM 2.19 mg/dL (0.72-1.25); POTASSIUM 3.4 mmol/L (3.5-5.1)
[2020-07-17 07:57] LABS: CREATINE KINASE MB 5.5 ng/mL (0-5.0)
[2020-07-17] MEDS: FUROSEMIDE INJ 10 MG/ML 4 ML VIAL IV SCH ×2 (09:06→16:44)
[2020-07-17] MEDS ORDERED: DEXTROSE 50% SYRINGE 50 ML IV PRN (13:00)
[2020-07-17] MEDS ORDERED: ACETAMINOPHEN 325 MG TAB PO PRN (14:30)
[2020-07-17] MEDS: CARVEDILOL 3.125 MG TAB PO SCH (16:44)
[2020-07-17] MEDS: INSULIN LISPRO 100 UNIT/1 ML 3ML VIAL SQ SCH (16:59)
[2020-07-17] MEDS: INSULIN REGULAR, HUMAN 100 UNIT/1 ML 3ML VIAL SQ SCH ×2 (17:00→21:00)
[2020-07-17] MEDS: SIMVASTATIN 40 MG TAB PO SCH (21:00)
[2020-07-18] VITALS (7 sets, daily range): BP systolic 113–155; BP diastolic 50–84
[2020-07-18 06:36] LABS: ANION GAP 11.5 mmol/L (8-16); CALCIUM 8.1 mg/dL (8.4-10.2); CREATININE, SERUM 2.35 mg/dL (0.72-1.25); POTASSIUM 3.5 mmol/L (3.5-5.1)
[2020-07-18] MEDS: INSULIN REGULAR, HUMAN 100 UNIT/1 ML 3ML VIAL SQ SCH ×4 (07:30→21:55)
[2020-07-18] MEDS: INSULIN LISPRO 100 UNIT/1 ML 3ML VIAL SQ SCH ×3 (07:30→16:27)
[2020-07-18] MEDS: CLOPIDOGREL BISULFATE 75 MG TAB PO SCH (09:43)
[2020-07-18] MEDS: LOSARTAN POTASSIUM 100 MG TAB PO SCH (09:43)
[2020-07-18] MEDS: FUROSEMIDE INJ 10 MG/ML 4 ML VIAL IV SCH ×2 (09:43→16:26)
[2020-07-18] MEDS: ASPIRIN 81 MG ENTERIC COATED PO SCH (09:43)
[2020-07-18] MEDS: CARVEDILOL 3.125 MG TAB PO SCH ×2 (09:43→16:26)
[2020-07-18 14:17] LABS: CLARITY,URINE CLEAR (CLEAR); COLOR,URINE YELLOW (YELLOW); KETONES,URINE NEGATIVE (NEGATIVE); LEUKOCYTE ESTERASE ,URINE NEGATIVE (NEGATIVE); NITRITE,URINE NEGATIVE (NEGATIVE); PROTEIN,URINE DIPSTICK 2+ (NEGATIVE); URINE UROBILINOGEN 0.2 mg/dL (0.2 - 1)
[2020-07-18 14:26] LABS: WBC,URINE (MAN) 0-5 /HPF (0-5)
[2020-07-18 14:27] LABS: AMORPHOUS SEDIMENT,URINE MODERATE (FEW); MUCUS,URINE FEW (RARE)
[2020-07-18] MEDS: SIMVASTATIN 40 MG TAB PO SCH (22:43)
[2020-07-19] VITALS (7 sets, daily range): BP systolic 90–146; BP diastolic 35–59
[2020-07-19 07:00] LABS: ANION GAP 13.6 mmol/L (8-16); CALCIUM 7.8 mg/dL (8.4-10.2); CREATININE, SERUM 2.38 mg/dL (0.72-1.25); POTASSIUM 3.6 mmol/L (3.5-5.1)
[2020-07-19] MEDS: INSULIN LISPRO 100 UNIT/1 ML 3ML VIAL SQ SCH ×3 (07:30→16:30)
[2020-07-19] MEDS: INSULIN REGULAR, HUMAN 100 UNIT/1 ML 3ML VIAL SQ SCH ×4 (07:30→21:00)
[2020-07-19] MEDS: CARVEDILOL 3.125 MG TAB PO SCH ×2 (08:00→17:00)
[2020-07-19] MEDS: LOSARTAN POTASSIUM 100 MG TAB PO SCH (09:00)
[2020-07-19] MEDS: CLOPIDOGREL BISULFATE 75 MG TAB PO SCH (09:09)
[2020-07-19] MEDS: ASPIRIN 81 MG ENTERIC COATED PO SCH (09:09)
[2020-07-19] MEDS: FUROSEMIDE INJ 10 MG/ML 4 ML VIAL IV SCH ×2 (09:09→17:27)
[2020-07-19 14:48] LABS: TOTAL PROTEIN 24HR, URINE 1322.1 mg/24hr (50-100); TOTAL PROTEIN, URINE 101.7 mg/dL (1-14)
[2020-07-19 22:07] LABS: ALPHA 2 GLOBULIN URINE PEP 15.3 % (.)
[2020-07-19] MEDS: SIMVASTATIN 40 MG TAB PO SCH (23:02)
[2020-07-20] VITALS (9 sets, daily range): BP systolic 92–145; BP diastolic 38–73
[2020-07-20] MEDS: INSULIN LISPRO 100 UNIT/1 ML 3ML VIAL SQ SCH ×3 (07:30→16:30)
[2020-07-20] MEDS: INSULIN REGULAR, HUMAN 100 UNIT/1 ML 3ML VIAL SQ SCH ×4 (07:30→20:28)
[2020-07-20] MEDS: CARVEDILOL 3.125 MG TAB PO SCH ×2 (08:00→17:00)
[2020-07-20] MEDS: CLOPIDOGREL BISULFATE 75 MG TAB PO SCH (08:58)
[2020-07-20] MEDS: FUROSEMIDE INJ 10 MG/ML 4 ML VIAL IV SCH ×2 (08:58→17:01)
[2020-07-20] MEDS: ASPIRIN 81 MG ENTERIC COATED PO SCH (08:58)
[2020-07-20] MEDS: SIMVASTATIN 40 MG TAB PO SCH (20:24)
[2020-07-21] VITALS (7 sets, daily range): BP systolic 101–152; BP diastolic 46–66
[2020-07-21 04:37] LABS: BASOPHILS % 0.5 % (0.0-1.0); EOSINOPHILS # (AUTO) 0.3 (0.0-0.4); EOSINOPHILS % 3.5 % (0.0-6.0); HEMOGLOBIN 8.4 g/dL (14.0-18.0); LYMPHOCYTES # (AUTO) 0.8 (1.0-3.2); LYMPHOCYTES % 10.6 % (18.0-39.1); MEAN CORPUSCULAR HEMOGLOBIN 23.5 pg (28-32); MEAN CORPUSCULAR VOLUME 83.8 fL (81-99); MONOCYTES # (AUTO) 0.7 (0.2-0.8); MONOCYTES % 9.2 % (4.4-11.3); NEUTROPHILS # (AUTO) 5.6 (2.1-6.9); NEUTROPHILS % 75.9 % (38.7-80.0); PLATELET COUNT 243 x10e3/uL (140-360); RED BLOOD COUNT 3.58 x10e6/uL (4.3-5.7); RED CELL DISTRIBUTION WIDTH 19.8 % (11.7-14.4)
[2020-07-21 04:39] LABS: CALCIUM IONIZED 1.1 mmol/L (1.09-1.30)
[2020-07-21 04:56] LABS: ALBUMIN 2.2 g/dL (3.5-5.0); ALBUMIN/GLOBULIN RATIO 0.5 (0.8-2.0); ANION GAP 17.8 mmol/L (8-16); CALCIUM 7.9 mg/dL (8.4-10.2); CREATININE, SERUM 2.74 mg/dL (0.72-1.25); MAGNESIUM 1.7 MG/DL (1.3-2.1); PHOSPHORUS 5.1 MG/DL (2.3-4.7); POTASSIUM 3.8 mmol/L (3.5-5.1)
[2020-07-21] MEDS: INSULIN LISPRO 100 UNIT/1 ML 3ML VIAL SQ SCH ×3 (07:30→16:30)
[2020-07-21] MEDS: INSULIN REGULAR, HUMAN 100 UNIT/1 ML 3ML VIAL SQ SCH ×4 (07:30→20:12)
[2020-07-21] MEDS: FUROSEMIDE INJ 10 MG/ML 4 ML VIAL IV SCH (09:07)
[2020-07-21] MEDS: ASPIRIN 81 MG ENTERIC COATED PO SCH (09:07)
[2020-07-21] MEDS: CLOPIDOGREL BISULFATE 75 MG TAB PO SCH (09:07)
[2020-07-21] MEDS: CARVEDILOL 3.125 MG TAB PO SCH ×2 (09:07→18:00)
[2020-07-21 12:42] LABS: CLARITY,URINE SL CLOUDY (CLEAR); COLOR,URINE PINK (YELLOW)
[2020-07-21 12:43] LABS: KETONES,URINE NEGATIVE (NEGATIVE); LEUKOCYTE ESTERASE ,URINE SMALL (NEGATIVE); NITRITE,URINE NEGATIVE (NEGATIVE); PROTEIN,URINE DIPSTICK 2+ (NEGATIVE); URINE UROBILINOGEN 0.2 mg/dL (0.2 - 1)
[2020-07-21 12:46] LABS: RBC,URINE >50 /HPF (0-5)
[2020-07-21 12:47] LABS: BACTERIA,URINE MODERATE /HPF
[2020-07-21 12:48] LABS: YEAST,URINE MODERATE
[2020-07-21 18:27] LABS: FERRITIN 68.73 ng/mL (21.81-274.66)
[2020-07-21] MEDS: SIMVASTATIN 40 MG TAB PO SCH (20:25)
[2020-07-22] VITALS (8 sets, daily range): BP systolic 72–147; BP diastolic 41–74
[2020-07-22 05:42] LABS: BASOPHILS % 0.3 % (0.0-1.0); EOSINOPHILS # (AUTO) 0.3 (0.0-0.4); EOSINOPHILS % 5.2 % (0.0-6.0); HEMATOCRIT 28.2 % (38.2-49.6); HEMOGLOBIN 7.9 g/dL (14.0-18.0); LYMPHOCYTES # (AUTO) 0.8 (1.0-3.2); LYMPHOCYTES % 14.5 % (18.0-39.1); MEAN CORPUSCULAR HEMOGLOBIN 23.2 pg (28-32); MEAN CORPUSCULAR VOLUME 82.9 fL (81-99); MONOCYTES # (AUTO) 0.5 (0.2-0.8); MONOCYTES % 8.5 % (4.4-11.3); NEUTROPHILS # (AUTO) 4.1 (2.1-6.9); PLATELET COUNT 218 x10e3/uL (140-360); RED CELL DISTRIBUTION WIDTH 19.5 % (11.7-14.4)
[2020-07-22 06:04] LABS: CALCIUM IONIZED 1.2 mmol/L (1.09-1.30)
[2020-07-22 06:30] LABS: ANISOCYTOSIS MODERATE; HYPOCHROMASIA SLIGHT
[2020-07-22 06:32] LABS: OVALOCYTES FEW; RBC MORPHOLOGY COMMENT ABNORMAL
[2020-07-22 06:33] LABS: PLATELET ESTIMATE ADEQUATE; PLATELET MORPHOLOGY COMMENT FEW LARGE
[2020-07-22 06:47] LABS: ALBUMIN 2.2 g/dL (3.5-5.0); ALBUMIN/GLOBULIN RATIO 0.5 (0.8-2.0); ANION GAP 15.7 mmol/L (8-16); CALCIUM 7.8 mg/dL (8.4-10.2); CREATININE, SERUM 2.46 mg/dL (0.72-1.25); MAGNESIUM 1.8 MG/DL (1.3-2.1); PHOSPHORUS 5.6 MG/DL (2.3-4.7); POTASSIUM 3.7 mmol/L (3.5-5.1)
[2020-07-22] MEDS: INSULIN REGULAR, HUMAN 100 UNIT/1 ML 3ML VIAL SQ SCH ×4 (07:30→21:00)
[2020-07-22] MEDS: CARVEDILOL 3.125 MG TAB PO SCH ×2 (08:06→17:00)
[2020-07-22] MEDS: CLOPIDOGREL BISULFATE 75 MG TAB PO SCH (08:06)
[2020-07-22] MEDS: ASPIRIN 81 MG ENTERIC COATED PO SCH (08:06)
[2020-07-22] MEDS: INSULIN LISPRO 100 UNIT/1 ML 3ML VIAL SQ SCH ×3 (08:30→16:30)
[2020-07-22] MEDS ORDERED: SODIUM FERRIC GLUCONATE COMPLX 125 MG in SODIUM CHLORIDE 0.9% 100 ML 100 ML IV ONE (14:00)
[2020-07-22] MEDS: SEVELAMER CARBONATE 800 MG TAB PO SCH (16:50)
[2020-07-22 17:53] LABS: INR 1.15; PARTIAL THROMBOPLASTIN TIME 30.3 seconds (23.8-35.5); PROTHROMBIN TIME 15.4 seconds (11.9-14.5)
[2020-07-22] MEDS ORDERED: SODIUM CHLORIDE 0.9% 250ML 250 ML IV ONE (18:35)
[2020-07-22] MEDS: SIMVASTATIN 40 MG TAB PO SCH (21:00)
[2020-07-23] VITALS (7 sets, daily range): BP systolic 149–169; BP diastolic 48–110
[2020-07-23] MEDS: ASPIRIN 81 MG ENTERIC COATED PO SCH (09:17)
[2020-07-23] MEDS: CLOPIDOGREL BISULFATE 75 MG TAB PO SCH (09:17)
[2020-07-23] MEDS: SEVELAMER CARBONATE 800 MG TAB PO SCH ×3 (09:17→17:03)
[2020-07-23] MEDS: INSULIN LISPRO 100 UNIT/1 ML 3ML VIAL SQ SCH ×3 (10:50→17:39)
[2020-07-23] MEDS: INSULIN REGULAR, HUMAN 100 UNIT/1 ML 3ML VIAL SQ SCH ×3 (10:50→16:10)
[2020-07-23] MEDS ORDERED: FUROSEMIDE 40 MG TAB PO NR (14:30)
[2020-07-23] MEDS ORDERED: BASAGLAR K100 UNIT/1 (15:35)
[2020-07-23] MEDS ORDERED: NOVOLOG100 UNITS1 SQ (15:35)
[2020-07-23] MEDS ORDERED: CLOPIDOGREL75 MG PO (15:35)
[2020-07-23] MEDS ORDERED: FA-80.8 MG (15:36)
[2020-07-24] MEDS ORDERED: FUROSEMIDE 40 MG TAB PO SCH ×2 (09:00)
== END 2020-07-23 20:45 | disposition home or self-care (01) | DRG 291 ==
LOC: ER 16:23 → ERHOLD 17:58 → MED/SURG3 23:37
DX: I13.0 Hypertensive heart and chronic kidney disease with heart failure and stage 1 through stage 4 chronic kidney disease, or unspecified chronic kidney disease (principal); I50.23 Acute on chronic systolic (congestive) heart failure; Z68.42 Body mass index [BMI] 45.0-49.9, adult; N17.9 Acute kidney failure, unspecified; E87.2 Acidosis; E66.01 Morbid (severe) obesity due to excess calories; E11.51 Type 2 diabetes mellitus with diabetic peripheral angiopathy without gangrene; Z79.899 Other long term (current) drug therapy; E88.09 Other disorders of plasma-protein metabolism, not elsewhere classified; I25.10 Atherosclerotic heart disease of native coronary artery without angina pectoris; Z95.1 Presence of aortocoronary bypass graft; E83.39 Other disorders of phosphorus metabolism; E11.22 Type 2 diabetes mellitus with diabetic chronic kidney disease; N18.30 Chronic kidney disease, stage 3 unspecified; E11.621 Type 2 diabetes mellitus with foot ulcer; E11.628 Type 2 diabetes mellitus with other skin complications; S91.302A Unspecified open wound, left foot, initial encounter; Z20.822 Contact with and (suspected) exposure to COVID-19
CPT/HCPCS: 36415; 51700; 71045; 76770; 80048; 80053; 81001; 81050; 82232; 82550; 82553; 82607; 82728; 82746; 82784; 82785; 82948; 83010; 83540; 83605; 83615; 83735; 83880; 84100; 84156; 84165; 84166; 84466; 84484; 85025; 85045; 85610; 85730; 86039; 86160; 86225; 86335; 87086; 93005; 93306; 99251; 99284; J1817; J1940; J2916; J7050; U0002

== ENCOUNTER 2021-04-17 17:02 | Inpatient (IN) | payer OTHER ==
[~2021-04-17] VITALS: Ht 175.3 cm; Wt 144.2 kg
[~2021-04-17 17:02] MED LIST changes: +BASAGLAR K100 UNIT/1 SQ; +CLOPIDOGREL75 MG PO; +FA-80.8 MG; +NOVOLOG100 UNITS1 SQ
[2021-04-17 18:42] LABS: BASOPHILS % 0.2 % (0.0-1.0); EOSINOPHILS # (AUTO) 0.1 (0.0-0.4); EOSINOPHILS % 0.4 % (0.0-6.0); HEMATOCRIT 30.5 % (38.2-49.6); HEMOGLOBIN 9.5 g/dL (14.0-18.0); LYMPHOCYTES # (AUTO) 0.6 (1.0-3.2); MEAN CORPUSCULAR HEMOGLOBIN 26.2 pg (28-32); MEAN CORPUSCULAR HGB CONC 31.1 g/dL (31-35); MEAN CORPUSCULAR VOLUME 84.3 fL (81-99); MONOCYTES # (AUTO) 0.8 (0.2-0.8); NEUTROPHILS # (AUTO) 17.9 (2.1-6.9); NEUTROPHILS % 91.7 % (38.7-80.0); PLATELET COUNT 171 x10e3/uL (140-360); RED BLOOD COUNT 3.62 x10e6/uL (4.3-5.7); RED CELL DISTRIBUTION WIDTH 21.6 % (11.7-14.4)
[2021-04-17 18:48] LABS: INR 1.4; PROTHROMBIN TIME 18.3 seconds (11.9-14.5)
[2021-04-17 18:49] LABS: PARTIAL THROMBOPLASTIN TIME 45.8 seconds (23.8-35.5)
[2021-04-17 18:55] LABS: ANION GAP 21.1 mmol/L (8-16); CALCIUM 9.6 mg/dL (8.4-10.2); CREATININE, SERUM 2.43 mg/dL (0.72-1.25); POTASSIUM 5.1 mmol/L (3.5-5.1)
[2021-04-17] MEDS ORDERED: Vancomycin IV 1 GM in SODIUM CHLORIDE 0.9% 250ML 250 ML IV SCH (20:00)
[2021-04-17] MEDS: Vancomycin IV 1 GM in SODIUM CHLORIDE 0.9% 250ML 250 ML IV SCH (21:15)
[2021-04-17] MEDS: CEFEPIME 1 GM in SODIUM CHLORIDE 0.9% 50ML 50 ML IV SCH (21:22)
[2021-04-17] MEDS ORDERED: DEXTROSE 50% SYRINGE 50 ML IV PRN (21:30)
[2021-04-17] MEDS ORDERED: SODIUM CHLORIDE 0.9% 1000ML 1,000 ML IV ONE (21:30)
[2021-04-17] MEDS ORDERED: ONDANSETRON HCL INJ 2MG/ML 2ML 2 MG/ML VIAL IV PRN (23:30)
[2021-04-18] VITALS (9 sets, daily range): BP systolic 87–101; BP diastolic 38–75
[2021-04-18] MEDS: Morphine 4mg Syringe 4 MG/ML INJ IV PRN (01:15)
[2021-04-18] MEDS ORDERED: PANTOPRAZOLE SO40 MG PO (01:52)
[2021-04-18] MEDS ORDERED: FLOMAX0.4 MG PO (01:52)
[2021-04-18] MEDS ORDERED: GABAPENTIN100 MG PO (01:52)
[2021-04-18] MEDS ORDERED: ZINC SULFATE50 MG PO (01:52)
[2021-04-18] MEDS ORDERED: SPIRONOLACTONE25 MG PO (01:52)
[2021-04-18] MEDS ORDERED: VITAMIN D325 MCG (01:52)
[2021-04-18] MEDS ORDERED: CARVEDILOL3.125 MG PO (01:52)
[2021-04-18] MEDS ORDERED: LOSARTAN POTASS50 MG PO (01:52)
[2021-04-18] MEDS ORDERED: SIMVASTATIN40 MG PO (01:52)
[2021-04-18] MEDS: CEFEPIME 1 GM in SODIUM CHLORIDE 0.9% 50ML 50 ML IV SCH ×3 (05:22→23:18)
[2021-04-18 06:34] LABS: BASOPHILS # (AUTO) 0.1 (0.0-0.1); BASOPHILS % 0.3 % (0.0-1.0); EOSINOPHILS % 0.2 % (0.0-6.0); HEMATOCRIT 27.8 % (38.2-49.6); HEMOGLOBIN 8.7 g/dL (14.0-18.0); LYMPHOCYTES # (AUTO) 0.6 (1.0-3.2); LYMPHOCYTES % 2.5 % (18.0-39.1); MEAN CORPUSCULAR HEMOGLOBIN 25.9 pg (28-32); MEAN CORPUSCULAR HGB CONC 31.3 g/dL (31-35); MEAN CORPUSCULAR VOLUME 82.7 fL (81-99); MONOCYTES # (AUTO) 1.2 (0.2-0.8); MONOCYTES % 4.9 % (4.4-11.3); NEUTROPHILS # (AUTO) 21.4 (2.1-6.9); NEUTROPHILS % 90.7 % (38.7-80.0); PLATELET COUNT 171 x10e3/uL (140-360); RED BLOOD COUNT 3.36 x10e6/uL (4.3-5.7); RED CELL DISTRIBUTION WIDTH 21.5 % (11.7-14.4)
[2021-04-18 06:46] LABS: ALBUMIN 2.3 g/dL (3.5-5.0); ALBUMIN/GLOBULIN RATIO 0.5 (0.8-2.0); ANION GAP 17.1 mmol/L (8-16); CALCIUM 8.8 mg/dL (8.4-10.2); CREATININE, SERUM 2.42 mg/dL (0.72-1.25); POTASSIUM 5.1 mmol/L (3.5-5.1)
[2021-04-18] MEDS: INSULIN REGULAR, HUMAN 100 UNIT/1 ML SQ SCH ×4 (07:30→20:48)
[2021-04-18 07:48] LABS: BAND NEUTROPHILS % (MANUAL) 3 %; EOSINOPHILS % (MANUAL) 1 % (0-7); LYMPHOCYTES % (MANUAL) 4 % (19-48); MONOCYTES % (MANUAL) 3 % (3.4-9.0); NEUTROPHILS % (MANUAL) 89 % (40-74)
[2021-04-18 07:49] LABS: ANISOCYTOSIS MODERATE
[2021-04-18 07:50] LABS: POIKILOCYTOSIS SLIGHT; POLYCHROMASIA FEW
[2021-04-18 07:51] LABS: PLATELET ESTIMATE ADEQUATE; PLATELET MORPHOLOGY COMMENT RARE EDTA CLUMPING; RBC MORPHOLOGY COMMENT ABNORMAL
[2021-04-18] MEDS ORDERED: VITAMIN D325 MCG PO (08:23)
[2021-04-18] MEDS ORDERED: folic acid PO (08:23)
[2021-04-18] MEDS ORDERED: SODIUM CHLORIDE 0.9% 1000ML 1,000 ML ONE (12:14)
[2021-04-18] MEDS ORDERED: SODIUM CHLORIDE 0.9% 250ML 250 ML IV ONE (12:15)
[2021-04-18] MEDS: SODIUM CHLORIDE 0.9% 1000ML 1,000 ML IV SCH (13:00)
[2021-04-18] MEDS: Vancomycin IV 1 GM in SODIUM CHLORIDE 0.9% 250ML 250 ML IV SCH (20:47)
[2021-04-18] MEDS: INSULIN GLARGINE 100 UNITS/ML VIAL SQ SCH (23:33)
[2021-04-19] VITALS (8 sets, daily range): BP systolic 78–111; BP diastolic 24–51
[2021-04-19] MEDS: SODIUM CHLORIDE 0.9% 1000ML 1,000 ML IV SCH ×2 (01:04→15:19)
[2021-04-19 06:23] LABS: BASOPHILS # (AUTO) 0.1 (0.0-0.1); BASOPHILS % 0.3 % (0.0-1.0); EOSINOPHILS # (AUTO) 0.3 (0.0-0.4); EOSINOPHILS % 1.4 % (0.0-6.0); LYMPHOCYTES % 4.9 % (18.0-39.1); MEAN CORPUSCULAR HEMOGLOBIN 25.9 pg (28-32); MEAN CORPUSCULAR HGB CONC 31.2 g/dL (31-35); MEAN CORPUSCULAR VOLUME 83.1 fL (81-99); MONOCYTES # (AUTO) 1.1 (0.2-0.8); MONOCYTES % 5.4 % (4.4-11.3); NEUTROPHILS # (AUTO) 17.3 (2.1-6.9); NEUTROPHILS % 86.4 % (38.7-80.0); PLATELET COUNT 166 x10e3/uL (140-360); RED BLOOD COUNT 3.13 x10e6/uL (4.3-5.7); RED CELL DISTRIBUTION WIDTH 21.4 % (11.7-14.4)
[2021-04-19 06:29] LABS: HEMATOCRIT 25.4 % (38.2-49.6); HEMOGLOBIN 8.2 g/dL (14.0-18.0)
[2021-04-19 06:45] LABS: ANION GAP 17.6 mmol/L (8-16); CALCIUM 8.2 mg/dL (8.4-10.2); CREATININE, SERUM 2.82 mg/dL (0.72-1.25); MAGNESIUM 1.9 MG/DL (1.3-2.1); PHOSPHORUS 5.9 MG/DL (2.3-4.7); POTASSIUM 4.6 mmol/L (3.5-5.1)
[2021-04-19] MEDS: CEFEPIME 1 GM in SODIUM CHLORIDE 0.9% 50ML 50 ML IV SCH ×3 (07:27→21:31)
[2021-04-19] MEDS: INSULIN REGULAR, HUMAN 100 UNIT/1 ML SQ SCH ×4 (07:30→21:00)
[2021-04-19] MEDS: ASPIRIN 81 MG ENTERIC COATED PO SCH (08:58)
[2021-04-19] MEDS: PANTOPRAZOLE SOD 40 MG TABEC PO SCH (08:58)
[2021-04-19] MEDS: SIMVASTATIN 40 MG TAB PO SCH (08:59)
[2021-04-19] MEDS: GABAPENTIN 100 MG CAP PO SCH ×3 (08:59→21:00)
[2021-04-19] MEDS: ZINC SULFATE 220 MG CAP PO SCH (08:59)
[2021-04-19] MEDS: FOLIC ACID 1 MG TAB PO SCH (08:59)
[2021-04-19] MEDS: CARVEDILOL 3.125 MG TAB PO SCH ×2 (08:59→16:42)
[2021-04-19] MEDS: CHOLECALCIFEROL 1,000 UNIT TAB PO SCH (08:59)
[2021-04-19] MEDS: TAMSULOSIN HCL 0.4 MG CAP PO SCH (21:00)
[2021-04-19] MEDS: INSULIN GLARGINE 100 UNITS/ML VIAL SQ SCH (21:00)
[2021-04-19] MEDS: Vancomycin IV 1 GM in SODIUM CHLORIDE 0.9% 250ML 250 ML IV SCH (21:00)
[2021-04-20 00:35] VITALS: BP 94/34
[2021-04-20 03:51] VITALS: BP 94/34
[2021-04-20 04:24] VITALS: BP 102/30
[2021-04-20] MEDS: CEFEPIME 1 GM in SODIUM CHLORIDE 0.9% 50ML 50 ML IV SCH (06:00)
[2021-04-20] MEDS: SODIUM CHLORIDE 0.9% 1000ML 1,000 ML IV SCH ×2 (06:18→09:12)
[2021-04-20 06:59] LABS: BASOPHILS # (AUTO) 0.1 (0.0-0.1); BASOPHILS % 0.4 % (0.0-1.0); EOSINOPHILS # (AUTO) 0.2 (0.0-0.4); EOSINOPHILS % 0.9 % (0.0-6.0); HEMATOCRIT 27.7 % (38.2-49.6); HEMOGLOBIN 8.6 g/dL (14.0-18.0); LYMPHOCYTES % 4.3 % (18.0-39.1); MEAN CORPUSCULAR HEMOGLOBIN 26.1 pg (28-32); MEAN CORPUSCULAR VOLUME 83.9 fL (81-99); MONOCYTES # (AUTO) 1.3 (0.2-0.8); MONOCYTES % 5.6 % (4.4-11.3); NEUTROPHILS # (AUTO) 19.3 (2.1-6.9); NEUTROPHILS % 84.1 % (38.7-80.0); PLATELET COUNT 186 x10e3/uL (140-360); RED CELL DISTRIBUTION WIDTH 21.7 % (11.7-14.4)
[2021-04-20 07:15] LABS: ANION GAP 15.9 mmol/L (8-16); CALCIUM 8.1 mg/dL (8.4-10.2); CREATININE, SERUM 3.53 mg/dL (0.72-1.25); POTASSIUM 4.9 mmol/L (3.5-5.1)
[2021-04-20] MEDS: INSULIN REGULAR, HUMAN 100 UNIT/1 ML SQ SCH ×4 (07:30→20:54)
[2021-04-20] MEDS: PANTOPRAZOLE SOD 40 MG TABEC PO SCH (07:30)
[2021-04-20 08:13] VITALS: BP 96/58
[2021-04-20 08:59] VITALS: BP 96/58
[2021-04-20] MEDS: CARVEDILOL 3.125 MG TAB PO SCH ×2 (09:00→17:06)
[2021-04-20] MEDS: ASPIRIN 81 MG ENTERIC COATED PO SCH (09:11)
[2021-04-20] MEDS: GABAPENTIN 100 MG CAP PO SCH (09:11)
[2021-04-20] MEDS: FOLIC ACID 1 MG TAB PO SCH (09:11)
[2021-04-20] MEDS: SIMVASTATIN 40 MG TAB PO SCH (09:12)
[2021-04-20] MEDS: CHOLECALCIFEROL 1,000 UNIT TAB PO SCH (09:12)
[2021-04-20] MEDS: ZINC SULFATE 220 MG CAP PO SCH (09:12)
[2021-04-20 20:00] VITALS: BP 82/51
[2021-04-20] MEDS: TAMSULOSIN HCL 0.4 MG CAP PO SCH (20:54)
[2021-04-20] MEDS: INSULIN GLARGINE 100 UNITS/ML VIAL SQ SCH (20:55)
[2021-04-21] VITALS: BP 90/48
[2021-04-21 04:00] VITALS: BP 80/60
[2021-04-21] MEDS: SODIUM CHLORIDE 0.9% 1000ML 1,000 ML IV SCH ×2 (05:09→20:12)
[2021-04-21 06:17] LABS: BASOPHILS # (AUTO) 0.1 (0.0-0.1); BASOPHILS % 0.5 % (0.0-1.0); EOSINOPHILS # (AUTO) 0.4 (0.0-0.4); EOSINOPHILS % 2.1 % (0.0-6.0); HEMATOCRIT 28.7 % (38.2-49.6); LYMPHOCYTES # (AUTO) 0.8 (1.0-3.2); MEAN CORPUSCULAR HGB CONC 31.4 g/dL (31-35); MEAN CORPUSCULAR VOLUME 82.9 fL (81-99); MONOCYTES # (AUTO) 1.1 (0.2-0.8); MONOCYTES % 6.3 % (4.4-11.3); NEUTROPHILS # (AUTO) 13.7 (2.1-6.9); NEUTROPHILS % 81.6 % (38.7-80.0); PLATELET COUNT 186 x10e3/uL (140-360); RED BLOOD COUNT 3.46 x10e6/uL (4.3-5.7); RED CELL DISTRIBUTION WIDTH 21.6 % (11.7-14.4)
[2021-04-21] MEDS: INSULIN REGULAR, HUMAN 100 UNIT/1 ML SQ SCH ×4 (07:30→21:00)
[2021-04-21] MEDS: PANTOPRAZOLE SOD 40 MG TABEC PO SCH (08:18)
[2021-04-21] MEDS: CEFEPIME 1 GM in SODIUM CHLORIDE 0.9% 50ML 50 ML IV SCH (08:19)
[2021-04-21] MEDS: CHOLECALCIFEROL 1,000 UNIT TAB PO SCH (08:19)
[2021-04-21] MEDS: ZINC SULFATE 220 MG CAP PO SCH (08:19)
[2021-04-21] MEDS: ASPIRIN 81 MG ENTERIC COATED PO SCH (08:19)
[2021-04-21] MEDS: SIMVASTATIN 40 MG TAB PO SCH (08:19)
[2021-04-21] MEDS: FOLIC ACID 1 MG TAB PO SCH (08:19)
[2021-04-21] MEDS ORDERED: ONDANSETRON HCL 4 MG ORAL DISINTEGRATING TAB PO PRN (08:30)
[2021-04-21 08:58] VITALS: BP 80/60
[2021-04-21] MEDS ORDERED: SODIUM CHLORIDE 0.9% 1000ML 1,000 ML IV ONE (12:00)
[2021-04-21 12:22] VITALS: BP 75/26
[2021-04-21 15:56] VITALS: BP 72/23
[2021-04-21 16:32] LABS: BASOPHILS # (AUTO) 0.1 (0.0-0.1); BASOPHILS % 0.4 % (0.0-1.0); EOSINOPHILS # (AUTO) 0.3 (0.0-0.4); EOSINOPHILS % 1.6 % (0.0-6.0); HEMATOCRIT 31.2 % (38.2-49.6); HEMOGLOBIN 9.3 g/dL (14.0-18.0); LYMPHOCYTES # (AUTO) 0.6 (1.0-3.2); LYMPHOCYTES % 3.8 % (18.0-39.1); MEAN CORPUSCULAR HEMOGLOBIN 25.8 pg (28-32); MEAN CORPUSCULAR HGB CONC 29.8 g/dL (31-35); MEAN CORPUSCULAR VOLUME 86.4 fL (81-99); MONOCYTES # (AUTO) 0.8 (0.2-0.8); MONOCYTES % 5.5 % (4.4-11.3); NEUTROPHILS # (AUTO) 12.9 (2.1-6.9); NEUTROPHILS % 84.3 % (38.7-80.0); PLATELET COUNT 171 x10e3/uL (140-360); RED BLOOD COUNT 3.61 x10e6/uL (4.3-5.7); RED CELL DISTRIBUTION WIDTH 21.9 % (11.7-14.4)
[2021-04-21 16:52] LABS: ANION GAP 17.3 mmol/L (8-16); CALCIUM 7.5 mg/dL (8.4-10.2); CREATININE, SERUM 4.18 mg/dL (0.72-1.25)
[2021-04-21 16:53] LABS: POTASSIUM 5.3 mmol/L (3.5-5.1)
[2021-04-21 20:00] VITALS: BP 86/48
[2021-04-21] MEDS: INSULIN GLARGINE 100 UNITS/ML VIAL SQ SCH (21:00)
[2021-04-21] MEDS: TAMSULOSIN HCL 0.4 MG CAP PO SCH (21:10)
[2021-04-22] VITALS (8 sets, daily range): BP systolic 80–126; BP diastolic 30–114
[2021-04-22] MEDS: ACETAMINOPHEN 325 MG TAB PO PRN ×2 (04:39→13:53)
[2021-04-22 05:21] LABS: BASOPHILS # (AUTO) 0.1 (0.0-0.1); BASOPHILS % 0.3 % (0.0-1.0); EOSINOPHILS # (AUTO) 0.3 (0.0-0.4); EOSINOPHILS % 1.9 % (0.0-6.0); HEMATOCRIT 29.6 % (38.2-49.6); HEMOGLOBIN 9.1 g/dL (14.0-18.0); LYMPHOCYTES # (AUTO) 0.7 (1.0-3.2); MEAN CORPUSCULAR HEMOGLOBIN 26.1 pg (28-32); MEAN CORPUSCULAR HGB CONC 30.7 g/dL (31-35); MEAN CORPUSCULAR VOLUME 84.8 fL (81-99); MONOCYTES # (AUTO) 0.8 (0.2-0.8); MONOCYTES % 5.3 % (4.4-11.3); NEUTROPHILS % 83.4 % (38.7-80.0); PLATELET COUNT 181 x10e3/uL (140-360); RED BLOOD COUNT 3.49 x10e6/uL (4.3-5.7); RED CELL DISTRIBUTION WIDTH 22.1 % (11.7-14.4)
[2021-04-22 05:50] LABS: CALCIUM 8.4 mg/dL (8.4-10.2); CREATININE, SERUM 4.61 mg/dL (0.72-1.25)
[2021-04-22] MEDS: INSULIN REGULAR, HUMAN 100 UNIT/1 ML SQ SCH ×4 (07:30→21:00)
[2021-04-22] MEDS: CEFEPIME 1 GM in SODIUM CHLORIDE 0.9% 50ML 50 ML IV SCH (08:31)
[2021-04-22] MEDS: ZINC SULFATE 220 MG CAP PO SCH (08:32)
[2021-04-22] MEDS: CHOLECALCIFEROL 1,000 UNIT TAB PO SCH (08:32)
[2021-04-22] MEDS: ASPIRIN 81 MG ENTERIC COATED PO SCH (08:32)
[2021-04-22] MEDS: FOLIC ACID 1 MG TAB PO SCH (08:33)
[2021-04-22] MEDS: PANTOPRAZOLE SOD 40 MG TABEC PO SCH (08:33)
[2021-04-22] MEDS: SIMVASTATIN 40 MG TAB PO SCH (08:33)
[2021-04-22] MEDS: SODIUM CHLORIDE 0.9% 1000ML 1,000 ML IV SCH ×2 (08:42→21:02)
[2021-04-22] MEDS: MIDODRINE HCL 5 MG TABLET PO SCH ×3 (11:00→22:00)
[2021-04-22] MEDS ORDERED: HEPARIN SOD (PORCINE) 1000 UNIT/ML SDV ONE (14:44)
[2021-04-22] MEDS ORDERED: LIDOCAINE HCL 1% LOCAL INJ 20 ML VIAL ONE (14:48)
[2021-04-22] MEDS: INSULIN GLARGINE 100 UNITS/ML VIAL SQ SCH (21:00)
[2021-04-22] MEDS: TAMSULOSIN HCL 0.4 MG CAP PO SCH (21:02)
[2021-04-23 00:50] VITALS: BP 76/37
[2021-04-23 05:37] VITALS: BP 150/115
[2021-04-23] MEDS: MIDODRINE HCL 5 MG TABLET PO SCH ×3 (06:24→22:00)
[2021-04-23 06:28] VITALS: BP 64/53
[2021-04-23] MEDS: INSULIN REGULAR, HUMAN 100 UNIT/1 ML SQ SCH ×4 (07:30→20:39)
[2021-04-23] MEDS: PANTOPRAZOLE SOD 40 MG TABEC PO SCH (07:30)
[2021-04-23 08:49] VITALS: BP 64/53
[2021-04-23] MEDS: CHOLECALCIFEROL 1,000 UNIT TAB PO SCH (09:00)
[2021-04-23] MEDS: SIMVASTATIN 40 MG TAB PO SCH (09:00)
[2021-04-23] MEDS: ASPIRIN 81 MG ENTERIC COATED PO SCH (09:00)
[2021-04-23] MEDS: FOLIC ACID 1 MG TAB PO SCH (09:00)
[2021-04-23] MEDS: ZINC SULFATE 220 MG CAP PO SCH (09:00)
[2021-04-23] MEDS: SODIUM CHLORIDE 0.9% 1000ML 1,000 ML IV SCH ×2 (09:22→22:12)
[2021-04-23] MEDS: CEFEPIME 1 GM in SODIUM CHLORIDE 0.9% 50ML 50 ML IV SCH (09:22)
[2021-04-23] MEDS ORDERED: HEPARIN SOD (PORCINE) 1000 UNIT/ML SDV ONE (10:19)
[2021-04-23] MEDS: Morphine 4mg Syringe 4 MG/ML INJ IV PRN (11:35)
[2021-04-23 15:37] LABS: BASOPHILS % 0.3 % (0.0-1.0); EOSINOPHILS # (AUTO) 0.2 (0.0-0.4); HEMATOCRIT 29.5 % (38.2-49.6); LYMPHOCYTES # (AUTO) 0.7 (1.0-3.2); LYMPHOCYTES % 4.6 % (18.0-39.1); MEAN CORPUSCULAR HEMOGLOBIN 25.6 pg (28-32); MEAN CORPUSCULAR HGB CONC 30.5 g/dL (31-35); MONOCYTES # (AUTO) 0.6 (0.2-0.8); MONOCYTES % 3.8 % (4.4-11.3); NEUTROPHILS # (AUTO) 12.6 (2.1-6.9); NEUTROPHILS % 86.3 % (38.7-80.0); PLATELET COUNT 189 x10e3/uL (140-360); RED BLOOD COUNT 3.51 x10e6/uL (4.3-5.7); RED CELL DISTRIBUTION WIDTH 22.5 % (11.7-14.4)
[2021-04-23 15:54] LABS: ANION GAP 19.4 mmol/L (8-16); CALCIUM 8.2 mg/dL (8.4-10.2); CREATININE, SERUM 5.3 mg/dL (0.72-1.25)
[2021-04-23 15:59] LABS: POTASSIUM 5.4 mmol/L (3.5-5.1)
[2021-04-23] MEDS ORDERED: MANNITOL 25% 12.5GM/50 ML VIAL IV PRN (19:30)
[2021-04-23] MEDS ORDERED: SODIUM CHLORIDE 0.9% 1000ML 2,000 ML IV PRN (19:30)
[2021-04-23] MEDS ORDERED: ALBUMIN 25% 12.5GM 0.25 GM/ML BTL IV PRN (19:30)
[2021-04-23 20:18] VITALS: BP 84/24
[2021-04-23] MEDS: INSULIN GLARGINE 100 UNITS/ML VIAL SQ SCH (20:39)
[2021-04-23 21:00] VITALS: BP 84/24
[2021-04-23] MEDS: TAMSULOSIN HCL 0.4 MG CAP PO SCH (21:00)
[2021-04-24] VITALS (14 sets, daily range): BP systolic 86–135; BP diastolic 21–72
[2021-04-24 05:36] LABS: BASOPHILS # (AUTO) 0.1 (0.0-0.1); BASOPHILS % 0.3 % (0.0-1.0); EOSINOPHILS # (AUTO) 0.1 (0.0-0.4); EOSINOPHILS % 0.6 % (0.0-6.0); HEMATOCRIT 27.9 % (38.2-49.6); HEMOGLOBIN 8.8 g/dL (14.0-18.0); LYMPHOCYTES # (AUTO) 0.5 (1.0-3.2); LYMPHOCYTES % 2.8 % (18.0-39.1); MEAN CORPUSCULAR HEMOGLOBIN 26.1 pg (28-32); MEAN CORPUSCULAR HGB CONC 31.5 g/dL (31-35); MEAN CORPUSCULAR VOLUME 82.8 fL (81-99); MONOCYTES # (AUTO) 0.6 (0.2-0.8); MONOCYTES % 3.4 % (4.4-11.3); NEUTROPHILS % 89.9 % (38.7-80.0); PLATELET COUNT 162 x10e3/uL (140-360); RED BLOOD COUNT 3.37 x10e6/uL (4.3-5.7); RED CELL DISTRIBUTION WIDTH 22.5 % (11.7-14.4)
[2021-04-24] MEDS: MIDODRINE HCL 5 MG TABLET PO SCH ×3 (06:00→21:51)
[2021-04-24 06:03] LABS: ANION GAP 19.9 mmol/L (8-16); CALCIUM 8.3 mg/dL (8.4-10.2); CREATININE, SERUM 4.71 mg/dL (0.72-1.25); POTASSIUM 4.9 mmol/L (3.5-5.1)
[2021-04-24] MEDS: INSULIN REGULAR, HUMAN 100 UNIT/1 ML SQ SCH ×4 (07:30→21:00)
[2021-04-24] MEDS: PANTOPRAZOLE SOD 40 MG TABEC PO SCH (07:30)
[2021-04-24] MEDS: ZINC SULFATE 220 MG CAP PO SCH (09:00)
[2021-04-24] MEDS: ASPIRIN 81 MG ENTERIC COATED PO SCH (09:00)
[2021-04-24] MEDS: CHOLECALCIFEROL 1,000 UNIT TAB PO SCH (09:00)
[2021-04-24] MEDS: FOLIC ACID 1 MG TAB PO SCH (09:00)
[2021-04-24] MEDS: SIMVASTATIN 40 MG TAB PO SCH (09:00)
[2021-04-24] MEDS: SODIUM CHLORIDE 0.9% 1000ML 1,000 ML IV SCH ×2 (10:42→23:12)
[2021-04-24] MEDS: CEFEPIME 1 GM in SODIUM CHLORIDE 0.9% 50ML 50 ML IV SCH (13:33)
[2021-04-24] MEDS ORDERED: FUROSEMIDE INJ 10 MG/ML 4 ML VIAL IV ONE (15:00)
[2021-04-24] MEDS ORDERED: SODIUM CHLORIDE 0.9% 250ML 500 ML IV PRN (17:00)
[2021-04-24] MEDS ORDERED: HEPARIN SOD (PORCINE) 1000 UNIT/ML SDV IV PRN (17:00)
[2021-04-24] MEDS: INSULIN GLARGINE 100 UNITS/ML VIAL SQ SCH (21:00)
[2021-04-24] MEDS: TAMSULOSIN HCL 0.4 MG CAP PO SCH (21:00)
[2021-04-25] VITALS (25 sets, daily range): BP systolic 66–127; BP diastolic 15–105
[2021-04-25] MEDS: MIDODRINE HCL 5 MG TABLET PO SCH ×3 (05:41→21:58)
[2021-04-25 06:27] LABS: BASOPHILS % 0.2 % (0.0-1.0); EOSINOPHILS % 0.2 % (0.0-6.0); HEMATOCRIT 25.6 % (38.2-49.6); LYMPHOCYTES # (AUTO) 0.5 (1.0-3.2); LYMPHOCYTES % 2.7 % (18.0-39.1); MEAN CORPUSCULAR HEMOGLOBIN 25.6 pg (28-32); MEAN CORPUSCULAR HGB CONC 31.3 g/dL (31-35); MEAN CORPUSCULAR VOLUME 82.1 fL (81-99); MONOCYTES # (AUTO) 0.6 (0.2-0.8); MONOCYTES % 3.5 % (4.4-11.3); NEUTROPHILS # (AUTO) 16.5 (2.1-6.9); PLATELET COUNT 155 x10e3/uL (140-360); RED BLOOD COUNT 3.12 x10e6/uL (4.3-5.7); RED CELL DISTRIBUTION WIDTH 22.6 % (11.7-14.4)
[2021-04-25 06:46] LABS: ALBUMIN 2.2 g/dL (3.5-5.0); ALBUMIN/GLOBULIN RATIO 0.4 (0.8-2.0); ANION GAP 16.5 mmol/L (8-16); CALCIUM 8.4 mg/dL (8.4-10.2); CREATININE, SERUM 4.2 mg/dL (0.72-1.25); POTASSIUM 4.5 mmol/L (3.5-5.1)
[2021-04-25] MEDS: INSULIN REGULAR, HUMAN 100 UNIT/1 ML SQ SCH ×4 (07:30→21:00)
[2021-04-25] MEDS: PANTOPRAZOLE SOD 40 MG TABEC PO SCH (07:30)
[2021-04-25] MEDS: FOLIC ACID 1 MG TAB PO SCH (07:51)
[2021-04-25] MEDS: ASPIRIN 81 MG ENTERIC COATED PO SCH (07:51)
[2021-04-25] MEDS: ZINC SULFATE 220 MG CAP PO SCH (07:52)
[2021-04-25] MEDS: CHOLECALCIFEROL 1,000 UNIT TAB PO SCH (07:52)
[2021-04-25] MEDS: SIMVASTATIN 40 MG TAB PO SCH (07:52)
[2021-04-25] MEDS: CEFEPIME 1 GM in SODIUM CHLORIDE 0.9% 50ML 50 ML IV SCH (08:22)
[2021-04-25] MEDS ORDERED: NOREPINEPHRINE 8 MG/D5W 250 ML 250 ML IV SCH (09:30)
[2021-04-25] MEDS: SODIUM CHLORIDE 0.9% 1000ML 1,000 ML IV SCH (11:42)
[2021-04-25] MEDS ORDERED: ETOMIDATE 2 MG/ML 10 ML INJ IV ONE (12:37)
[2021-04-25] MEDS ORDERED: VECURONIUM BROMIDE FOR INJ 20 MG VIAL ONE (12:37)
[2021-04-25] MEDS ORDERED: SUCCINYLCHOLINE CHLORIDE 20 MG/ML 10ML VIAL ONE (12:37)
[2021-04-25] MEDS ORDERED: WATER STERILE 10 ML VIAL ONE (12:37)
[2021-04-25] MEDS ORDERED: HALOPERIDOL LACTATE 5 MG/ML VIAL IV PRN (13:30)
[2021-04-25] MEDS ORDERED: ZIPRASIDONE 20 MG VIAL IM STA (15:45)
[2021-04-25] MEDS ORDERED: FUROSEMIDE INJ 10 MG/ML 4 ML VIAL IV ONE (15:45)
[2021-04-25] MEDS: TAMSULOSIN HCL 0.4 MG CAP PO SCH (21:00)
[2021-04-25] MEDS: INSULIN GLARGINE 100 UNITS/ML VIAL SQ SCH (21:00)
[2021-04-25 23:11] LABS: ABG PCO2 48 mmHg (35-45); ABG PH 7.28 (7.35-7.45)
[2021-04-25 23:12] LABS: ABG HCO3 23 mmol/L (22-26); ABG PO2 87 mmHg (80-105); ABG TCO2 24
[2021-04-25] MEDS ORDERED: NOREPINEPHRINE 8 MG/D5W 250 ML 250 ML ONE (23:30)
[2021-04-25] MEDS ORDERED: NOREPINEPHRINE 8 MG/D5W 250 ML 250 ML IV PRN (23:30)
[2021-04-26] VITALS: BP 68/54
[2021-04-26] MEDS ORDERED: EPINEPHRINE HCL SYRINGE ONE ×2 (00:44→12:39)
[2021-04-26] MEDS ORDERED: SODIUM BICARBONATE 8.4% INJ 50 ML SYR ONE (12:39)
[2021-04-26] MEDS ORDERED: ATROPINE SULFATE 0.1 MG/ML 10ML SYR ONE (12:39)
[2021-04-26] MEDS ORDERED: SODIUM CHLORIDE FLUSH 10 ML SYR ONE (12:39)
[2021-04-26] MEDS ORDERED: DEXTROSE 50% SYRINGE 50 ML IV ONE (12:39)
== END 2021-04-26 07:57 | disposition expired | DRG 871 ==
LOC: ER 17:54 → ERHOLD 21:34 → MED/SURG3 04-18 00:15 → ICU 04-24 16:15
PROVIDERS: ADMIT Internal Medicine; ATTEND Internal Medicine
PROC: 02HV33Z Insertion of Infusion Device into Superior Vena Cava, Percutaneous Approach (ICD-10-PCS; principal; 2021-04-22)
PROC: 5A1D70Z Performance of Urinary Filtration, Intermittent, Less than 6 Hours Per Day (ICD-10-PCS; 2021-04-23)
PROC: 02HV33Z Insertion of Infusion Device into Superior Vena Cava, Percutaneous Approach (ICD-10-PCS; 2021-04-23)
PROC: B548ZZA Ultrasonography of Superior Vena Cava, Guidance (ICD-10-PCS; 2021-04-23)
PROC: 5A1935Z Respiratory Ventilation, Less than 24 Consecutive Hours (ICD-10-PCS; 2021-04-26)
PROC: 0BH18EZ Insertion of Endotracheal Airway into Trachea, Via Natural or Artificial Opening Endoscopic (ICD-10-PCS; 2021-04-26)
PROC: 5A12012 Performance of Cardiac Output, Single, Manual (ICD-10-PCS; 2021-04-26)
DX: A41.9 Sepsis, unspecified organism (principal); G93.41 Metabolic encephalopathy; N17.0 Acute kidney failure with tubular necrosis; L03.115 Cellulitis of right lower limb; I50.22 Chronic systolic (congestive) heart failure; I13.0 Hypertensive heart and chronic kidney disease with heart failure and stage 1 through stage 4 chronic kidney disease, or unspecified chronic kidney disease; N18.4 Chronic kidney disease, stage 4 (severe); T82.524A Displacement of infusion catheter, initial encounter; E87.1 Hypo-osmolality and hyponatremia; Z68.42 Body mass index [BMI] 45.0-49.9, adult; E87.2 Acidosis; I74.9 Embolism and thrombosis of unspecified artery; R65.20 Severe sepsis without septic shock; E11.42 Type 2 diabetes mellitus with diabetic polyneuropathy; I25.10 Atherosclerotic heart disease of native coronary artery without angina pectoris; E78.5 Hyperlipidemia, unspecified; E11.22 Type 2 diabetes mellitus with diabetic chronic kidney disease; E11.69 Type 2 diabetes mellitus with other specified complication; E11.621 Type 2 diabetes mellitus with foot ulcer; L97.519 Non-pressure chronic ulcer of other part of right foot with unspecified severity; E87.5 Hyperkalemia; E11.51 Type 2 diabetes mellitus with diabetic peripheral angiopathy without gangrene; I46.9 Cardiac arrest, cause unspecified; E66.01 Morbid (severe) obesity due to excess calories; G89.4 Chronic pain syndrome; Z20.822 Contact with and (suspected) exposure to COVID-19; Z89.512 Acquired absence of left leg below knee; Z79.82 Long term (current) use of aspirin; Z79.4 Long term (current) use of insulin; Z95.1 Presence of aortocoronary bypass graft; I25.2 Old myocardial infarction; Z89.421 Acquired absence of other right toe(s); Z82.49 Family history of ischemic heart disease and other diseases of the circulatory system; Z99.3 Dependence on wheelchair; Z56.0 Unemployment, unspecified; S00.03XA Contusion of scalp, initial encounter; Z86.73 Personal history of transient ischemic attack (TIA), and cerebral infarction without residual deficits
CPT/HCPCS: 36415; 36556; 36600; 70450; 71045; 74470; 76705; 76937; 77001; 80048; 80053; 80202; 82140; 82805; 82948; 83605; 83735; 84100; 85025; 85610; 85730; 86705; 86706; 87040; 87340; 90962; 93306; 93926; 93971; 94799; 96361; 99251; 99284; C1752; C1769; J0171; J0330; J0692; J1630; J1644; J1815; J1817; J1940; J2001; J2150; J2270; J2405; J3370; J3486; J7030; J7050; J7799; U0002